=== PATIENT | male | born 1930 | race Caucasian/White ===

== ENCOUNTER 2017-04-20 15:03 | Inpatient (IN) | payer OTHER, BC ==
--- NOTE | 2017-04-20 15:12 | PDOC ---
Rapid Medical Evaluation Time Seen by Provider: 04/20/17 15:12 Medical Evaluation: Allergies Allergy/AdvReac Type Severity Reaction Status Date / Time No Known Drug Allergies Allergy Verified 12/23/15 07:56 04/20/17 15:12 I have performed a brief in-person evaluation of this patient. The patient presents with a chief complaint of: Labile BP and possible orthostatis. States he was sent in by Dr Fay's office. H/o HTN, CAD w/ stents , arthritis. Pt c/o not feeling well, but no WHYTE, dizziness, CP or SOB. Pertinent physical exam findings:Vss w/ unremarkable exam I have ordered the following:ekg/cxr/labs The patient will proceed to the ED for further evaluation. 04/20/17 15:17
[2017-04-20 15:53] LABS: BASO % 0.5 % (0-2.0); EOS % 0.6 % (0-4.5); HEMATOCRIT 42.1 % (35.4-49); LYMPH % 10.1 % (8-40); MCH 30.9 pg (25.7-33.7); MCHC 33.2 g/dl (32.0-35.9); MEAN CELL VOLUME 93.1 fl (80-96); MEAN PLT VOLUME 8.9 fl (7.5-11.1); MONO % 10.9 % (3.8-10.2); NEUT % 77.9 % (42.8-82.8); PLATELET COUNT 148 K/MM3 (134-434); RBC 4.52 M/mm3 (4.00-5.60); RDW 14.5 % (11.9-15.9); WHITE BLOOD COUNT 7.5 K/mm3 (4.0-10.0)
[2017-04-20 16:18] LABS: ALBUMIN 3.4 g/dl (3.4-5.0); ANION GAP 6 (8-16); BILIRUBIN,TOTAL 0.7 mg/dL (0.2-1.0); BLOOD UREA NITROGEN 32 mg/dL (7-18); CALCIUM 8.5 mg/dL (8.5-10.1); CHLORIDE 102 mmol/L (98-107); CO2 30 mmol/L (21-32); CREATININE 1.5 mg/dL (0.7-1.3); GLUCOSE,RANDOM 102 mg/dL (74-106); SGPT/ALT 26 U/L (12-78); SODIUM 138 mmol/L (136-145); TOT PROT 7.1 g/dl (6.4-8.2)
--- NOTE | 2017-04-20 16:18 | PDOC ---
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 Patient reports being called by PCP to come to the ED to get an Echo as well as further evaluation, due to a Dig level of 3.4. Patient reports experiencing decrease in balance when standing and walking. He reports experiencing runny nose as well as lightheadedness when standing and lying down. Patient currently has not complaints of pain in the ED. Denies chest pain, SOB. Denies nausea, vomiting. Denies fevers, chills. Denies contact with sick individual, out of state travel. Denies any other symptoms. Allergies: None Social history: No smoking. No alcohol. No illicit drugs. Surgical history: Appendectomy, Ileal Conduit (Urostomy), Stent PMD: Dr. Fay <Jeffry Dugan - Last Filed: 04/20/17 19:02> <Milly Mahoney - Last Filed: 04/20/17 19:40> <Mayra Yu - Last Filed: 04/27/17 20:18> - General Chief Complaint: Blood Pressure Problem Stated Complaint: ELEVATED BP Time Seen by Provider: 04/20/17 15:12 Past History - Past Medical History Anemia: No Asthma: No Cancer: Yes (Prostate) Cardiac Disorders: Yes (S/P PA (1999)/ A-Fib) CVA: No COPD: No CHF: No DVT: No Dementia: No Diabetes: No GI Disorders: No Disorders: No HTN: No Hypercholesterolemia: Yes Liver Disease: No Seizures: No Thyroid Disease: No - Surgical History Abdominal Surgery: No Appendectomy: Yes Cardiac Surgery: Yes (3x s/p stent placement) Cholecystectomy: No Lung Surgery: No Neurologic Surgery: No Orthopedic Surgery: Yes (S/P Laminectomy 2002) - Immunization History Immunization Up to Date: Yes - Suicide/Smoking/Psychosocial Hx Smoking Status: No Smoking History: Never smoked Have you smoked in the past 12 months: No Number of Cigarettes Smoked Daily: 0 Information on smoking cessation initiated: No Hx Alcohol Use: No Drug/Substance Use Hx: No Substance Use Type: None Hx Substance Use Treatment: No <Cinthya Ocampo - Last Filed: 04/20/17 16:18> <Jeffry Dugan - Last Filed: 04/20/17 19:02> <Milly Mahoney - Last Filed: 04/20/17 19:40> <Mayra Yu - Last Filed: 04/27/17 20:18> - Past Medical History Allergies/Adverse Reactions: Allergies Allergy/AdvReac Type Severity Reaction Status Date / Time No Known Drug Allergies Allergy Verified 12/23/15 07:56 Home Medications: Ambulatory Orders Pitavastatin Calcium [Livalo] 1 mg PO DAILY 11/02/15 Apixaban [Eliquis -] 5 mg PO BID #60 tablet 04/24/17 Metoprolol Tartrate [Lopressor -] 25 mg PO TID #90 tablet 04/24/17 Review of Systems - Review of Systems Able to Perform ROS?: Yes Comments:: 04/20/17 19:02 GENERAL/CONSTITUTIONAL: No fever or chills. No weakness. HEAD, EYES, EARS, NOSE AND THROAT: No change in vision. No ear pain or discharge. No sore throat. CARDIOVASCULAR: No chest pain or shortness of breath. RESPIRATORY: No cough, wheezing, or hemoptysis. GASTROINTESTINAL: No nausea, vomiting, diarrhea or constipation. GENITOURINARY: No dysuria, frequency, or change in urination. MUSCULOSKELETAL: No joint or muscle swelling or pain. No neck or back pain. SKIN: No rash NEUROLOGIC: +Lightheadedness. +Loss of balance. No headache, vertigo, loss of consciousness, or change in strength/sensation. ENDOCRINE: No increased thirst. No abnormal weight change. HEMATOLOGIC/LYMPHATIC: No anemia, easy bleeding, or history of blood clots. ALLERGIC/IMMUNOLOGIC: No hives or skin allergy. All Other Systems: Reviewed and Negative <Jeffry Dugan - Last Filed: 04/20/17 19:02> *Physical Exam - Vital Signs Last Vital Signs Temp Pulse Resp BP Pulse Ox 97.0 F L 59 L 18 148/62 98 04/20/17 15:15 04/20/17 15:15 04/20/17 15:15 04/20/17 15:15 04/20/17 15:15 <Cinthya Ocampo - Last Filed: 04/20/17 16:18> - Vital Signs Last Vital Signs Temp Pulse Resp BP Pulse Ox 97.0 F L 59 L 18 148/62 98 04/20/17 15:15 04/20/17 15:15 04/20/17 15:15 04/20/17 15:15 04/20/17 15:15 - Physical Exam Comments: 04/20/17 19:02 GENERAL: Awake, alert, and fully oriented, in no acute distress HEAD: No signs of trauma EYES: PERRLA, EOMI, sclera anicteric, conjunctiva clear ENT: Auricles normal inspection, hearing grossly normal, nares patent, oropharynx clear without exudates. Moist mucosa NECK: Normal ROM, supple, no lymphadenopathy, JVD, or masses LUNGS: Breath sounds equal, clear to auscultation bilaterally. No wheezes, and no crackles HEART: Regular rate and rhythm, normal S1 and S2, no murmurs, rubs or gallops ABDOMEN: Soft, nontender, normoactive bowel sounds. No guarding, no rebound. No masses EXTREMITIES: Normal range of motion, no edema. No clubbing or cyanosis. No cords, erythema, or tenderness NEUROLOGICAL: Cranial nerves II through XII grossly intact. Normal speech, normal gait SKIN: Warm, Dry, normal turgor, no rashes or lesions noted. <Jeffry Dugan - Last Filed: 04/20/17 19:02> - Vital Signs Last Vital Signs Temp Pulse Resp BP Pulse Ox 97.0 F L 59 L 18 148/62 98 04/20/17 15:15 04/20/17 15:15 04/20/17 15:15 04/20/17 15:15 04/20/17 15:15 <Milly Mahoney - Last Filed: 04/20/17 19:40> - Vital Signs Last Vital Signs Temp Pulse Resp BP Pulse Ox 97.0 F L 65 18 151/87 98 04/20/17 15:15 04/20/17 20:07 04/20/17 20:13 04/20/17 20:07 04/20/17 20:13 <Mayra Yu - Last Filed: 04/27/17 20:18> ED Treatment Course - LABORATORY CBC & Chemistry Diagram: 04/20/17 15:40 04/20/17 15:40 - ADDITIONAL ORDERS Additional order review: 04/20/17 15:40 RBC 4.52 D MCV 93.1 MCHC 33.2 RDW 14.5 MPV 8.9 Neutrophils % 77.9 Lymphocytes % 10.1 Monocytes % 10.9 H Eosinophils % 0.6 Basophils % 0.5 <Cinthya Ocampo - Last Filed: 04/20/17 16:18> - LABORATORY CBC & Chemistry Diagram: 04/20/17 15:40 04/20/17 15:40 - ADDITIONAL ORDERS Additional order review: Laboratory Results 04/20/17 04/20/17 16:12 15:40 Sodium 138 Potassium 4.9 Chloride 102 Carbon Dioxide 30 Anion Gap 6 L BUN 32 H Creatinine 1.5 H Creat Clearance w eGFR 44.17 Random Glucose 102 Calcium 8.5 Total Bilirubin 0.7 AST 9 L D ALT 26 D Alkaline Phosphatase 118 H D Creatine Kinase 91 Troponin I 0.03 D Total Protein 7.1 Albumin 3.4 Digoxin 2.8139 H* 04/20/17 15:40 RBC 4.52 D MCV 93.1 MCHC 33.2 RDW 14.5 MPV 8.9 Neutrophils % 77.9 Lymphocytes % 10.1 Monocytes % 10.9 H Eosinophils % 0.6 Basophils % 0.5 <Jeffry Dugan - Last Filed: 04/20/17 19:02> - LABORATORY CBC & Chemistry Diagram: 04/20/17 15:40 04/20/17 15:40 - ADDITIONAL ORDERS Additional order review: Laboratory Results 04/20/17 04/20/17 16:12 15:40 Sodium 138 Potassium 4.9 Chloride 102 Carbon Dioxide 30 Anion Gap 6 L BUN 32 H Creatinine 1.5 H Creat Clearance w eGFR 44.17 Random Glucose 102 Calcium 8.5 Total Bilirubin 0.7 AST 9 L D ALT 26 D Alkaline Phosphatase 118 H D Creatine Kinase 91 Troponin I 0.03 D Total Protein 7.1 Albumin 3.4 Digoxin 2.8139 H* 04/20/17 15:40 RBC 4.52 D MCV 93.1 MCHC 33.2 RDW 14.5 MPV 8.9 Neutrophils % 77.9 Lymphocytes % 10.1 Monocytes % 10.9 H Eosinophils % 0.6 Basophils % 0.5 - Additional Consults Time Called: 19:35 Consult/PCP: Awaiting call back from Dr. Colby <Milly Mahoney - Last Filed: 04/20/17 19:40> - LABORATORY CBC & Chemistry Diagram: 04/24/17 06:30 04/24/17 06:30 - ADDITIONAL ORDERS Additional order review: Laboratory Results 04/20/17 04/20/17 16:12 15:40 Sodium 138 Potassium 4.9 Chloride 102 Carbon Dioxide 30 Anion Gap 6 L BUN 32 H Creatinine 1.5 H Creat Clearance w eGFR 44.17 Random Glucose 102 Calcium 8.5 Total Bilirubin 0.7 AST 9 L D ALT 26 D Alkaline Phosphatase 118 H D Creatine Kinase 91 Troponin I 0.03 D Total Protein 7.1 Albumin 3.4 Digoxin 2.8139 H* 04/20/17 15:40 RBC 4.52 D MCV 93.1 MCHC 33.2 RDW 14.5 MPV 8.9 Neutrophils % 77.9 Lymphocytes % 10.1 Monocytes % 10.9 H Eosinophils % 0.6 Basophils % 0.5 <Mayra Yu - Last Filed: 04/27/17 20:18> Medical Decision Making - Medical Decision Making 04/27/17 20:16 Pt comes with dizziness aned near syncope. He has never had the sensation of passing out in the past. His dig level is elevated. He has a + hx of AFIB. I will admit him for evaluation of his afib and control of his dig level. All other labs are normal. <Mayra Yu - Last Filed: 04/27/17 20:18> *DC/Admit/Observation/Transfer <Cinthya Ocampo - Last Filed: 04/20/17 16:18> - Attestations Scribe Attestion: 04/20/17 19:03 Documentation prepared by Jeffry Dugan, acting as medical services manager for Cinthya Ocampo MD, MD/DO. <Jeffry Dugan - Last Filed: 04/20/17 19:02> <Milly Mahoney - Last Filed: 04/20/17 19:40> - Discharge Dispostion Admit: Yes <Mayra Yu - Last Filed: 04/27/17 20:18> Diagnosis at time of Disposition: Dizziness, Elevated digoxin level Atrial fibrillation Qualifiers: Atrial fibrillation type: chronic - Discharge Dispostion Disposition: HOME Condition at time of disposition: Good
[2017-04-20 16:21] LABS: ALK PHOS 118 U/L (45-117)
[2017-04-20 17:34] LABS: POTASSIUM 4.9 mmol/L (3.5-5.1); SGOT/AST 9 U/L (15-37)
--- NOTE | 2017-04-20 20:08 | CON.CARD ---
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 Discussed with his outpatient florist helper Dr. Fay. Recently Afib with poorly controlled rates. March echo with mildly reduced systolic function -- > attempt made to improve rate control. --> 1/3 digoxin increased from 0.125 to 0.250 mg/day, lopressor was increased from 25 bid to tid and midodrine increased to 7.5 mg tid to avoid worsening orthostatic hypotension. Patient felt well on new regimen. He mistakenly did not got to get his digoxin level drawn one week after changing the dose and instead waited until this week. Per report, results today were notable for elevated digoxin level of 3.4. Was evalauted by Dr. Fay in office and noted to have SVR, (see ekg findings below). Last dose of digoxin, lopressor and midodrine --> this morning. Patient remains asx. HR in ER averaging low 50's. chronic unstable gait. He denies chest pain, sob, worsening dyspnea on exertion, palpitations, near or true syncope, dizziness, weakness, orthopnea, PND or LE edema. He denies f/c/s, n/v/d, h/a, new rash, visual abnormalities, cough, congestion. pmhx/pshx: per hpi, additionally, Dementia (Possible mild early), Hemorrhoids, Cholelithiasis, Squamous Cell (Right pinna scalp), Appendectomy, Ileal Conduit (Urostomy), Stent (See above) fam hx: Sister (diverticulitis), Son (osteoarthritis) social hx: Never smoked ros: per [facility] Ambulatory Orders Pitavastatin Calcium [Livalo] 1 mg PO DAILY 11/02/15 --> per office notes, 2 mg Apixaban [Eliquis -] 2.5 mg PO BID #30 tablet 11/06/15 --> per office notes on 5 mg bid Metoprolol Tartrate [Lopressor -] 25 mg PO BID #60 tablet 11/06/15 --> per office notes on TID Cephalexin 250 mg PO TID 12/21/15 Per office notes also on midodrine 7.5 mg tid, florinef 0.1 mg/day, digoxin Vital Signs - 24 hr 04/20/17 15:15 Temperature 97.0 F L Pulse Rate 59 L Respiratory 18 Rate Blood Pressure 148/62 O2 Sat by Pulse 98 Oximetry (%) Intake & Output 04/18/17 04/19/17 04/20/17 04/21/17 07:59 07:59 07:59 07:59 Weight 150 lb nad, calm jvd flat, neck supple ctab, nl effort irregularly irregular, nl s1, s2 2/6 sys murmur at apex + bs soft nt nd, no hsm ext without e/c/c chronic venous stasis discoloration + dp/pt, no carotid bruits aaox3 no jaundice, diaphoresis. CBC, BMP 04/20/17 15:40 04/20/17 15:40 Laboratory Tests 04/20/17 15:40 Total Bilirubin 0.7 AST 9 L D ALT 26 D Alkaline Phosphatase 118 H D Creatine Kinase 91 Troponin I 0.03 D Albumin 3.4 04/20/17 16:12 Digoxin 2.8139 H* EKG pending Per report office ekg --> afib with SVR, 33 bpm --> HR augmented to 40's on physical exam. tele: afib with SVR, 50's. no significant pauses. Echo 03/18: 1. Atrial fibrillation, with HRs ranging from 83-123 bpm (mostly in 90s-110s). 2. The left ventricular size is normal. 3. LA pressure is elevated. 4. Assessment of LVEF is confounded by atrial fibrillation rhythm with very variable R-R intervals. When analyzing beats occurring during average R-R intervals, EF appears to be [id number] reduced, in the range of 45%. Global hypokinesis present. 5. The right ventricle is normal in size and function. 6. Left atrium is severely dilated by volume. 7. The right atrium is mildly enlarged. 8. Trace amount of aortic regurgitation. 9. Moderate mitral regurgitation is present (central jet). Estimated regurgitant volume = 22 cc, ERO 0.15 cm2. 10. Moderate tricuspid regurgitation present. (No systolic flow reversal present in hepatic vein.) 11. Unable to estimate RVSP due to inadequate TR jet spectral doppler profile ( it is at least 35 mmHg). 12. Normal inferior vena cava with normal inspiratory collapse consistent with estimated right atrial pressure of 3 mmHg. 13. There is a trivial pericardial effusion present, consistent with physiologic fluid level. Holter 02/16: Afib, not controlled: average 107, max 145, 12 hours with mean > 100 bpm. 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 afib/bradycardia/dig toxicity - recently with uncontrolled rates (see results above) and concern for developing tachymyopathy. Rate control c/b low sbp's (sbp's typically 100's) and symptomatic orthostatic hypotension. - Elevated digoxin level now s/p increasing home regimen from digoxin 0.125 to 0.250 mg/day and increasing lopressor from 25 bid to tid. - Currently, HR's improving, patient is hemodynamically stable and asx. Hold digoxin, lopressor and midodrine until digoxin level normalizes. con't tele monitoring, daily digoxin and potassium level. - If HR's increase before digoxin level normalizes, can consider resuming low dose lopressor alone. If bp support needed at that time, would avoid midodrine while digoxin level elevated (may potentiate bradycardic effects). Can consider adding back florinef 0.1 mg daily with close monitoring of potassium. - con't eliquis 5 mg bid. (risk benefit of AC/Watchman device discussions have already taken place between patient and florist helper) cardiomyopathy (mild-mod depressed LV fn, global) with mod mr - Recently with newly depressed LVEF, presumed tachymyopathy. - rate control as mentioned above. holding bb as mentioned above. low sbp's will likely limit ability to add additional HF meds - currently euvolemic off diuretics. daily weights, i/o's. CAD s/p HI and prior PCI/HL - prior patent mlad and Lcx stent with ?residual rca disease (but no ischemia on subsequent stress testing). last stent 2005. - no need for additional ASA on AC given age, bleeding risk, per recent expert consensus. con't statin (on livalo 2 mg qhs as outpatient) - no anginal sx's. CE's neg x 1. EKG pending. positional light-headedness/orthostatic hypotension/chronic dysequilibrium - on midodrine and florinef. mgm't as mentioned above. - currently bp wnl and patient without complaints of dizziness. CKD - unknown baseline ? 1.2-1.5? based on prior [facility] labs. - Cr 1.3 on office labs 03/2017 --> no sig change here. Plan discussed with outpatient florist helper, ER MD and outpatient pmd. > 35 min spent caring for patient.
[2017-04-20 20:40] LABS: URINE APPEARANCE CLOUDY; URINE BILIRUBIN NEGATIVE (NEGATIVE); URINE BLOOD 1+ (NEGATIVE); URINE COLOR YELLOW; URINE GLUCOSE (UA) NEGATIVE (NEGATIVE); URINE KETONE NEGATIVE (NEGATIVE); URINE NITRITE NEGATIVE (NEGATIVE); URINE PROTEIN NEGATIVE (NEGATIVE); URINE UROBILINOGEN NEGATIVE mg/dL (0.2-1.0)
[2017-04-20 20:42] LABS: URINE LEUK ESTERASE 2+ (NEGATIVE)
[2017-04-20 20:51] LABS: EPI CELLS RARE /HPF (FEW); URINE BACTERIA RARE /hpf (NONE SEEN); URINE MUCUS RARE
[2017-04-20] MEDS ORDERED: CEPHALEXIN MONOHYDRATE 250 MG CAPSULE (FP) ONE (22:42)
[2017-04-20] MEDS ORDERED: ATORVASTATIN CA 40 MG TABLET (FP) ONE (22:43)
[2017-04-20] MEDS: CEPHALEXIN MONOHYDRATE 250 MG CAPSULE (FP) PO SCH (22:47)
[2017-04-20] MEDS: ATORVASTATIN CA 20 MG TABLET (FP) PO SCH (22:47)
[2017-04-20] MEDS: APIXABAN 5 MG TABLET PO SCH (22:47)
[2017-04-21] MEDS ORDERED: LORazepam 2 MG/ML SDV VIAL ONE (05:33)
[2017-04-21] MEDS ORDERED: LORazepam 2 MG/ML SDV VIAL IM ONE (05:45)
[2017-04-21] MEDS: CEPHALEXIN MONOHYDRATE 250 MG CAPSULE (FP) PO SCH ×3 (05:47→22:24)
[2017-04-21 07:53] VITALS: BMI 20.8
[2017-04-21 08:29] LABS: CHLORIDE 104 mmol/L (98-107); POTASSIUM 4.3 mmol/L (3.5-5.1); SODIUM 142 mmol/L (136-145)
[2017-04-21 09:11] LABS: ANION GAP 8 (8-16); BLOOD UREA NITROGEN 29 mg/dL (7-18); CO2 30 mmol/L (21-32); CREATININE 1.5 mg/dL (0.7-1.3); GLUCOSE,RANDOM 95 mg/dL (74-106); MAGNESIUM 2.1 mg/dL (1.8-2.4)
[2017-04-21] MEDS: APIXABAN 5 MG TABLET PO SCH ×3 (09:15→22:24)
[2017-04-21] MEDS ORDERED: PITAVASTATIN CALCIUM 1 MG PO SCH (10:00)
--- NOTE | 2017-04-21 11:45 | PN ---
Progress Note, Physician History of Present Illness: Combative overnight Required Ativan for sedation This AM remains heavily sedated. - Current Medication List Current Medications: Active Medications Apixaban (Eliquis -) 5 mg PO BID [facility] Last Admin: 04/21/17 11:29 Dose: 5 mg Atorvastatin Calcium (Lipitor -) 20 mg PO HS [facility] Last Admin: 04/20/17 22:47 Dose: 20 mg Cephalexin HCl (Keflex -) 250 mg PO TID [facility] Last Admin: 04/21/17 05:47 Dose: 250 mg - Objective Vital Signs: Vital Signs Temperature 98.8 F 04/21/17 04:00 Pulse Rate 80 04/21/17 04:00 Respiratory Rate 19 04/21/17 08:40 Blood Pressure 145/89 04/21/17 04:00 O2 Sat by Pulse Oximetry (%) 98 04/21/17 08:40 Constitutional: Yes: No Distress, Other (Sedated) Eyes: Yes: WNL HENT: Yes: WNL Neck: Yes: WNL Cardiovascular: Yes: Pulse Irregular Respiratory: Yes: CTA Bilaterally Gastrointestinal: Yes: Normal Bowel Sounds Extremities: Yes: WNL Edema: No Labs: CBC, BMP 04/20/17 15:40 04/21/17 07:20 Assessment/Plan 86 yo with h/o AF on eliquis, CAD s/p SC and multivessel PCI (last 2005) with neg MPI 2014, new cardiomyopathy, positional light-headedness /orthostatic hypotension (on midodrine and florinef)/chronic dysequilibrium, hyperlipidemia, CKD, Prostate CA s/p post XRT 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 afib/bradycardia/dig toxicity - recently with uncontrolled rates (see results above) and concern for developing tachymyopathy. Rate control c/b low sbp's (sbp's typically 100's) and symptomatic orthostatic hypotension. - Elevated digoxin level now s/p increasing home regimen. from digoxin 0.125 to 0.250 mg/day and increasing lopressor from 25 bid to tid. - Currently, HR's improving, patient is hemodynamically stable and asx. -Dig level remains elevated, continue to Hold digoxin, lopressor and midodrine until digoxin level normalizes. con't tele monitoring, daily digoxin and potassium level. -Last evening complicated by combative state, but unclear if this is baseline for him?? cardiomyopathy (mild-mod depressed LV fn, global) with mod mr - Recently with newly depressed LVEF, presumed tachymyopathy. - rate control as mentioned above. holding bb as mentioned above. low sbp's will likely limit ability to add additional HF meds - currently euvolemic off diuretics. daily weights, i/o's. CAD s/p SC and prior PCI/HL - prior patent mlad and Lcx stent with ?residual rca disease (but no ischemia on subsequent stress testing). last stent 2005. - no need for additional ASA on AC given age, bleeding risk, per recent expert consensus. con't statin (on livalo 2 mg qhs as outpatient) - no anginal sx's. CE's neg x 1. EKG pending. positional light-headedness/orthostatic hypotension/chronic dysequilibrium - on midodrine and florinef as outpatient on hold for now. - currently bp wnl CKD - unknown baseline ? 1.2-1.5? based on prior [facility] labs. - Cr 1.3 on office labs 03/2017 --> no sig change here.
--- NOTE | 2017-04-21 13:28 | HP ---
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: Dementia (Possible mild early) Cardiovascular: Yes: AFIB (Resolved), CAD (LAD stent Cath 11/05 L Cx and distal RCA not amenable to stent), HTN, Hyperlipdemia, [place] (1999) Gastrointestinal: Yes: Hemorrhoids Hepatobiliary: Yes: Cholelithiasis Renal/: Yes: 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) Heme/Onc: Yes: B12 Deficiency, 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) Infectious Disease: Yes: Other (Chronic bacteruria/pyuria with urostomy) Musculoskeletal: Yes: Osteoarthritis (DISH syndrome) Dermatology: Yes: Squamous Cell (Right pinna scalp) - Past Surgical History Past Surgical History: Yes: Appendectomy, Ileal Conduit (Urostomy), Stent (See above) - Smoking History Smoking history: Never smoked Have you smoked in the past 12 months: No Aproximately how many cigarettes per day: 0 - Alcohol/Substance Use Hx Alcohol Use: Yes (socially) History of Substance Use: reports: None - Social History ADL: Independent History of Recent Travel: No Home Medications - Allergies Allergies/Adverse Reactions: Allergies Allergy/AdvReac Type Severity Reaction Status Date / Time No Known Drug Allergies Allergy Verified 12/23/15 07:56 - Home Medications Home Medications: Ambulatory Orders RX: Pitavastatin Calcium [Livalo] 1 mg PO DAILY 11/02/15 RX: Apixaban [Eliquis -] 2.5 mg PO BID #30 tablet 11/06/15 RX: Metoprolol Tartrate [Lopressor -] 25 mg PO BID #60 tablet 11/06/15 RX: Cephalexin 250 mg PO TID 12/21/15 Family Disease History - Family Disease History Family Disease History: Other: Sister (diverticulitis), Son (osteoarthritis) Review of Systems Unable to obtain ROS, reason: Limited due to confusion - Review of Systems Constitutional: reports: Lethargy Respiratory: reports: No Symptoms Gastrointestinal: reports: No Symptoms Genitourinary: reports: Incontinence Musculoskeletal: reports: No Symptoms Neurological: reports: Confusion, Dizziness Endocrine: reports: No Symptoms Hematology/Lymphatic: reports: No Symptoms Physical Examination Vital Signs: Vital Signs Temperature 98.8 F 04/21/17 04:00 Pulse Rate 80 04/21/17 04:00 Respiratory Rate 19 04/21/17 08:40 Blood Pressure 145/89 04/21/17 04:00 O2 Sat by Pulse Oximetry (%) 98 04/21/17 08:40 Elderly man not in acute distress looks confused HEENT: Mm moist, no anemia NECK: No JVd no Bruit CHEST: CTA B/L CVS; S1S2 Irregular ABD: No distention, non tender BS + EXT: No edema feet, no calf tenderness, Pulsess [employer] 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 Code(s): I48.91 - UNSPECIFIED ATRIAL FIBRILLATION Qualifiers: (2) Elevated digoxin level Assessment/Plan: admitted with dig level 2.89Recently dose was increased now of Dig F/U cardiology recommendations and Dig level. Code(s): R78.89 - FINDING OF OTH SUBSTANCES, NOT NORMALLY FOUND IN BLOOD (3) Anemia Assessment/Plan: chronic stable Code(s): D64.9 - ANEMIA, UNSPECIFIED Qualifiers: Anemia type: unspecified type Qualified Code(s): D64.9 - Anemia, unspecified (4) Dizziness Assessment/Plan: Due to elevated dig level f/u clinically. Code(s): R42 - DIZZINESS AND GIDDINESS (5) ASHD (arteriosclerotic heart disease) Assessment/Plan: Stable last NST -ve Code(s): I25.10 - ATHSCL HEART DISEASE OF [place] CORONARY ARTERY W/O ANG PCTRS (6) Altered mental status Assessment/Plan: Most likely toxic metabolic encephalopathy, lorazepalm PRN, Quinn consult. Code(s): R41.82 - ALTERED MENTAL STATUS, UNSPECIFIED (7) Orthostatic dizziness Assessment/Plan: Hold Mododrine fall precautions Code(s): R42 - DIZZINESS AND GIDDINESS
[2017-04-21] MEDS: SODIUM CHLORIDE 1,000 ML IV SCH (13:41)
--- NOTE | 2017-04-21 15:15 | EKG ---
Test Reason : Blood Pressure : / mmHG Vent. Rate : 085 BPM Atrial Rate : 227 BPM P-R Int : 000 ms QRS Dur : 086 ms QT Int : 342 ms P-R-T Axes : 000 063 263 degrees QTc Int : 406 ms ATRIAL FIBRILLATION ABNORMAL ECG WHEN COMPARED WITH ECG OF 20-APR-2017 17:30, VENT. RATE HAS INCREASED BY 29 BPM T WAVE INVERSION NOW EVIDENT IN INFERIOR LEADS NONSPECIFIC T WAVE ABNORMALITY NOW EVIDENT IN LATERAL LEADS Confirmed by Indio Villarreal ([id number]) on 04/21/2017 3:14:25 PM Referred By: Eleni NICHOLE Confirmed By:Indio Villarreal
[2017-04-21] MEDS: ATORVASTATIN CA 20 MG TABLET (FP) PO SCH (22:25)
[2017-04-22] MEDS: ATORVASTATIN CA 20 MG TABLET (FP) PO SCH ×2 (02:26→21:46)
[2017-04-22] MEDS: APIXABAN 5 MG TABLET PO SCH ×3 (02:26→21:46)
[2017-04-22] MEDS: CEPHALEXIN MONOHYDRATE 250 MG CAPSULE (FP) PO SCH ×4 (02:26→21:48)
[2017-04-22] MEDS ORDERED: LORazepam 2 MG/ML SDV VIAL ONE (02:56)
[2017-04-22] MEDS ORDERED: LORazepam 2 MG/ML SDV VIAL IM PRN (02:59)
[2017-04-22 07:16] LABS: BASO % 0.3 % (0-2.0); EOS % 0.5 % (0-4.5); HEMATOCRIT 46.8 % (35.4-49); MCH 30.2 pg (25.7-33.7); MEAN CELL VOLUME 94.5 fl (80-96); MONO % 10.2 % (3.8-10.2); PLATELET COUNT 169 K/MM3 (134-434); RBC 4.95 M/mm3 (4.00-5.60); RDW 14.7 % (11.9-15.9); WHITE BLOOD COUNT 8.7 K/mm3 (4.0-10.0)
[2017-04-22 07:31] LABS: ANION GAP 8 (8-16); BLOOD UREA NITROGEN 29 mg/dL (7-18); CALCIUM 9.1 mg/dL (8.5-10.1); CHLORIDE 106 mmol/L (98-107); CO2 30 mmol/L (21-32); GLUCOSE,RANDOM 82 mg/dL (74-106); POTASSIUM 4.7 mmol/L (3.5-5.1); SODIUM 144 mmol/L (136-145)
[2017-04-22 07:46] LABS: CREATININE 1.4 mg/dL (0.7-1.3)
--- NOTE | 2017-04-22 11:16 | PN ---
Progress Note, Physician History of Present Illness: Fall risk overnight, moved to front office assistant area NO other events Discussed with overnight his combativeness Tele shows Afib in the 70s. - Current Medication List Current Medications: Active Medications Apixaban (Eliquis -) 5 mg PO BID [facility] Last Admin: 04/22/17 09:11 Dose: 5 mg Atorvastatin Calcium (Lipitor -) 20 mg PO HS [facility] Last Admin: 04/22/17 02:26 Dose: 20 mg Cephalexin HCl (Keflex -) 250 mg PO TID [facility] Last Admin: 04/22/17 05:36 Dose: 250 mg Sodium Chloride (Normal Saline -) 1,000 mls @ 50 mls/hr IV ASDIR [facility] Last Admin: 04/21/17 13:41 Dose: 50 mls/hr Lorazepam (Ativan Injection -) 1 mg IM Q6H PRN PRN Reason: AGITATION - Objective Vital Signs: Vital Signs Temperature 97.6 F 04/22/17 10:00 Pulse Rate 115 H 04/22/17 10:00 Respiratory Rate 22 04/22/17 10:00 Blood Pressure 102/66 04/22/17 10:00 O2 Sat by Pulse Oximetry (%) 97 04/21/17 21:00 Constitutional: Yes: No Distress, Calm Eyes: Yes: WNL HENT: Yes: WNL Neck: Yes: WNL Cardiovascular: Yes: Pulse Irregular Respiratory: Yes: CTA Bilaterally Gastrointestinal: Yes: Normal Bowel Sounds Extremities: Yes: WNL Edema: No Neurological: Yes: Other (Orieneted to "at home", 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 afib/bradycardia/dig toxicity - recently with uncontrolled rates (see results above) and concern for developing tachymyopathy. Rate control c/b low sbp's (sbp's typically 100's) and symptomatic orthostatic hypotension. - Elevated digoxin level now s/p increasing home regimen. from digoxin 0.125 to 0.250 mg/day and increasing lopressor from 25 bid to tid. - Currently, HR's improving, patient is hemodynamically stable and asx. -Dig level remains elevated but now trending down (2.09 today) and HR afib in the 70s -Will Hold on adding back BB today as Dig level remains elevated, likely add back tomorrow (sunday). -Unclear baseline mental status baseline. May consider neurological evalaution. -On eliquis cardiomyopathy (mild-mod depressed LV fn, global) with mod mr - Recently with newly depressed LVEF, presumed tachymyopathy. - rate control as mentioned above. holding bb as mentioned above. low sbp's will likely limit ability to add additional HF meds - currently euvolemic off diuretics. daily weights, i/o's. CAD s/p [place] and prior PCI/HL - prior patent mlad and Lcx stent with ?residual rca disease (but no ischemia on subsequent stress testing). last stent 2005. - no need for additional ASA on AC given age, bleeding risk, per recent expert consensus. con't statin (on livalo 2 mg qhs as outpatient) - no anginal sx's. CE's neg x 1. EKG pending. positional light-headedness/orthostatic hypotension/chronic dysequilibrium - on midodrine and florinef as outpatient on hold for now. - currently bp wnl without orthostasis or symptoms
--- NOTE | 2017-04-22 12:15 | PN ---
Progress Note, Physician Chief Complaint: Siting on chair no complaint more alert and calm - Current Medication List Current Medications: Active Medications Apixaban (Eliquis -) 5 mg PO BID [facility] Last Admin: 04/22/17 09:11 Dose: 5 mg Atorvastatin Calcium (Lipitor -) 20 mg PO HS [facility] Last Admin: 04/22/17 02:26 Dose: 20 mg Cephalexin HCl (Keflex -) 250 mg PO TID [facility] Last Admin: 04/22/17 05:36 Dose: 250 mg Sodium Chloride (Normal Saline -) 1,000 mls @ 50 mls/hr IV ASDIR [facility] Last Admin: 04/21/17 13:41 Dose: 50 mls/hr Lorazepam (Ativan Injection -) 1 mg IM Q6H PRN PRN Reason: AGITATION - Objective Vital Signs: Vital Signs Temperature 97.6 F 04/22/17 10:00 Pulse Rate 115 H 04/22/17 10:00 Respiratory Rate 22 04/22/17 10:00 Blood Pressure 102/66 04/22/17 10:00 O2 Sat by Pulse Oximetry (%) 97 04/21/17 21:00 Elderly man not in acute distress looks confused HEENT: Mm moist, no anemia NECK: No JVd no Bruit CHEST: CTA B/L CVS; S1S2 Irregular ABD: No distention, non tender BS + EXT: No daryl a feet. 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 Labs: CBC, BMP 04/22/17 06:15 04/22/17 06:15 Laboratory Results - last 24 hr 04/22/17 04/22/17 06:15 06:15 WBC 8.7 RBC 4.95 Hgb 15.0 Hct 46.8 MCV 94.5 MCH 30.2 MCHC 32.0 RDW 14.7 Plt Count 169 MPV 9.0 Neutrophils % 80.0 Lymphocytes % 9.0 Monocytes % 10.2 Eosinophils % 0.5 Basophils % 0.3 Sodium 144 Potassium 4.7 Chloride 106 Carbon Dioxide 30 Anion Gap 8 BUN 29 H Creatinine 1.4 H Random Glucose 82 Calcium 9.1 Digoxin 2.0958 H Problem List - Problems (1) Atrial fibrillation Assessment/Plan: Chronic rate controlled on AC Of B Blockers and Digoxine Code(s): I48.91 - UNSPECIFIED ATRIAL FIBRILLATION Qualifiers: (2) Elevated digoxin level Assessment/Plan: today Dig 2.09, Recently dose was increased now of Dig F/U cardiology recommendations and Dig level. Code(s): R78.89 - FINDING OF OTH SUBSTANCES, NOT NORMALLY FOUND IN BLOOD (3) Anemia Assessment/Plan: chronic stable Code(s): D64.9 - ANEMIA, UNSPECIFIED Qualifiers: Anemia type: unspecified type Qualified Code(s): D64.9 - Anemia, unspecified (4) Dizziness Assessment/Plan: Due to Symptomatic bradycardia now of B Blockers and Dig Code(s): R42 - DIZZINESS AND GIDDINESS (5) ASHD (arteriosclerotic heart disease) Assessment/Plan: Stable last NST -ve Code(s): I25.10 - ATHSCL HEART DISEASE OF [place] CORONARY ARTERY W/O ANG PCTRS (6) Altered mental status Assessment/Plan: Most likely toxic metabolic encephalopathy, lorazepalm PRN, Quinn consult. Code(s): R41.82 - ALTERED MENTAL STATUS, UNSPECIFIED (7) Orthostatic dizziness Assessment/Plan: Hold Mododrine fall precautions Code(s): R42 - DIZZINESS AND GIDDINESS
[2017-04-22] MEDS ORDERED: PT OWN MED DRAWER 7, Y5N ONE (12:52)
[2017-04-23] MEDS: CEPHALEXIN MONOHYDRATE 250 MG CAPSULE (FP) PO SCH ×3 (05:35→21:17)
--- NOTE | 2017-04-23 08:47 | PN ---
Progress Note, Physician Chief Complaint: afib, mila History of Present Illness: wandering halls, moderately confused, not combative. balance poor, sways to side at times but self-corrects. denies cp, sob, palpitations, or presyncope. post nasal drip with phlegm in throat no cigs - Current Medication List Current Medications: Active Medications Apixaban (Eliquis -) 5 mg PO BID [facility] Last Admin: 04/22/17 21:46 Dose: 5 mg Atorvastatin Calcium (Lipitor -) 20 mg PO HS [facility] Last Admin: 04/22/17 21:46 Dose: 20 mg Cephalexin HCl (Keflex -) 250 mg PO TID [facility] Last Admin: 04/23/17 05:35 Dose: 250 mg Sodium Chloride (Normal Saline -) 1,000 mls @ 50 mls/hr IV ASDIR [facility] Last Admin: 04/21/17 13:41 Dose: 50 mls/hr Lorazepam (Ativan Injection -) 1 mg IM Q6H PRN PRN Reason: AGITATION - Objective Vital Signs: Vital Signs Temperature 97.5 F L 04/23/17 05:39 Pulse Rate 93 H 04/23/17 05:39 Respiratory Rate 18 04/23/17 05:39 Blood Pressure 132/86 04/23/17 05:39 O2 Sat by Pulse Oximetry (%) 96 04/22/17 20:14 Constitutional: Yes: No Distress, Calm Eyes: No: Sclera Icterus HENT: No: Nasal Congestion Cardiovascular: Yes: Pulse Irregular, S1, S2, Other (PMI non diplaced). No: Gallop, Murmur Respiratory: Yes: CTA Bilaterally. No: Accessory Muscle Use, Rales, Wheezes Gastrointestinal: Yes: Normal Bowel Sounds, Soft. No: Tenderness Musculoskeletal: Yes: Other (No kyphosis) Extremities: No: Cold Edema: No Integumentary: No: Jaundice Neurological: Yes: Alert. No: Seizure Psychiatric: No: Agitated Labs: CBC, BMP 04/22/17 06:15 04/22/17 06:15 - ....Imaging EKG: Other (tele: afib HRs 100s-120s) Assessment/Plan Echo 03/18: 1. Atrial fibrillation, with HRs ranging from 83-123 bpm (mostly in 90s-110s). 2. The left ventricular size is normal. 3. LA pressure is elevated. 4. Assessment of LVEF is confounded by atrial fibrillation rhythm with very variable R-R intervals. When analyzing beats occurring during average R-R intervals, EF appears to be [id number] reduced, in the range of 45%. Global hypokinesis present. 5. The right ventricle is normal in size and function. 6. Left atrium is severely dilated by volume. 7. The right atrium is mildly enlarged. 8. Trace amount of aortic regurgitation. 9. Moderate mitral regurgitation is present (central jet). Estimated regurgitant volume = 22 cc, ERO 0.15 cm2. 10. Moderate tricuspid regurgitation present. (No systolic flow reversal present in hepatic vein.) 11. Unable to estimate RVSP due to inadequate TR jet spectral doppler profile ( it is at least 35 mmHg). 12. Normal inferior vena cava with normal inspiratory collapse consistent with estimated right atrial pressure of 3 mmHg. 13. There is a trivial pericardial effusion present, consistent with physiologic fluid level. Holter 02/16: Afib, not controlled: average 107, max 145, 12 hours with mean > 100 bpm. 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 afib/bradycardia/dig toxicity - chronic uncontrolled rates with new-onset tachymyopathy. Rate control c/b low sbp's (sbp's typically 100's) and symptomatic orthostatic hypotension. - dig incr'd 0.125 to 0.25 two weeks ago, level toxic as outpt with slow AF in office (HR 33), ? if any sx's from this - lopressor recently incr'd 25 bid to tid, with midodrine added to fludrocortisone 0.1mg qd to augment bp, with persistent SBP 90s-100 in office on DOA - above meds all held here, dig trended down, HRs well controlled (pt agitation/ combative sec to here, may be driving up HR and BP as well) - dig level down to 1.3, HRs now tachy. pt c/o'd frequent sleepiness/fatigue for ? amt of time, ? has been taking dig > 1 yr since prior to switching to me as cardio. on lopressor as well during that time. ? if fatigue is s.e. to one of these meds. - for now will try lopressor 25 bid, hold digoxin--may need to resume 0.125 mg qd later. - if fails this regimen, will need trial of amio vs AVN ablation/PPM - balance is very poor, and appears to be the major source of falls risk at this time. pt repeatedly declined vestibular therapy eval as outpt. - rec P.T. eval re: falls risk. if risk high, or if pt refuses to use walker, will have to d/w whether they want to prioritize risk of fall with ICH, vs risk of embolic CVA. (impossible to predict which risk is higher, however with CHADS VASC = 3, hence approx 3%/yr risk of stroke, after observing his gait/ balance today, it seems at present his risk of falls is much higher than 3%/ year.) - con't eliquis 5 mg bid for now. (pt has previously deferred Watchman consultation. would not pursue until cognitive status improves significantly-- suspect this will happen when back in home environment)) cardiomyopathy (mild-mod depressed LV fn, global) with mod mr - Recently with newly depressed LVEF, presumed tachymyopathy. - rate control as doing. - low dose BB as tolerates. low bp will not tolerate MAJOR/ARB - euvolemic, no diuretics. CAD s/p [place] and prior PCI/HL - prior patent mlad and Lcx stent with ?residual rca disease (but no ischemia on subsequent stress testing). last stent 2005. - no need for additional ASA on AC given age, bleeding risk, per recent expert consensus. con't statin (on livalo 2 mg qhs as outpatient) - no anginal sx's. CE's neg. positional light-headedness/orthostatic hypotension/chronic dysequilibrium/ repeated falls: - no recent falls - on midodrine (7.5 tid) and florinef (0.1 qd) at home, both started in past 1- 2 months. both held here. - check orthostatics CKD: - h/o cystectomy with ileal conduit, mild bilat hydro on recent sonogram - baseline creat around 1.3 - renal fxn stable here confusion: - suspect sundowning in pt with decreased memory evident on routine office visits with me - neuro input appreciated, ? dig effect--though note pt mentation seemed at his baseline when saw me in office 04/20 with peak dig toxic level at that time - f/u CT head
[2017-04-23] MEDS: APIXABAN 5 MG TABLET PO SCH ×2 (09:59→21:17)
--- NOTE | 2017-04-23 10:05 | CONSULT ---
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 During my evaluation, no compliants but being consulted for confusion. Did not have imaging of head and will order CT head to evaluate. OF note, elevated Dig level on admission which can precipitate confusion. Patient also elderly and given h/o dementia confusion may be 2/2 unfamiliar hospital setting. Otherwise, pleasant during encounter. Past History - Past Medical History Anemia: No Asthma: No Cancer: Yes (Prostate) Cardiac Disorders: Yes (S/P [place] (1999)/ A-Fib) CVA: No COPD: No CHF: No DVT: No Dementia: No Diabetes: No GI Disorders: No Disorders: No HTN: No Hypercholesterolemia: Yes Liver Disease: No Seizures: No Thyroid Disease: No - Surgical History Abdominal Surgery: No Appendectomy: Yes Cardiac Surgery: Yes (3x s/p stent placement) Cholecystectomy: No Lung Surgery: No Neurologic Surgery: No Orthopedic Surgery: Yes (S/P Laminectomy 2002) - Immunization History Immunization Up to Date: Yes - Suicide/Smoking/Psychosocial Hx Smoking Status: No Smoking History: Never smoked Have you smoked in the past 12 months: No Number of Cigarettes Smoked Daily: 0 Information on smoking cessation initiated: No Hx Alcohol Use: No Drug/Substance Use Hx: No Substance Use Type: None Hx Substance Use Treatment: No - Past Medical History Allergies/Adverse Reactions: Allergies Allergy/AdvReac Type Severity Reaction Status Date / Time No Known Drug Allergies Allergy Verified 12/23/15 07:56 Home Medications: Ambulatory Orders Pitavastatin Calcium [Livalo] 1 mg PO DAILY 11/02/15 Apixaban [Eliquis -] 2.5 mg PO BID #30 tablet 11/06/15 Metoprolol Tartrate [Lopressor -] 25 mg PO BID #60 tablet 11/06/15 Cephalexin 250 mg PO TID 12/21/15 Review of Systems GENERAL/CONSTITUTIONAL: No fever or chills. No weakness. HEAD, EYES, EARS, NOSE AND THROAT: No change in vision. No ear pain or discharge. No sore throat. CARDIOVASCULAR: No chest pain or shortness of breath. RESPIRATORY: No cough, wheezing, or hemoptysis. GASTROINTESTINAL: No nausea, vomiting, diarrhea or constipation. GENITOURINARY: No dysuria, frequency, or change in urination. MUSCULOSKELETAL: No joint or muscle swelling or pain. No neck or back pain. SKIN: No rash NEUROLOGIC: +Lightheadedness. +Loss of balance. No headache, vertigo, loss of consciousness, or change in strength/sensation. ENDOCRINE: No increased thirst. No abnormal weight change. HEMATOLOGIC/LYMPHATIC: No anemia, easy bleeding, or history of blood clots. ALLERGIC/IMMUNOLOGIC: No hives or skin allergy. *Physical Exam Vital Signs Period Temp Pulse Resp BP Sys/Melchor Pulse Ox Last 24 Hr 97.3 F-98.2 F 85-100 18-20 106-136/56-94 96 04/20/17 19:02 GENERAL: Awake, alert, and fully oriented, in no acute distress HEAD: No signs of trauma EYES: PERRLA, EOMI, sclera anicteric, conjunctiva clear ENT: Auricles normal inspection, hearing grossly normal, nares patent, oropharynx clear without exudates. Moist mucosa NECK: Normal ROM, supple, no lymphadenopathy, JVD, or masses LUNGS: Breath sounds equal, clear to auscultation bilaterally. No wheezes, and no crackles HEART: Regular rate and rhythm, normal S1 and S2, no murmurs, rubs or gallops ABDOMEN: Soft, nontender, normoactive bowel sounds. No guarding, no rebound. No masses EXTREMITIES: Normal range of motion, no edema. No clubbing or cyanosis. No cords, erythema, or tenderness NEUROLOGICAL: Cranial nerves II through XII grossly intact. Normal speech, normal gait SKIN: Warm, Dry, normal turgor, no rashes or lesions noted. Laboratory Results 04/20/17 04/20/17 16:12 15:40 Sodium 138 Potassium 4.9 Chloride 102 Carbon Dioxide 30 Anion Gap 6 L BUN 32 H Creatinine 1.5 H Creat Clearance w eGFR 44.17 Random Glucose 102 Calcium 8.5 Total Bilirubin 0.7 AST 9 L D ALT 26 D Alkaline Phosphatase 118 H D Creatine Kinase 91 Troponin I 0.03 D Total Protein 7.1 Albumin 3.4 Digoxin 2.8139 H* 04/20/17 15:40 RBC 4.52 D MCV 93.1 MCHC 33.2 RDW 14.5 MPV 8.9 Neutrophils % 77.9 Lymphocytes % 10.1 Monocytes % 10.9 H Eosinophils % 0.6 Basophils % 0.5 CT head ordered Plan: 86 year old male with a significant past medical history of Dementia, AFIB, CAD (LAD stent Cath 11/05 L Cx and distal RCA not amenable to stent), HTN, Hyperlipidemia, [place] (1999), Hemorrhoids, Cholelithiasis, 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 Order CT head Monitor Dig level, mental status should improve as this normalizes Confusion may be 2/2 unfamiliar hospital setting. Monitor BP, maintain normotensive range Monitor Atrial fib Fall preacautions Monitor lytes, infectious etiologies Maintain hydration
[2017-04-23] MEDS: METOPROLOL TARTRATE 25 MG TABLET (FP) PO SCH ×3 (12:20→21:18)
[2017-04-23] MEDS ORDERED: PT OWN MED DRAWER 7, Y5N ONE ×2 (12:20→20:55)
[2017-04-23] MEDS: SODIUM CHLORIDE 1,000 ML IV SCH (13:42)
--- NOTE | 2017-04-23 15:02 | PN ---
Progress Note, Physician Chief Complaint: Unable to obtain. Patient walking in [place] and quite confused today. Tells me that he is in a cage [place] the firehouse. - Current Medication List Current Medications: Active Medications Apixaban (Eliquis -) 5 mg PO BID [facility] Last Admin: 04/23/17 09:59 Dose: 5 mg Atorvastatin Calcium (Lipitor -) 20 mg PO HS [facility] Last Admin: 04/22/17 21:46 Dose: 20 mg Cephalexin HCl (Keflex -) 250 mg PO TID [facility] Last Admin: 04/23/17 13:41 Dose: 250 mg Sodium Chloride (Normal Saline -) 1,000 mls @ 50 mls/hr IV ASDIR [facility] Last Admin: 04/23/17 13:42 Dose: Not Given Lorazepam (Ativan Injection -) 1 mg IM Q6H PRN PRN Reason: AGITATION Metoprolol Tartrate (Lopressor -) 25 mg PO TID [facility] Last Admin: 04/23/17 13:41 Dose: Not Given - Objective Vital Signs: Vital Signs Temperature 36.4 C L 04/23/17 05:39 Pulse Rate 93 H 04/23/17 05:39 Respiratory Rate 18 04/23/17 05:39 Blood Pressure 132/86 04/23/17 05:39 O2 Sat by Pulse Oximetry (%) 96 04/22/17 20:14 Constitutional: Yes: Well Nourished, No Distress, Calm Cardiovascular: Yes: Pulse Irregular. No: Tachycardia, Gallop, Murmur, Rub Respiratory: Yes: Regular, CTA Bilaterally. No: Rales, Rhonchi, Wheezes Gastrointestinal: Yes: Normal Bowel Sounds, Soft. No: Distention, Tenderness Extremities: Yes: WNL Edema: No Labs: CBC, BMP 04/22/17 06:15 04/22/17 06:15 Problem List - Problems (1) Elevated digoxin level Assessment/Plan: -admitted -digoxin held -level now normal -defer restarting digoxin to cardiology Code(s): R78.89 - FINDING OF OTH SUBSTANCES, NOT NORMALLY FOUND IN BLOOD (2) Dementia Assessment/Plan: -with metabolic encephalopathy -neurology following and note reviewed -will d/w Dr Lopes baseline mental status Code(s): F03.90 - UNSPECIFIED DEMENTIA WITHOUT BEHAVIORAL DISTURBANCE Qualifiers: Dementia type: unspecified type Dementia behavioral disturbance: without behavioral disturbance Qualified Code(s): F03.90 - Unspecified dementia without behavioral disturbance (3) Atrial fibrillation Assessment/Plan: -on lopressor -rate controlled -eliquis restarted Code(s): I48.91 - UNSPECIFIED ATRIAL FIBRILLATION Qualifiers: Atrial fibrillation type: chronic (4) Orthostatic dizziness Assessment/Plan: -resolved with IVF Code(s): R42 - DIZZINESS AND GIDDINESS (5) CKD (chronic kidney disease) stage 3, GFR 30-59 ml/min Assessment/Plan: -baseline per labs in hospital -d/w PCP if consistent with outpatient labs Code(s): N18.3 - CHRONIC KIDNEY DISEASE, STAGE 3 (MODERATE) (6) HLD (hyperlipidemia) Assessment/Plan: -continue statin Code(s): E78.5 - HYPERLIPIDEMIA, UNSPECIFIED
[2017-04-23] MEDS: ATORVASTATIN CA 20 MG TABLET (FP) PO SCH (21:17)
--- NOTE | 2017-04-23 21:52 | EKG ---
Test Reason : Blood Pressure : / mmHG Vent. Rate : 056 BPM Atrial Rate : 300 BPM P-R Int : 000 ms QRS Dur : 094 ms QT Int : 398 ms P-R-T Axes : 000 060 042 degrees QTc Int : 384 ms ATRIAL FIBRILLATION WITH SLOW VENTRICULAR RESPONSE NONSPECIFIC ST AND T WAVE ABNORMALITY ABNORMAL ECG WHEN COMPARED WITH ECG OF 20-APR-2017 16:56, NO SIGNIFICANT CHANGE WAS FOUND Confirmed by SAM SANCHES MD ([id number]) on 04/23/2017 9:51:53 PM Referred By: Confirmed By:SAM SANCHES MD
[2017-04-24] MEDS: METOPROLOL TARTRATE 25 MG TABLET (FP) PO SCH ×2 (06:44→15:28)
[2017-04-24] MEDS: CEPHALEXIN MONOHYDRATE 250 MG CAPSULE (FP) PO SCH ×2 (06:44→15:52)
[2017-04-24 07:34] LABS: BASO % 0.7 % (0-2.0); EOS % 3.1 % (0-4.5); HEMATOCRIT 44.3 % (35.4-49); HEMOGLOBIN 14.3 GM/dL (11.7-16.9); LYMPH % 19.3 % (8-40); MCH 30.3 pg (25.7-33.7); MCHC 32.3 g/dl (32.0-35.9); MEAN CELL VOLUME 93.6 fl (80-96); MEAN PLT VOLUME 8.9 fl (7.5-11.1); MONO % 11.2 % (3.8-10.2); NEUT % 65.7 % (42.8-82.8); PLATELET COUNT 161 K/MM3 (134-434); RBC 4.73 M/mm3 (4.00-5.60); RDW 14.5 % (11.9-15.9)
[2017-04-24 08:00] LABS: ANION GAP 8 (8-16); BLOOD UREA NITROGEN 27 mg/dL (7-18); CHLORIDE 104 mmol/L (98-107); CO2 31 mmol/L (21-32); GLUCOSE,RANDOM 77 mg/dL (74-106); MAGNESIUM 2.1 mg/dL (1.8-2.4); POTASSIUM 4.2 mmol/L (3.5-5.1); SODIUM 143 mmol/L (136-145)
[2017-04-24 08:06] LABS: CREATININE 1.3 mg/dL (0.7-1.3); PHOSPHOROUS 2.6 mg/dL (2.5-4.9)
[2017-04-24] MEDS: APIXABAN 5 MG TABLET PO SCH (09:31)
--- NOTE | 2017-04-24 10:13 | PN ---
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 During my evaluation, no compliants but was being consulted for confusion but much improved this morning. More awake, alert, communicative. Nurse also noticed significant improvement. CT head reviewed and without acute changes. Elevated Dig level on admission which can precipitate confusion. Patient also elderly and given h/o dementia confusion may be 2/2 unfamiliar hospital setting. Otherwise, improving. Active Medications Apixaban (Eliquis -) 5 mg PO BID [facility] Last Admin: 04/24/17 09:31 Dose: 5 mg Atorvastatin Calcium (Lipitor -) 20 mg PO HS [facility] Last Admin: 04/23/17 21:17 Dose: 20 mg Cephalexin HCl (Keflex -) 250 mg PO TID [facility] Last Admin: 04/24/17 06:44 Dose: 250 mg Sodium Chloride (Normal Saline -) 1,000 mls @ 50 mls/hr IV ASDIR [facility] Last Admin: 04/23/17 13:42 Dose: Not Given Lorazepam (Ativan Injection -) 1 mg IM Q6H PRN PRN Reason: AGITATION Metoprolol Tartrate (Lopressor -) 25 mg PO TID [facility] Last Admin: 04/24/17 06:44 Dose: 25 mg Vital Signs Temperature 98.2 F 04/24/17 05:20 Pulse Rate 82 04/24/17 05:20 Respiratory Rate 20 04/24/17 05:20 Blood Pressure 119/64 04/24/17 05:20 O2 Sat by Pulse Oximetry (%) 99 04/23/17 21:00 04/20/17 19:02 GENERAL: Awake, alert, no distress, interactive HEAD: No signs of trauma EYES: PERRLA, EOMI, sclera anicteric, conjunctiva clear ENT: Auricles normal inspection, hearing grossly normal, nares patent, oropharynx clear without exudates. Moist mucosa NECK: Normal ROM, supple, no lymphadenopathy, JVD, or masses LUNGS: Breath sounds equal, clear to auscultation bilaterally. No wheezes, and no crackles HEART: Regular rate and rhythm, normal S1 and S2, no murmurs, rubs or gallops ABDOMEN: Soft, nontender, normoactive bowel sounds. No guarding, no rebound. No masses EXTREMITIES: Normal range of motion, no edema. No clubbing or cyanosis. No cords, erythema, or tenderness NEUROLOGICAL: Cranial nerves II through XII grossly intact. Strength intact, sensory normal, gait deffered SKIN: Warm, Dry, normal turgor, no rashes or lesions noted. CBCD WBC 6.0 K/mm3 (4.0-10.0) D 04/24/17 06:30 RBC 4.73 M/mm3 (4.00-5.60) 04/24/17 06:30 Hgb 14.3 GM/dL (11.7-16.9) 04/24/17 06:30 Hct 44.3 % (35.4-49) 04/24/17 06:30 MCV 93.6 fl (80-96) 04/24/17 06:30 MCHC 32.3 g/dl (32.0-35.9) 04/24/17 06:30 RDW 14.5 % (11.9-15.9) 04/24/17 06:30 Plt Count 161 K/MM3 (134-434) 04/24/17 06:30 MPV 8.9 fl (7.5-11.1) 04/24/17 06:30 CMP Sodium 143 mmol/L (136-145) 04/24/17 06:30 Potassium 4.2 mmol/L (3.5-5.1) 04/24/17 06:30 Chloride 104 mmol/L (98-107) 04/24/17 06:30 Carbon Dioxide 31 mmol/L (21-32) 04/24/17 06:30 Anion Gap 8 (8-16) 04/24/17 06:30 BUN 27 mg/dL (7-18) H 04/24/17 06:30 Creatinine 1.3 mg/dL (0.7-1.3) 04/24/17 06:30 Creat Clearance w eGFR 44.17 (>60) 04/20/17 15:40 Calcium 9.0 mg/dL (8.5-10.1) 04/24/17 06:30 Total Bilirubin 0.7 mg/dL (0.2-1.0) 04/20/17 15:40 AST 9 U/L (15-37) L D 04/20/17 15:40 ALT 26 U/L (12-78) D 04/20/17 15:40 Alkaline Phosphatase 118 U/L (45-117) H D 04/20/17 15:40 Total Protein 7.1 g/dl (6.4-8.2) 04/20/17 15:40 Albumin 3.4 g/dl (3.4-5.0) 04/20/17 15:40 CT head reviewed Plan: 86 year old male with a significant past medical history of Dementia, AFIB, CAD (LAD stent Cath 11/05 L Cx and distal RCA not amenable to stent), HTN, Hyperlipidemia, [place] (1999), Hemorrhoids, Cholelithiasis, 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 CT head reviewed and not acute changes Possibly 2/2 Dig toxicity and/or unfamiliar hospital setting. Monitor BP, maintain normotensive range Monitor Atrial fib Fall preacautions Monitor lytes, infectious etiologies Maintain hydration Improved mental status
--- NOTE | 2017-04-24 12:03 | PN ---
Progress Note, Physician - Current Medication List Current Medications: Active Medications Apixaban (Eliquis -) 5 mg PO BID [facility] Last Admin: 04/24/17 09:31 Dose: 5 mg Atorvastatin Calcium (Lipitor -) 20 mg PO HS [facility] Last Admin: 04/23/17 21:17 Dose: 20 mg Cephalexin HCl (Keflex -) 250 mg PO TID [facility] Last Admin: 04/24/17 06:44 Dose: 250 mg Sodium Chloride (Normal Saline -) 1,000 mls @ 50 mls/hr IV ASDIR [facility] Last Admin: 04/23/17 13:42 Dose: Not Given Lorazepam (Ativan Injection -) 1 mg IM Q6H PRN PRN Reason: AGITATION Metoprolol Tartrate (Lopressor -) 25 mg PO TID [facility] Last Admin: 04/24/17 06:44 Dose: 25 mg - Objective Vital Signs: Vital Signs Temperature 36.6 C 04/24/17 10:00 Pulse Rate 75 04/24/17 10:39 Respiratory Rate 18 04/24/17 10:00 Blood Pressure 133/56 04/24/17 10:39 O2 Sat by Pulse Oximetry (%) 99 04/23/17 21:00 Labs: CBC, BMP 04/24/17 06:30 04/24/17 06:30 Problem List - Problems (1) Elevated digoxin level Code(s): R78.89 - FINDING OF OTH SUBSTANCES, NOT NORMALLY FOUND IN BLOOD (2) Dementia Code(s): F03.90 - UNSPECIFIED DEMENTIA WITHOUT BEHAVIORAL DISTURBANCE Qualifiers: Dementia type: unspecified type Dementia behavioral disturbance: without behavioral disturbance Qualified Code(s): F03.90 - Unspecified dementia without behavioral disturbance (3) Atrial fibrillation Code(s): I48.91 - UNSPECIFIED ATRIAL FIBRILLATION Qualifiers: Atrial fibrillation type: chronic (4) Orthostatic dizziness Code(s): R42 - DIZZINESS AND GIDDINESS (5) CKD (chronic kidney disease) stage 3, GFR 30-59 ml/min Code(s): N18.3 - CHRONIC KIDNEY DISEASE, STAGE 3 (MODERATE) (6) HLD (hyperlipidemia) Code(s): E78.5 - HYPERLIPIDEMIA, UNSPECIFIED
--- NOTE | 2017-04-24 13:01 | PN ---
Progress Note (short form) - Note Progress Note: Chief Complaint: afib, mila History of Present Illness: denies cp, sob, palpitations, or presyncope. ambulating in hallways. no cigs Current Medications Apixaban (Eliquis -) 5 mg PO BID [facility] Last Admin: 04/24/17 09:31 Dose: 5 mg Atorvastatin Calcium (Lipitor -) 20 mg PO HS [facility] Last Admin: 04/23/17 21:17 Dose: 20 mg Cephalexin HCl (Keflex -) 250 mg PO TID [facility] Last Admin: 04/24/17 06:44 Dose: 250 mg Sodium Chloride (Normal Saline -) 1,000 mls @ 50 mls/hr IV ASDIR [facility] Last Admin: 04/23/17 13:42 Dose: Not Given Lorazepam (Ativan Injection -) 1 mg IM Q6H PRN PRN Reason: AGITATION Metoprolol Tartrate (Lopressor -) 25 mg PO TID [facility] Last Admin: 04/24/17 06:44 Dose: 25 mg - Objective Vital Signs: Vital Signs - 24 hr 04/23/17 04/23/17 04/24/17 18:00 21:00 05:20 Temperature 98.0 F 98.2 F 98.2 F Pulse Rate 85 85 82 Pulse Rate [ Left side Sitting] Pulse Rate [ Left side Standing] Pulse Rate [ Left side Supine] Respiratory 19 20 20 Rate Blood Pressure 120/55 102/60 119/64 Blood Pressure [Left side Sitting] Blood Pressure [Left side Standing] Blood Pressure [Left side Supine] O2 Sat by Pulse 99 Oximetry (%) 04/24/17 04/24/17 04/24/17 09:00 10:00 10:39 Temperature 98 F Pulse Rate 60 Pulse Rate [ 74 Left side Sitting] Pulse Rate [ 84 Left side Standing] Pulse Rate [ 75 Left side Supine] Respiratory 18 Rate Blood Pressure 108/58 Blood Pressure 129/83 [Left side Sitting] Blood Pressure 135/68 [Left side Standing] Blood Pressure 133/56 [Left side Supine] O2 Sat by Pulse 99 Oximetry (%) Intake & Output 04/22/17 04/23/17 04/24/17 04/25/17 07:59 07:59 07:59 07:59 Intake Total 120 350 600 Output Total 750 450 Balance -630 -100 600 Weight 145 lb 146 lb 9.6 oz 148 lb 9.6 oz Constitutional: Yes: No Distress, Calm Eyes: No: Sclera Icterus HENT: No: Nasal Congestion Cardiovascular: Yes: Pulse Irregular, S1, S2, Other (PMI non diplaced). No: Gallop, Murmur Respiratory: Yes: CTA Bilaterally. No: Accessory Muscle Use, Rales, Wheezes Gastrointestinal: Yes: Normal Bowel Sounds, Soft. No: Tenderness Musculoskeletal: Yes: Other (No kyphosis) Extremities: No: Cold Edema: No Integumentary: No: Jaundice Neurological: Yes: Alert. No: Seizure Psychiatric: No: Agitated Labs: CBC, BMP 04/24/17 06:30 04/24/17 06:30 Laboratory Tests 04/22/17 04/23/17 06:15 09:35 Creatinine 1.4 H Digoxin 1.3306 - ....Imaging EKG: Other (tele: afib HRs 60's-70's. No significant pauses.) Assessment/Plan Echo 03/18: 1. Atrial fibrillation, with HRs ranging from 83-123 bpm (mostly in 90s-110s). 2. The left ventricular size is normal. 3. LA pressure is elevated. 4. Assessment of LVEF is confounded by atrial fibrillation rhythm with very variable R-R intervals. When analyzing beats occurring during average R-R intervals, EF appears to be [id number] reduced, in the range of 45%. Global hypokinesis present. 5. The right ventricle is normal in size and function. 6. Left atrium is severely dilated by volume. 7. The right atrium is mildly enlarged. 8. Trace amount of aortic regurgitation. 9. Moderate mitral regurgitation is present (central jet). Estimated regurgitant volume = 22 cc, ERO 0.15 cm2. 10. Moderate tricuspid regurgitation present. (No systolic flow reversal present in hepatic vein.) 11. Unable to estimate RVSP due to inadequate TR jet spectral doppler profile ( it is at least 35 mmHg). 12. Normal inferior vena cava with normal inspiratory collapse consistent with estimated right atrial pressure of 3 mmHg. 13. There is a trivial pericardial effusion present, consistent with physiologic fluid level. Holter 02/16: Afib, not controlled: average 107, max 145, 12 hours with mean > 100 bpm. 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 afib/bradycardia/dig toxicity - chronic uncontrolled rates with new-onset tachymyopathy. Rate control c/b low sbp's (sbp's typically 100's) and symptomatic orthostatic hypotension. - dig incr'd 0.125 to 0.25 two weeks ago, level toxic as outpt with slow AF in office (HR 33), ? if any sx's from this - lopressor recently incr'd 25 bid to tid, with midodrine added to fludrocortisone 0.1mg qd to augment bp, with persistent SBP 90s-100 in office on DOA - above meds all held here, dig trended down, HRs well controlled (pt agitation/ combative sec to here, may be driving up HR and BP as well) - dig level down to 1.3, HRs now tachy. pt c/o'd frequent sleepiness/fatigue for ? amt of time, ? has been taking dig > 1 yr since prior to switching to ri as cardio. on lopressor as well during that time. ? if fatigue is s.e. to one of these meds. - for now will try lopressor 25 bid, hold digoxin--may need to resume 0.125 mg qd later. - if fails this regimen, will need trial of amio vs AVN ablation/PPM - balance is very poor, and appears to be the major source of falls risk at this time. pt repeatedly declined vestibular therapy eval as outpt. - rec P.T. eval re: falls risk. if risk high, or if pt refuses to use walker, will have to d/w whether they want to prioritize risk of fall with ICH, vs risk of embolic CVA. (impossible to predict which risk is higher, however with CHADS VASC = 3, hence approx 3%/yr risk of stroke, after observing his gait/ balance today, it seems at present his risk of falls is much higher than 3%/ year.) - con't eliquis 5 mg bid for now. (pt has previously deferred Watchman consultation. would not pursue until cognitive status improves significantly-- suspect this will happen when back in home environment)) - 04/24: hr well controlled on lopressor tid (without digoxin), con't current regimen. Can f/u with outpatient cards regarding whether to resume digoxin downt he road. monitor for dizziness, hypotension. cardiomyopathy (mild-mod depressed LV fn, global) with mod mr - Recently with newly depressed LVEF, presumed tachymyopathy. - rate control as doing. - low dose BB as tolerates. low bp will not tolerate MAJOR/ARB - euvolemic, off diuretics. CAD s/p [place] and prior PCI/HL - prior patent mlad and Lcx stent with ?residual rca disease (but no ischemia on subsequent stress testing). last stent 2005. - no need for additional ASA on AC given age, bleeding risk, per recent expert consensus. con't statin (on livalo 2 mg qhs as outpatient) - no anginal sx's. CE's neg. positional light-headedness/orthostatic hypotension/chronic dysequilibrium/ repeated falls: - no recent falls - on midodrine (7.5 tid) and florinef (0.1 qd) at home, both started in past 1- 2 months. both held here. - repeat orthostatics 04/24 negative --> will continue to hold for now. Can f/u with outpatient cards regarding whether to resume as outpatient. CKD: - h/o cystectomy with ileal conduit, mild bilat hydro on recent sonogram - baseline creat around 1.3 - renal fxn stable here confusion: - suspect sundowning in pt with decreased memory evident on routine office visits with me - neuro input appreciated, ? dig effect--though note pt mentation seemed at his baseline when saw me in office 04/20 with peak dig toxic level at that time - CT head reviewed --> no acute pathology
[2017-04-24] MEDS: SODIUM CHLORIDE 1,000 ML IV SCH (14:40)
[2017-04-24] MEDS ORDERED: PT OWN MED DRAWER 7, Y5N ONE (14:41)
--- NOTE | 2017-04-24 16:00 | DS ---
Physical Examination Vital Signs: Vital Signs Temperature 36.6 C 04/24/17 10:00 Pulse Rate 75 04/24/17 10:39 Respiratory Rate 18 04/24/17 10:00 Blood Pressure 133/56 04/24/17 10:39 O2 Sat by Pulse Oximetry (%) 99 04/24/17 09:00 Constitutional: Yes: Well Nourished, No Distress, Calm Cardiovascular: Yes: Pulse Irregular. No: Tachycardia, Gallop, Murmur, Rub Respiratory: Yes: Regular, CTA Bilaterally. No: Rales, Rhonchi, Wheezes Gastrointestinal: Yes: Normal Bowel Sounds, Soft. No: Distention, Tenderness Extremities: Yes: WNL Edema: No Labs: CBC, BMP 04/24/17 06:30 04/24/17 06:30 Discharge Summary Reason For Visit: ELEVATED DIGOXIN LV,DIZZINESS,AFIB,AB LAB TEST Current Active Problems Altered mental status (Acute) Atrial fibrillation (Acute) CKD (chronic kidney disease) stage 3, GFR 30-59 ml/min (Acute) Dementia (Acute) Dizziness (Acute) Elevated digoxin level (Acute) HLD (hyperlipidemia) (Acute) Orthostatic dizziness (Acute) Hospital Course: (1) Elevated digoxin level Code(s): R78.89 - FINDING OF OTH SUBSTANCES, NOT NORMALLY FOUND IN BLOOD (2) Dementia Code(s): F03.90 - UNSPECIFIED DEMENTIA WITHOUT BEHAVIORAL DISTURBANCE Qualifiers: Dementia type: unspecified type Dementia behavioral disturbance: without behavioral disturbance Qualified Code(s): F03.90 - Unspecified dementia without behavioral disturbance (3) Atrial fibrillation Code(s): I48.91 - UNSPECIFIED ATRIAL FIBRILLATION Qualifiers: Atrial fibrillation type: chronic (4) Orthostatic dizziness Code(s): R42 - DIZZINESS AND GIDDINESS (5) CKD (chronic kidney disease) stage 3, GFR 30-59 ml/min Code(s): N18.3 - CHRONIC KIDNEY DISEASE, STAGE 3 (MODERATE) (6) HLD (hyperlipidemia) Code(s): E78.5 - HYPERLIPIDEMIA, UNSPECIFIED Mr Garibay is a pleasant 86 year old male with mild dementia who comes in with orthostatic hypotension and digoxin toxicity. He was admitted to the hospital on telemetry. He was seen by cardiology. His digoxin was discontinued and his metoprolol was increased to tid. His florinef and midodrine was also held. He had an episode of sundowning while here, but this has resolved. He is now stable for discharge home with home PT. 31 minutes spent in preparation of this discharge Condition: Good - Instructions Diet, Activity, Other Instructions: resume previous diet and activity Referrals: Stanford Fay MD [Staff Physician] - Nba Lopes MD [Primary Care Provider] - Disposition: [facility]/HOME HEALTH CARE - Home Medications Comprehensive Discharge Medication List: Ambulatory Orders Pitavastatin Calcium [Livalo] 1 mg PO DAILY 11/02/15 Apixaban [Eliquis -] 5 mg PO BID #60 tablet 04/24/17 Metoprolol Tartrate [Lopressor -] 25 mg PO TID #90 tablet 04/24/17
[2017-04-24 16:22] VITALS: BP 114/60; PULSE 74; TEMP 98.2
--- NOTE | 2017-04-25 11:21 | EKG ---
Test Reason : Blood Pressure : / mmHG Vent. Rate : 049 BPM Atrial Rate : 043 BPM P-R Int : 000 ms QRS Dur : 080 ms QT Int : 394 ms P-R-T Axes : 000 048 053 degrees QTc Int : 355 ms POOR DATA QUALITY, INTERPRETATION MAY BE ADVERSELY AFFECTED ATRIAL FIBRILLATION WITH SLOW VENTRICULAR RESPONSE NONSPECIFIC ST ABNORMALITY ABNORMAL ECG WHEN COMPARED WITH ECG OF 02-NOV-2015 12:46, VENT. RATE HAS DECREASED BY 62 BPM NON-SPECIFIC CHANGE IN ST SEGMENT IN LATERAL LEADS NONSPECIFIC T WAVE ABNORMALITY NOW EVIDENT IN LATERAL LEADS Confirmed by TARYN CAMILO MD ([id number]) on 04/25/2017 11:20:33 AM Referred By: Confirmed By:TARYN CAMILO MD
== END 2017-04-24 18:17 | disposition home health service (06) | DRG 92 ==
LOC: JER 15:03 → JERBED 20:27 → J4W 04-21 03:54 → J8W 04-24 12:31
PROVIDERS: ADMIT Internal Medicine; ATTEND Internal Medicine
DX: G92 Toxic encephalopathy (principal); I42.9 Cardiomyopathy, unspecified; I31.3 Pericardial effusion (noninflammatory); F05 Delirium due to known physiological condition; F03.90 Unspecified dementia, unspecified severity, without behavioral disturbance, psychotic disturbance, mood disturbance, and anxiety; I25.10 Atherosclerotic heart disease of native coronary artery without angina pectoris; E78.5 Hyperlipidemia, unspecified; I25.2 Old myocardial infarction; E53.8 Deficiency of other specified B group vitamins; R42 Dizziness and giddiness; Z79.01 Long term (current) use of anticoagulants; I12.9 Hypertensive chronic kidney disease with stage 1 through stage 4 chronic kidney disease, or unspecified chronic kidney disease; Z85.46 Personal history of malignant neoplasm of prostate; R26.81 Unsteadiness on feet; I35.1 Nonrheumatic aortic (valve) insufficiency; I36.1 Nonrheumatic tricuspid (valve) insufficiency; I48.2 Chronic atrial fibrillation; N18.3 Chronic kidney disease, stage 3 (moderate); I95.1 Orthostatic hypotension; Z98.61 Coronary angioplasty status; T46.0X5A Adverse effect of cardiac-stimulant glycosides and drugs of similar action, initial encounter
CPT/HCPCS: 36415; 70450-TC; 80048; 80053; 80162; 81003; 81015; 82550; 83735; 84100; 84443; 84484; 85025; 93005; 93010; 99284-25

== ENCOUNTER 2018-01-27 18:48 | Inpatient (IN) | payer OTHER, BC ==
[2018-01-27 19:10] VITALS: BMI 20.7
--- NOTE | 2018-01-27 19:13 | PDOC ---
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 When asked as to why patient was brought to the ED. He replied that he does not know why. told EMS he was dehydrated and had a blood glucose of 148. 01/27/18 20:01 contacted, reports that patient had altered mental status since this AM. and that she believes these episodes to be due to dehydration. She notes that he has been weak for the past 1 week, has had brown urine and blood in the stool. She reports that the patient had a fall 4-6 weeks ago and had stitches on the back of the head. She states the patient is DNR but is unsure about DNI. Past History - Past Medical History Allergies/Adverse Reactions: Allergies Allergy/AdvReac Type Severity Reaction Status Date / Time No Known Drug Allergies Allergy Verified 01/27/18 19:08 Home Medications: Ambulatory Orders Apixaban [Eliquis] 5 mg PO BID 01/28/18 Pitavastatin Calcium [Livalo] 2 mg PO HS 01/28/18 Amiodarone HCl [Cordarone -] 200 mg PO DAILY tablet 02/09/18 Metoprolol Tartrate [Lopressor -] 50 mg PO TID tablet 02/09/18 Pantoprazole Sodium [Protonix -] 40 mg PO DAILY #30 tablet.ec 02/09/18 Anemia: No Asthma: No Cancer: Yes (Prostate) Cardiac Disorders: Yes (S/P PA (2000)/ A-Fib) CVA: No COPD: No CHF: No DVT: No Dementia: No Diabetes: No GI Disorders: No Disorders: Yes HTN: No Hypercholesterolemia: Yes Liver Disease: No Seizures: No Thyroid Disease: No - Surgical History Abdominal Surgery: No Appendectomy: Yes Cardiac Surgery: Yes (3x s/p stent placement) Cholecystectomy: No Lung Surgery: No Neurologic Surgery: No Orthopedic Surgery: Yes (S/P Laminectomy 2002) - Immunization History Immunization Up to Date: Yes - Suicide/Smoking/Psychosocial Hx Smoking Status: No Smoking History: Never smoked Have you smoked in the past 12 months: No Number of Cigarettes Smoked Daily: 0 Information on smoking cessation initiated: No Hx Alcohol Use: No Drug/Substance Use Hx: No Substance Use Type: None Hx Substance Use Treatment: No Review of Systems - Review of Systems Able to Perform ROS?: No (AMS) *Physical Exam - Vital Signs Last Vital Signs Temp Pulse Resp BP Pulse Ox 58 L 18 114/74 95 01/27/18 19:08 01/27/18 19:08 01/27/18 19:08 01/27/18 19:08 - Physical Exam Comments: 01/27/18 20:35 GENERAL: Awake, alert, and fully oriented, in no acute distress HEAD: No signs of trauma, normocephalic, atraumatic EYES: EOMI, sclera anicteric, conjunctiva clear ENT: oropharynx clear without exudates. Moist mucosa NECK: Normal ROM, supple LUNGS: No distress, speaks full sentences, decreased breath sounds at the bases HEART: Regular rate and rhythm, normal S1 and S2, no murmurs, rubs or gallops, peripheral pulses normal and equal bilaterally. ABDOMEN: Soft, nontender, normoactive bowel sounds. No guarding, no rebound. No masses, + suprapubic catheter - dark brown urine EXTREMITIES : Normal inspection, Normal range of motion, no edema. No clubbing or cyanosis. NEUROLOGICAL: Cranial nerves II through XII grossly intact. Normal speech, no focal sensorimotor deficits SKIN: Warm, Dry, normal turgor, no rashes or lesions noted Procedures - Chest Tube Right Mid Axillary Line 5th ICS Indication: Hemothorax Anesthesia: 1% Lidocaine Volume(ml): 10 Sterile Draping: Yes Sterile Technique: Yes Tube Drainage(ml): 700 Suction: Yes Curved Clamp: No Tube Sutured to Skin: Yes Complications: No Post Procedure CXR: Yes (Pigtail placed in 7th intercostal ) ED Treatment Course - LABORATORY CBC & Chemistry Diagram: 02/09/18 06:15 02/09/18 06:15 Medical Decision Making - Medical Decision Making PMHX: dementia, prostate cancer s/p surgery and XRT, HTN, HLD, CAD, PA, afib on eliquis, p/w head injury s/p fall. When asked as to why patient was brought to the ED. He replied that he does not know why. told EMS he was dehydrated and had a blood glucose of 148. 01/27/18 20:01 contacted, reports that patient had altered mental status since this AM. and that she believes these episodes to be due to dehydration. She notes that he has been weak for the past 1 week, has had brown urine and blood in the stool. She reports that the patient had a fall 4-6 weeks ago and had stitches on the back of the head. She states the patient is DNR but is unsure about DNI. DDX including but not limited to: PNA vs intracranial bleed vs UTI vs electrolyte abnormality vs ACS W/U: - cbc, cmp, trop, PT/INR, PTT - ua, ucx - EKG - CXR TX: - 2L NS ED Course: 01/27/18 20:35 Patient with A fib with RVR on EKG Given Diltiazem 5 HR at 90s. Patient getting 2L NS 01/27/18 21:10 Daughter requests that digoxin not be given to the patient and that cardiac medications that are to be given, that Dr. Ackerman be contacted in advance. CBC, CMP: unremarkable. Trop: .14 Patient still in A. Fib with RVR Diltiazem [address] Chest: bilateral pleural effusion. 01/27/18 23:39 R sided pigtail catheter placed by this principal technical writer and attending without complications. U: + UTI Levaquin 500mg IV given 01/27/18 23:41 Medicine and ICU contacted ICU: came to see patient, feels Telemetry is appropriate. 01/27/18 23:56 Dr. Colby contacted: will accept patient to Telemetry 01/28/18 02:12 Patient awake attempting stand up. Confused. Haldol 5, Ativan 2 ordered. *DC/Admit/Observation/Transfer Diagnosis at time of Disposition: UTI (urinary tract infection), Sepsis, Altered mental status - Discharge Dispostion [facility]position: [facility] Condition at time of disposition: Stable Decision to Admit order: Yes - Prescriptions - Referrals - Patient Instructions - Post Discharge Activity
[2018-01-27] MEDS ORDERED: SODIUM CHLORIDE 2,000 ML IV SCH (19:15)
[2018-01-27] MEDS ORDERED: dilTIAZem HCL 50 MG/10 ML - 10 ML VIAL IVPUSH ONE ×3 (20:12→21:59)
[2018-01-27] MEDS ORDERED: dilTIAZem HCL 125 MG/25 ML - 25 ML VIAL ONE (20:17)
[2018-01-27 20:22] LABS: BASO % 0.4 % (0-2.0); EOS % 0.2 % (0-4.5); HEMOGLOBIN 14.2 GM/dL (11.7-16.9); LYMPH % 11.5 % (8-40); MCH 30.5 pg (25.7-33.7); MCHC 32.4 g/dl (32.0-35.9); MEAN CELL VOLUME 94.4 fl (80-96); MEAN PLT VOLUME 9.8 fl (7.5-11.1); MONO % 14.7 % (3.8-10.2); NEUT % 73.2 % (42.8-82.8); PLATELET COUNT 150 K/MM3 (134-434); RBC 4.66 M/mm3 (4.00-5.60); RDW 15.8 % (11.9-15.9); WHITE BLOOD COUNT 6.2 K/mm3 (4.0-10.0)
[2018-01-27 20:23] LABS: VENOUS PH 7.32 (7.32-7.42)
[2018-01-27 20:24] LABS: VENOUS PC02 47.9 mmHg (38-52); VENOUS PO2 22.1 mmHg (28-48)
--- NOTE | 2018-01-27 20:25 | PDOC ---
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 Patients states the patient was confused this morning and that this usually happens when he is dehydrated. Patient is DNR but unknown if DNI. Patients blood glucose was reported to be 148. Patient was here in October for a head injury and laceration repair. As per , patient had blood in the stool and brown urine. The patient denies chest pain, shortness of breath, headache and dizziness. Denies fever, chills, nausea, vomit, diarrhea and constipation. Denies dysuria, frequency, urgency and hematuria. Allergies: NKA Past surgical history: None reported. Social history: None reported. - Physicial Exam PE: 01/27/18 21:09 ADULT EXAM GENERAL: Awake, alert, in no acute distress. (+) Hypothermic upon arrival. (+) Confused, but knows his name and that he is at the hospital. EYES: PERRLA, EOMI, sclera anicteric, conjunctiva clear ENT: (+) Bilateral hearing aids in place. nares patent, oropharynx clear without exudates. Moist mucosa NECK: Normal ROM, supple, no lymphadenopathy, JVD, or masses LUNGS: Breath sounds equal, clear to auscultation bilaterally. No wheezes, and no crackles HEART: Regular rate and rhythm, normal S1 and S2, no murmurs, rubs or gallops ABDOMEN: (+) Diffuse abdominal tenderness. (+) Ostomy bag in place in the right lower quadrant. Soft, normoactive bowel sounds. No guarding, no rebound. No masses EXTREMITIES: (+) Pitting edema up to the right thigh. Normal range of motion. No clubbing or cyanosis. No cords, erythema, or tenderness NEUROLOGICAL: Cranial nerves II through XII grossly intact. SKIN: Warm, Dry, normal turgor, no rashes or lesions noted. <Pamela Haider - Last Filed: 01/27/18 21:09> - Resident Resident Name: Hortencia Britt - ED Attending Attestation I have performed the following: I have examined & evaluated the patient, The case was reviewed & discussed with the resident, I agree w/resident's findings & plan - Medical Decision Making 01/27/18 21:05 WBC normal 01/28/18 01:38 Patient Name: GUNNAR KEENE THIS IS A PRELIMINARY REPORT FROM [facility] DATE OF SERVICE: 2018-01-27 21:42:57 IMAGES: [id number] EXAM: CT thorax without IV contrast. Clinical indication: Right lower lobe consolidation. There are no prior studies available for comparison. Technique: Axial unenhanced CT images of the thorax were obtained followed by coronal and sagittal reformats. Finding: There is a moderate to large right pleural effusion and a moderate left pleural effusion. There are bilateral lower lobe dependent areas of atelectasis. In addition, there is an area of consolidation within the anterior right middle lobe which has some crowding of bronchovascular bundles and likely represents some atelectatic changes, but pneumonia cannot be entirely excluded. There is vascular redistribution so she with bilateral symmetric areas of interlobular septal thickening and bilateral symmetric areas of groundglass opacity most consistent with pulmonary edema. The remainder of the pulmonary parenchyma is grossly unremarkable. There is cardiomegaly with coronary artery calcifications. There are no enlarged axillary, hilar, or mediastinal lymph nodes, by size criteria. There is a mildly prominent AP window lymph node/prevascular lymph node measuring 0.8 cm in short axis dimension. There is slight portions of the upper abdomen are within normal limits. There are fairly extensive syndesmophytes fusing most of the thoracic spine through to the L3 level and some ankylosis of the interspinous ligaments suggesting possible ankylosing spondylitis. The remainder the visualized bony structures are unremarkable. Impression: 1. Moderate to large right and moderate left pleural effusions causing compressive atelectatic changes. 2. Underlying pulmonary edema. 3. Area of consolidation within the anterior aspect of the right lower lobe which appears to have some crowding of the bronchovascular bundle suggesting volume loss and likely represents atelectatic changes, but pneumonia cannot be entirely excluded from the images. 4. Cardiomegaly. 5. 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 Clinical indication:Rule out intracranial bleed. No further information is provided. Comparison:None available. Technique: Axial unenhanced CT images from the skull base through the brain were obtained followed by coronal and sagital reformats. Findings: The visualized bony structures are unremarkable. The visualized paranasal sinuses and mastoid air cells are clear. There is no evidence of intra-or extra-axial hemorrhage. The ventricles and basilar cisterns are unremarkable. There is no evidence of intracranial mass, acute infarct, or midline shift. Impression: Negative unenhanced CT of the brain. <Mayra Yu - Last Filed: 01/28/18 01:40>
[2018-01-27 20:34] LABS: INR 2.53 (0.83-1.09); PROTHROMBIN TIME (PATIENT) 30.1 SEC (9.7-13.0)
[2018-01-27 20:36] LABS: ACTIVATED PTT 34.4 SECONDS (25.2-36.5)
[2018-01-27 20:43] LABS: ALBUMIN 3.7 g/dl (3.4-5.0); ALK PHOS 122 U/L (45-117); ANION GAP 11 MMOL/L (8-16); BILIRUBIN,TOTAL 0.9 mg/dL (0.2-1); BLOOD UREA NITROGEN 47 mg/dL (7-18); CALCIUM 8.9 mg/dL (8.5-10.1); CHLORIDE 101 mmol/L (98-107); CO2 24 mmol/L (21-32); GLUCOSE,RANDOM 113 mg/dL (74-106); POTASSIUM 5.2 mmol/L (3.5-5.1); SGOT/AST 14 U/L (15-37); SGPT/ALT 30 U/L (13-61); SODIUM 136 mmol/L (136-145); TOT PROT 7.1 g/dl (6.4-8.2)
[2018-01-27 22:09] LABS: URINE APPEARANCE CLOUDY; URINE BILIRUBIN NEGATIVE (<2.0 mg/dL); URINE COLOR RED; URINE GLUCOSE (UA) NEGATIVE (NEGATIVE); URINE KETONE NEGATIVE (NEGATIVE); URINE LEUK ESTERASE 1+ (NEGATIVE); URINE NITRITE NEGATIVE (NEGATIVE); URINE PROTEIN 3+ (NEGATIVE); URINE UROBILINOGEN NEGATIVE mg/dL (0.2-1.0)
[2018-01-27 22:14] LABS: TRIPLE PHOSPHATE CRYSTAL RARE /hpf (NONE SEEN); URINE BACTERIA RARE /hpf (NONE SEEN); URINE HYALINE CAST 8 /lpf; URINE MUCUS FEW
[2018-01-27] MEDS ORDERED: METOPROLOL TARTRATE 25 MG TABLET (FP) PO ONE (23:59)
[2018-01-28] MEDS ORDERED: METOPROLOL TARTRATE 5 MG/5 ML VIAL IVPUSH ONE (00:15)
--- NOTE | 2018-01-28 00:25 | PN ---
Progress Note (short form) - Note Progress Note: Called by EM physician for ICU admission. Briefly, patient is an 86 year old male with a PMHx of Dementia, Atrial Fibrillation on Eliquis, CAD s/p stent, HTN, HLD, ME, Prostate cancer, OA, squamous cell who was BIBEMS for altered mental status and lethargy since this morning (01/27/18) associated with weakness and confusion. According to patients daughter at bedside, he usually has these episodes when he has a UTI or "dehydrated." When patient presented to the ED, he was found to have A.fib w/ RVR in the 120's -130's and bilateral pleural effusions on CXR and Chest CT, as well as a UTI. A total of 15mg Diltiazem IVP given with successful rate control. A right sided pigtail catheter was placed by ED attending and resident with a total of 700cc of sanguinous drainage. Levaquin 500mg IV was started for UTI. On my evaluation, Patient's BP was 110's/70's, 02 saturation 99% on 2L, temperature 96.7, HR 90s. He is Awake, confused, not oriented to person, place , or time. Heart rate tachycardic w/ irregularly irregular rhythm. 4/6 Holosystolic murmur radiating to the axilla. Decreased breath sounds throughout lung bases bilaterally with Pig tail in place draining sanguinous fluids. Hanson in place. No peripheral edema. Unable to assess neuro examination. Recommended patient be admitted to telemetry for further monitoring as patient does not currently need ICU monitoring. Patient has maintained a saturation of 99% on 2L NC with a stable BP and MAP >65. Patient does not require any pressors or intubation. PCP and raymond mill operator contacted by EM Physician and agree with telemetry monitoring Sandi Burton [id number]
[2018-01-28] MEDS ORDERED: METOPROLOL TARTRATE 5 MG/5 ML VIAL ONE (00:28)
[2018-01-28] MEDS ORDERED: ACETAMINOPHEN 1000 MG/100 ML VIAL (NON FORMULARY) IVPB ONE (00:32)
[2018-01-28] MEDS ORDERED: ACETAMINOPHEN INJECTION 100 ML IVPB ONE (01:15)
[2018-01-28] MEDS ORDERED: HALOPERIDOL LACTATE 5 MG/ML IM ONE (02:11)
[2018-01-28] MEDS ORDERED: HALOPERIDOL LACTATE 5 MG/ML ONE (02:15)
[2018-01-28] MEDS ORDERED: LORazepam 2 MG/ML SDV VIAL ONE (02:16)
[2018-01-28] MEDS ORDERED: SODIUM CHLORIDE 1,000 ML IV SCH ×2 (04:00→08:30)
[2018-01-28] MEDS ORDERED: METOPROLOL TARTRATE 25 MG TABLET (FP) ONE ×2 (06:17→15:19)
[2018-01-28] MEDS: METOPROLOL TARTRATE 25 MG TABLET (FP) PO SCH ×3 (06:50→21:24)
[2018-01-28 07:22] LABS: BASO % 0.6 % (0-2.0); EOS % 0.4 % (0-4.5); HEMOGLOBIN 12.2 GM/dL (11.7-16.9); LYMPH % 9.9 % (8-40); MCH 30.2 pg (25.7-33.7); MCHC 32.2 g/dl (32.0-35.9); MEAN CELL VOLUME 93.7 fl (80-96); MEAN PLT VOLUME 9.5 fl (7.5-11.1); MONO % 13.2 % (3.8-10.2); NEUT % 75.9 % (42.8-82.8); PLATELET COUNT 116 K/MM3 (134-434); RBC 4.06 M/mm3 (4.00-5.60); WHITE BLOOD COUNT 5.5 K/mm3 (4.0-10.0)
--- NOTE | 2018-01-28 07:49 | HP ---
Admitting History and Physical - Primary Care Physician PCP: Nba Lopes - Admission Chief Complaint: Altered Mental Status History of Present Illness: 86 yrs old man poor historian BIB family for altered mental status patient has multiple co morbidities H/O Dementia, Chronic Atrial Fibrillation rate controlled on Eliquis, CAD s/p stent, HTN, HLD, Prostate cancer s/p RT and Ileal Conduit yeras ago on suprapubic nephrostomy recurrent UTI,, as per family patient was [facility] yesterday this morning developed lethargy confusion and disorientation so 911 eas called brought him for evaluation in the ED w/u shows A.fib w/ RVR in the 120's-130's and bilateral pleural effusions on CXR and Chest CT, as well as a UTI, recived total of 15mg Diltiazem IVP given with successful rate control. A right sided pigtail catheter was placed by ED attending and resident with a total of 700cc of sanguinous drainage. Levaquin 500mg IV was started for UTI. presented to ICU for hospitalization but ICU team decided to manage on telemonitor. Over night remained rate controlled developed Hypothermia at the time of examination. 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) Infectious Disease: Yes: Other (Chronic bacteruria/pyuria with urostomy) Musculoskeletal: Yes: Osteoarthritis (DISH syndrome) Dermatology: Yes: Squamous Cell (Right pinna scalp) - Past Surgical History Past Surgical History: Yes: Appendectomy, Ileal Conduit (Urostomy), Stent (See above) - Smoking History Smoking history: Never smoked Have you smoked in the past 12 months: No Aproximately how many cigarettes per day: 0 - Alcohol/Substance Use Hx Alcohol Use: No History of Substance Use: reports: None - Social History ADL: Independent History of Recent Travel: No Home Medications - Allergies Allergies/Adverse Reactions: Allergies Allergy/AdvReac Type Severity Reaction Status Date / Time No Known Drug Allergies Allergy Verified 01/27/18 19:08 - Home Medications Home Medications: Ambulatory Orders Apixaban [Eliquis] 5 mg PO BID 01/28/18 Metoprolol Tartrate 25 mg PO BID 01/28/18 Pitavastatin Calcium [Livalo] 2 mg PO HS 01/28/18 Family Disease History - Family Disease History Family Disease History: Other: Sister (diverticulitis), Son (osteoarthritis) Review of Systems Unable to obtain ROS, reason: Due to agittaion Physical Examination Vital Signs: Vital Signs Temperature 96.0 F L 01/28/18 06:52 Pulse Rate 110 H 01/28/18 06:52 Respiratory Rate 18 01/28/18 06:52 Blood Pressure 88/62 L 01/28/18 06:52 O2 Sat by Pulse Oximetry (%) 100 01/28/18 06:52 Elderly man confused and sleepy on warming blanket HEENT: Mm moist anemia NECK: No JVd No Bruit CHEST: Decrese AE at bases Rt Chest tube CVS: S1S2 Irr ABD; No dstention non tender EXT: Trace edemma feet, Pulses + GROUNDS AND NURSERY SPECIALIST: Drowsy sleepy , will re evaluate once more alert Imaging - Results X-ray: Report Reviewed (Pleural effusion) Cat Scan: Report Reviewed (B/L Effusion RT > Left Rt ML infiltrates) EKG: Report Reviewed (Afib with RVR [address] T chnages QTC 489) Problem List - Problems (1) Altered mental status Assessment/Plan: Due to Metabolic encephalopathy secondary too hypoxia, uremia and sepsis CT haed no acute chnages Code(s): R41.82 - ALTERED MENTAL STATUS, UNSPECIFIED (2) Acute respiratory failure with hypoxia Assessment/Plan: Due to B/L Pleural effusion s/p chest tube R/O Pneumonia/ CHF will cont O2 inhalation, add IV Vancomycine, Pulmonary, ID and Cardiology consult Code(s): J96.01 - ACUTE RESPIRATORY FAILURE WITH HYPOXIA (3) Sepsis Code(s): A41.9 - SEPSIS, UNSPECIFIED ORGANISM (4) UTI (urinary tract infection) Code(s): N39.0 - URINARY TRACT INFECTION, SITE NOT SPECIFIED Qualifiers: (5) Acute renal failure Code(s): N17.9 - ACUTE KIDNEY FAILURE, UNSPECIFIED Qualifiers: Acute renal failure type: unspecified Qualified Code(s): N17.9 - Acute kidney failure, unspecified (6) Atrial fibrillation Assessment/Plan: On AC present with RVR will cont Metoprolol ECHO serial CE, Cardiology consult Code(s): I48.91 - UNSPECIFIED ATRIAL FIBRILLATION Qualifiers: Atrial fibrillation type: chronic Qualified Code(s): I48.2 - Chronic atrial fibrillation (7) Elevated troponin I level Assessment/Plan: H/O CAD s/p PCI elevated trop probaly Demand Ischemia cont B Blockers statin and serial CE Code(s): R74.8 - ABNORMAL LEVELS OF OTHER SERUM ENZYMES (8) CHF exacerbation Assessment/Plan: Due to afib with RVR F/U ECHO consider Lasix once BP is stable Code(s): I50.9 - HEART FAILURE, UNSPECIFIED (9) CKD (chronic kidney disease) stage 3, GFR 30-59 ml/min Assessment/Plan: Base line CKD stage 3 present with worsening functions Creat 2.0 Code(s): N18.3 - CHRONIC KIDNEY DISEASE, STAGE 3 (MODERATE) (10) Pleural effusion Assessment/Plan: B/L S/p Rt chest tube hemmorhagic will f/u cytology culture and cell count. Code(s): J90 - PLEURAL EFFUSION, NOT ELSEWHERE CLASSIFIED (11) Pneumonia Assessment/Plan: Ct chest shows Rt ML Pneumonia will cont Current abx ID consult F/U Cultures Code(s): J18.9 - PNEUMONIA, UNSPECIFIED ORGANISM
[2018-01-28 07:58] LABS: ALBUMIN 2.9 g/dl (3.4-5.0); ALK PHOS 94 U/L (45-117); ANION GAP 9 MMOL/L (8-16); BILIRUBIN,TOTAL 0.7 mg/dL (0.2-1); BLOOD UREA NITROGEN 45 mg/dL (7-18); CHLORIDE 108 mmol/L (98-107); CO2 21 mmol/L (21-32); CREATININE 1.7 mg/dL (0.55-1.3); GLUCOSE,RANDOM 74 mg/dL (74-106); POTASSIUM 4.8 mmol/L (3.5-5.1); SGOT/AST 12 U/L (15-37); SGPT/ALT 23 U/L (13-61); SODIUM 138 mmol/L (136-145); TOT PROT 5.4 g/dl (6.4-8.2)
[2018-01-28] MEDS ORDERED: SODIUM CHLORIDE 1,000 ML IV STA (08:21)
[2018-01-28] MEDS ORDERED: VANCOMYCIN 1 GRAM (PRE-DOCKED) 1,000 MG/250 ML BAG IVPB ONE ×2 (09:00→09:41)
--- NOTE | 2018-01-28 09:45 | EKG ---
Test Reason : Blood Pressure : / mmHG Vent. Rate : 135 BPM Atrial Rate : 170 BPM P-R Int : 000 ms QRS Dur : 084 ms QT Int : 326 ms P-R-T Axes : 000 028 063 degrees QTc Int : 489 ms ATRIAL FIBRILLATION WITH RAPID VENTRICULAR RESPONSE NONSPECIFIC T WAVE ABNORMALITY ABNORMAL ECG WHEN COMPARED WITH ECG OF 21-APR-2017 13:14, VENT. RATE HAS INCREASED Confirmed by SAM SANCHES MD [id number]) on 01/28/2018 9:44:35 AM Referred By: Confirmed By:SAM SANCHES MD
--- NOTE | 2018-01-28 09:57 | CONSULT ---
Consultation: REQUESTING PROVIDER: Dr. Judge CONSULT REQUEST: We have been asked to medically evaluate this patient for Pulmonology Evaluation. HISTORY OF PRESENT ILLNESS: 87 yo Male with PMH Dimentia, A-fib on Eliquis, CAD s/p stent, HTN, HLD, Prostate CA admitted for altered mental status for one day. Pt not responsive to questioning so history taken from chart. As per the family, he was at baseline until yesterday morning, but became altered. has also noticed dark urine and blood in his stool. Pt also had a fall 4-6 weeks ago. REVIEW OF SYSTEMS: Unable to Obtain PHYSICAL EXAMINATION Vital Signs - 24 hr 01/27/18 01/27/18 01/27/18 19:08 19:27 19:29 Temperature 95.8 F L 95.8 F L Pulse Rate 58 L Pulse Rate [ 124 H Left Apical] Pulse Rate [ Right Brachial] Respiratory 18 16 Rate Blood Pressure 114/74 Blood Pressure 114/72 [Right Arm] O2 Sat by Pulse 95 98 Oximetry (%) 01/27/18 01/28/18 01/28/18 22:24 00:41 06:52 Temperature 96.0 F L Pulse Rate Pulse Rate [ Left Apical] Pulse Rate [ 110 H Right Brachial] Respiratory 18 Rate Blood Pressure 107/85 Blood Pressure 88/62 L [Right Arm] O2 Sat by Pulse 99 100 Oximetry (%) 01/28/18 09:20 Temperature 96.7 F L Pulse Rate Pulse Rate [ Left Apical] Pulse Rate [ Right Brachial] Respiratory Rate Blood Pressure Blood Pressure [Right Arm] O2 Sat by Pulse Oximetry (%) GENERAL: Responsive to sternal rub but not to questioning HEAD: Normocephalic, atraumatic. EYES: PERRL, no scleral icterus EARS, NOSE, THROAT: oropharynx clear without exudates. Dry mucus membranes NECK: supple without lymphadenopathy LUNGS: Diffuse bibasilar crackles HEART: Irregularly irregular, tachycardic ABDOMEN: Soft, nontender to palpation, normoactive bowel sounds EXTREMITIES: 2+ pulses, warm, well-perfused. No peripheral edema. SKIN: Warm, dry, no rashes or lesions noted Laboratory Results - last 24 hr 01/27/18 01/27/18 01/27/18 19:07 20:10 20:10 WBC 6.2 RBC 4.66 Hgb 14.2 Hct 44.0 MCV 94.4 MCH 30.5 MCHC 32.4 RDW 15.8 Plt Count 150 MPV 9.8 D Absolute Neuts (auto) 4.5 Neutrophils % 73.2 Lymphocytes % 11.5 D Monocytes % 14.7 H Eosinophils % 0.2 D Basophils % 0.4 Nucleated RBC % 0 PT with INR 30.10 H INR 2.53 H PTT (Actin FS) 34.4 VBG pH POC VBG pCO2 POC VBG pO2 Mixed VBG HCO3 Sodium Potassium Chloride Carbon Dioxide Anion Gap BUN Creatinine Creat Clearance w eGFR POC Glucometer [phone] Random Glucose Lactic Acid Calcium Total Bilirubin AST ALT Alkaline Phosphatase Creatine Kinase Creatine Kinase Index CK-MB (CK-2) Troponin I B-Natriuretic Peptide Total Protein Albumin Urine Color Urine Appearance Urine pH Ur Specific [place] Urine Protein Urine Glucose (UA) Urine Ketones Urine Blood Urine Nitrite Urine Bilirubin Urine Urobilinogen Ur Leukocyte Esterase Urine WBC (Auto) Urine RBC (Auto) Triple Phos Crystals Urine Bacteria Hyaline Casts Urine Mucus 01/27/18 01/27/18 01/27/18 20:10 20:10 20:10 WBC RBC Hgb Hct MCV MCH MCHC RDW Plt Count MPV Absolute Neuts (auto) Neutrophils % Lymphocytes % Monocytes % Eosinophils % Basophils % Nucleated RBC % PT with INR INR PTT (Actin FS) VBG pH 7.32 POC VBG pCO2 47.9 POC VBG pO2 22.1 L D Mixed VBG HCO3 24.4 Sodium 136 Potassium 5.2 H Chloride 101 Carbon Dioxide 24 Anion Gap 11 BUN 47 H Creatinine 2.0 H Creat Clearance w eGFR 31.62 POC Glucometer Random Glucose 113 H Lactic Acid Calcium 8.9 Total Bilirubin 0.9 AST 14 L ALT 30 Alkaline Phosphatase 122 H Creatine Kinase Creatine Kinase Index CK-MB (CK-2) Troponin I 0.16 H B-Natriuretic Peptide Total Protein 7.1 Albumin 3.7 Urine Color Urine Appearance Urine pH Ur Specific [place] Urine Protein Urine Glucose (UA) Urine Ketones Urine Blood Urine Nitrite Urine Bilirubin Urine Urobilinogen Ur Leukocyte Esterase Urine WBC (Auto) Urine RBC (Auto) Triple Phos Crystals Urine Bacteria Hyaline Casts Urine Mucus 01/27/18 01/27/18 01/27/18 21:00 21:10 21:58 WBC RBC Hgb Hct MCV MCH MCHC RDW Plt Count MPV Absolute Neuts (auto) Neutrophils % Lymphocytes % Monocytes % Eosinophils % Basophils % Nucleated RBC % PT with INR INR PTT (Actin FS) VBG pH POC VBG pCO2 POC VBG pO2 Mixed VBG HCO3 Sodium Potassium Chloride Carbon Dioxide Anion Gap BUN Creatinine Creat Clearance w eGFR POC Glucometer Random Glucose Lactic Acid 2.8 H* Calcium Total Bilirubin AST ALT Alkaline Phosphatase Creatine Kinase Creatine Kinase Index CK-MB (CK-2) Troponin I B-Natriuretic Peptide 40047.8 H Total Protein Albumin Urine Color Red Urine Appearance Cloudy Urine pH 8.0 Ur Specific [place] 1.017 Urine Protein 3+ H Urine Glucose (UA) Negative Urine Ketones Negative Urine Blood 2+ H Urine Nitrite Negative Urine Bilirubin Negative Urine Urobilinogen Negative Ur Leukocyte Esterase 1+ H Urine WBC (Auto) 122 Urine RBC (Auto) 429 Triple Phos Crystals Rare Urine Bacteria Rare Hyaline Casts 8 Urine Mucus Few 01/28/18 01/28/18 01/28/18 01:09 03:31 03:40 WBC RBC Hgb Hct MCV MCH MCHC RDW Plt Count MPV Absolute Neuts (auto) Neutrophils % Lymphocytes % Monocytes % Eosinophils % Basophils % Nucleated RBC % PT with INR INR PTT (Actin FS) VBG pH POC VBG pCO2 POC VBG pO2 Mixed VBG HCO3 Sodium Potassium Chloride Carbon Dioxide Anion Gap BUN Creatinine Creat Clearance w eGFR POC Glucometer [phone] Random Glucose Lactic Acid 1.5 Calcium Total Bilirubin AST ALT Alkaline Phosphatase Creatine Kinase 216 Creatine Kinase Index 7.5 H* CK-MB (CK-2) 16.4 H Troponin I 0.17 H B-Natriuretic Peptide Total Protein Albumin Urine Color Urine Appearance Urine pH Ur Specific [place] Urine Protein Urine Glucose (UA) Urine Ketones Urine Blood Urine Nitrite Urine Bilirubin Urine Urobilinogen Ur Leukocyte Esterase Urine WBC (Auto) Urine RBC (Auto) Triple Phos Crystals Urine Bacteria Hyaline Casts Urine Mucus 01/28/18 01/28/18 06:55 06:55 WBC 5.5 RBC 4.06 Hgb 12.2 Hct 38.0 MCV 93.7 MCH 30.2 MCHC 32.2 RDW 15.0 Plt Count 116 L D MPV 9.5 Absolute Neuts (auto) 4.2 Neutrophils % 75.9 Lymphocytes % 9.9 Monocytes % 13.2 H Eosinophils % 0.4 D Basophils % 0.6 Nucleated RBC % 0 PT with INR INR PTT (Actin FS) VBG pH POC VBG pCO2 POC VBG pO2 Mixed VBG HCO3 Sodium 138 Potassium 4.8 Chloride 108 H Carbon Dioxide 21 Anion Gap 9 BUN 45 H Creatinine 1.7 H Creat Clearance w eGFR 38.14 POC Glucometer Random Glucose 74 Lactic Acid Calcium 8.0 L Total Bilirubin 0.7 AST 12 L ALT 23 Alkaline Phosphatase 94 Creatine Kinase Creatine Kinase Index CK-MB (CK-2) Troponin I B-Natriuretic Peptide Total Protein 5.4 L Albumin 2.9 L Urine Color Urine Appearance Urine pH Ur Specific [place] Urine Protein Urine Glucose (UA) Urine Ketones Urine Blood Urine Nitrite Urine Bilirubin Urine Urobilinogen Ur Leukocyte Esterase Urine WBC (Auto) Urine RBC (Auto) Triple Phos Crystals Urine Bacteria Hyaline Casts Urine Mucus Active Medications Generic Name Dose Route Start Last Admin Trade Name Freq PRN Reason Stop Dose Admin Apixaban 5 mg 01/28/18 10:00 Eliquis - PO BID ROSALIND Atorvastatin Calcium 10 mg 01/28/18 22:00 Lipitor - PO HS ROSALIND Vancomycin HCl 1,000 mg in 250 mls @ 166.667 mls/hr 01/28/18 09:00 Vancomycin (Pre-Docked) IVPB 01/28/18 10:29 ONCE ONE Protocol Sodium Chloride 1,000 mls @ 100 mls/hr 01/28/18 08:30 Normal Saline - IV ASDIR ROSALIND Sodium Chloride 1,000 mls @ 500 mls/hr 01/28/18 08:21 01/28/18 09:34 Normal Saline - IV 01/28/18 10:20 500 mls/hr ASDIR STA Administration Ceftriaxone Sodium 2 gm in 50 mls @ 100 mls/hr 01/28/18 10:00 Ceftriaxone 2 Gm-D5w Bag IVPB DAILY [facility] Protocol Metoprolol Tartrate 25 mg 01/28/18 06:00 01/28/18 06:50 Lopressor - PO Not Given TID ROSALIND Pantoprazole Sodium 40 mg 01/28/18 10:00 Protonix Iv IVPUSH DAILY [facility] ASSESSMENT/PLAN: 87 yo Male with PMH Dimentia, A-fib on Eliquis, CAD s/p stent, HTN, HLD, Mild systolic CHF, Prostate CA admitted for Altered mental status and agitation Altered Mental Status -Possibly secondary to dehydration vs RML Community Acquired Pneumonia vs UTI ( less likely) -possible RML infiltrate noted on Chest CT -ID Consult appreciated -Rocephin 2 gm IV Daily -Blood/Urine C/s B/l Effusions -CXR and CT chest noted -right pigtail placed in ED -send fluid for analysis, cultures, gram stain, cell count -BNP noted [id number] -Repeat CXR in AM A-fib RVR -Given total 15 mg Diltiazem in ED -rate currently controlled in low 100s -Troponemia, likely demand due to Tachycardia -Trend troponins -Cardiology consult noted HTN -Hold Metoprolol for now with low b.p, resume as tolerated HLD -Pitavastatin 2 mg PO HS DVT Prophylaxis -On Eliquis as above FEN -Fluids: NS @ 100 cc/hr -Electrolytes: Monitor and replete as needed -Nutrition: Cholesterol controlled diet Dispo: We will continue to follow the patient. Thank you for this consultative opportunity. <Hardik Guzman - Last Filed: 01/28/18 14:34> Consultation: REQUESTING PROVIDER: CONSULT REQUEST: We have been asked to medically evaluate this patient for ( specify). HISTORY OF PRESENT ILLNESS: REVIEW OF SYSTEMS: CONSTITUTIONAL: Absent: fever, chills, diaphoresis, generalized weakness, malaise, loss of appetite, weight change HEENT: Absent: rhinorrhea, nasal congestion, throat pain, throat swelling, difficulty swallowing, mouth swelling, ear pain, eye pain, visual changes CARDIOVASCULAR: Absent: chest pain, syncope, palpitations, irregular heart rate, lightheadedness , peripheral edema RESPIRATORY: Absent: cough, shortness of breath, dyspnea with exertion, orthopnea, wheezing, stridor, hemoptysis GASTROINTESTINAL: Absent: abdominal pain, abdominal distension, nausea, vomiting, diarrhea, constipation, melena, hematochezia GENITOURINARY: Absent: dysuria, frequency, urgency, hesitancy, hematuria, flank pain, genital pain MUSCULOSKELETAL: Absent: myalgia, arthralgia, joint swelling, back pain, neck pain SKIN: Absent: rash, itching, pallor HEMATOLOGIC/IMMUNOLOGIC: Absent: easy bleeding, easy bruising, lymphadenopathy, frequent infections ENDOCRINE: Absent: unexplained weight gain, unexplained weight loss, heat intolerance, cold intolerance NEUROLOGIC: Absent: headache, focal weakness or paresthesias, dizziness, unsteady gait, seizure, mental status changes, bladder or bowel incontinence PSYCHIATRIC: Absent: anxiety, depression, suicidal or homicidal ideation, hallucinations. PHYSICAL EXAMINATION Vital Signs - 24 hr 01/27/18 01/27/18 01/27/18 19:08 19:27 19:29 Temperature 95.8 F L 95.8 F L Pulse Rate 58 L Pulse Rate [ 124 H Left Apical] Pulse Rate [ Right Brachial] Respiratory 18 16 Rate Blood Pressure 114/74 Blood Pressure 114/72 [Right Arm] O2 Sat by Pulse 95 98 Oximetry (%) 01/27/18 01/28/18 01/28/18 22:24 00:41 06:52 Temperature 96.0 F L Pulse Rate Pulse Rate [ Left Apical] Pulse Rate [ 110 H Right Brachial] Respiratory 18 Rate Blood Pressure 107/85 Blood Pressure 88/62 L [Right Arm] O2 Sat by Pulse 99 100 Oximetry (%) 01/28/18 01/28/18 09:20 11:41 Temperature 96.7 F L 96.5 F L Pulse Rate Pulse Rate [ Left Apical] Pulse Rate [ Right Brachial] Respiratory Rate Blood Pressure Blood Pressure [Right Arm] O2 Sat by Pulse Oximetry (%) GENERAL: Awake, alert, and fully oriented, in no acute distress. HEAD: Normal with no signs of trauma. EYES: Pupils equal, round and reactive to light, extraocular movements intact, sclera anicteric, conjunctiva clear. No lid lag. EARS, NOSE, THROAT: Ears normal, nares patent, oropharynx clear without exudates. Moist mucous membranes. NECK: Normal range of motion, supple without lymphadenopathy, JVD, or masses. LUNGS: Breath sounds equal, clear to auscultation bilaterally. No wheezes, and no crackles. No accessory muscle use. HEART: Regular rate and rhythm, normal S1 and S2 without murmur, rub or gallop. ABDOMEN: Soft, nontender, not distended, normoactive bowel sounds, no guarding, no rebound, no masses. No hepatomegaly or splenomegaly. MUSCULOSKELETAL: Normal range of motion at all joints. No bony deformities or tenderness. No CVA tenderness. UPPER EXTREMITIES: 2+ pulses, warm, well-perfused. No cyanosis. No clubbing. Cap refill <2 seconds. No peripheral edema. LOWER EXTREMITIES: 2+ pulses, warm, well-perfused. No calf tenderness. No peripheral edema. NEUROLOGICAL: Cranial nerves II-XII intact. Normal speech. Normal gait. PSYCHIATRIC: Cooperative. Good eye contact. Appropriate mood and affect. SKIN: Warm, dry, normal turgor, no rashes or lesions noted. Laboratory Results - last 24 hr 01/27/18 01/27/18 01/27/18 19:07 20:10 20:10 WBC 6.2 RBC 4.66 Hgb 14.2 Hct 44.0 MCV 94.4 MCH 30.5 MCHC 32.4 RDW 15.8 Plt Count 150 MPV 9.8 D Absolute Neuts (auto) 4.5 Neutrophils % 73.2 Lymphocytes % 11.5 D Monocytes % 14.7 H Eosinophils % 0.2 D Basophils % 0.4 Nucleated RBC % 0 PT with INR 30.10 H INR 2.53 H PTT (Actin FS) 34.4 VBG pH POC VBG pCO2 POC VBG pO2 Mixed VBG HCO3 Sodium Potassium Chloride Carbon Dioxide Anion Gap BUN Creatinine Creat Clearance w eGFR POC Glucometer 148.11036 Random Glucose Lactic Acid Calcium Total Bilirubin AST ALT Alkaline Phosphatase Creatine Kinase Creatine Kinase Index CK-MB (CK-2) Troponin I B-Natriuretic Peptide Total Protein Albumin Urine Color Urine Appearance Urine pH Ur Specific [place] Urine Protein Urine Glucose (UA) Urine Ketones Urine Blood Urine Nitrite Urine Bilirubin Urine Urobilinogen Ur Leukocyte Esterase Urine WBC (Auto) Urine RBC (Auto) Triple Phos Crystals Urine Bacteria Hyaline Casts Urine Mucus Fluid Other Cells Pleural Fluid Source Pleural Color Pleural Appearance Pleural WBC Pleural RBC Pleural Neutrophils Pleural Lymphocytes Pleural Macrophages 01/27/18 01/27/18 01/27/18 20:10 20:10 20:10 WBC RBC Hgb Hct MCV MCH MCHC RDW Plt Count MPV Absolute Neuts (auto) Neutrophils % Lymphocytes % Monocytes % Eosinophils % Basophils % Nucleated RBC % PT with INR INR PTT (Actin FS) VBG pH 7.32 POC VBG pCO2 47.9 POC VBG pO2 22.1 L D Mixed VBG HCO3 24.4 Sodium 136 Potassium 5.2 H Chloride 101 Carbon Dioxide 24 Anion Gap 11 BUN 47 H Creatinine 2.0 H Creat Clearance w eGFR 31.62 POC Glucometer Random Glucose 113 H Lactic Acid Calcium 8.9 Total Bilirubin 0.9 AST 14 L ALT 30 Alkaline Phosphatase 122 H Creatine Kinase Creatine Kinase Index CK-MB (CK-2) Troponin I 0.16 H B-Natriuretic Peptide Total Protein 7.1 Albumin 3.7 Urine Color Urine Appearance Urine pH Ur Specific [place] Urine Protein Urine Glucose (UA) Urine Ketones Urine Blood Urine Nitrite Urine Bilirubin Urine Urobilinogen Ur Leukocyte Esterase Urine WBC (Auto) Urine RBC (Auto) Triple Phos Crystals Urine Bacteria Hyaline Casts Urine Mucus Fluid Other Cells Pleural Fluid Source Pleural Color Pleural Appearance Pleural WBC Pleural RBC Pleural Neutrophils Pleural Lymphocytes Pleural Macrophages 01/27/18 01/27/18 01/27/18 21:00 21:10 21:58 WBC RBC Hgb Hct MCV MCH MCHC RDW Plt Count MPV Absolute Neuts (auto) Neutrophils % Lymphocytes % Monocytes % Eosinophils % Basophils % Nucleated RBC % PT with INR INR PTT (Actin FS) VBG pH POC VBG pCO2 POC VBG pO2 Mixed VBG HCO3 Sodium Potassium Chloride Carbon Dioxide Anion Gap BUN Creatinine Creat Clearance w eGFR POC Glucometer Random Glucose Lactic Acid 2.8 H* Calcium Total Bilirubin AST ALT Alkaline Phosphatase Creatine Kinase Creatine Kinase Index CK-MB (CK-2) Troponin I B-Natriuretic Peptide 76844.8 H Total Protein Albumin Urine Color Red Urine Appearance Cloudy Urine pH 8.0 Ur Specific [place] 1.017 Urine Protein 3+ H Urine Glucose (UA) Negative Urine Ketones Negative Urine Blood 2+ H Urine Nitrite Negative Urine Bilirubin Negative Urine Urobilinogen Negative Ur Leukocyte Esterase 1+ H Urine WBC (Auto) 122 Urine RBC (Auto) 429 Triple Phos Crystals Rare Urine Bacteria Rare Hyaline Casts 8 Urine Mucus Few Fluid Other Cells Pleural Fluid Source Pleural Color Pleural Appearance Pleural WBC Pleural RBC Pleural Neutrophils Pleural Lymphocytes Pleural Macrophages 01/28/18 01/28/18 01/28/18 01:09 03:31 03:40 WBC RBC Hgb Hct MCV MCH MCHC RDW Plt Count MPV Absolute Neuts (auto) Neutrophils % Lymphocytes % Monocytes % Eosinophils % Basophils % Nucleated RBC % PT with INR INR PTT (Actin FS) VBG pH POC VBG pCO2 POC VBG pO2 Mixed VBG HCO3 Sodium Potassium Chloride Carbon Dioxide Anion Gap BUN Creatinine Creat Clearance w eGFR POC Glucometer [phone] Random Glucose Lactic Acid 1.5 Calcium Total Bilirubin AST ALT Alkaline Phosphatase Creatine Kinase 216 Creatine Kinase Index 7.5 H* CK-MB (CK-2) 16.4 H Troponin I 0.17 H B-Natriuretic Peptide Total Protein Albumin Urine Color Urine Appearance Urine pH Ur Specific [place] Urine Protein Urine Glucose (UA) Urine Ketones Urine Blood Urine Nitrite Urine Bilirubin Urine Urobilinogen Ur Leukocyte Esterase Urine WBC (Auto) Urine RBC (Auto) Triple Phos Crystals Urine Bacteria Hyaline Casts Urine Mucus Fluid Other Cells Pleural Fluid Source Pleural Color Pleural Appearance Pleural WBC Pleural RBC Pleural Neutrophils Pleural Lymphocytes Pleural Macrophages 01/28/18 01/28/18 01/28/18 06:55 06:55 09:15 WBC 5.5 RBC 4.06 Hgb 12.2 Hct 38.0 MCV 93.7 MCH 30.2 MCHC 32.2 RDW 15.0 Plt Count 116 L D MPV 9.5 Absolute Neuts (auto) 4.2 Neutrophils % 75.9 Lymphocytes % 9.9 Monocytes % 13.2 H Eosinophils % 0.4 D Basophils % 0.6 Nucleated RBC % 0 PT with INR INR PTT (Actin FS) VBG pH POC VBG pCO2 POC VBG pO2 Mixed VBG HCO3 Sodium 138 Potassium 4.8 Chloride 108 H Carbon Dioxide 21 Anion Gap 9 BUN 45 H Creatinine 1.7 H Creat Clearance w eGFR 38.14 POC Glucometer Random Glucose 74 Lactic Acid Calcium 8.0 L Total Bilirubin 0.7 AST 12 L ALT 23 Alkaline Phosphatase 94 Creatine Kinase Creatine Kinase Index CK-MB (CK-2) Troponin I 0.21 H B-Natriuretic Peptide Total Protein 5.4 L Albumin 2.9 L Urine Color Urine Appearance Urine pH Ur Specific [place] Urine Protein Urine Glucose (UA) Urine Ketones Urine Blood Urine Nitrite Urine Bilirubin Urine Urobilinogen Ur Leukocyte Esterase Urine WBC (Auto) Urine RBC (Auto) Triple Phos Crystals Urine Bacteria Hyaline Casts Urine Mucus Fluid Other Cells Pleural Fluid Source Pleural Color Pleural Appearance Pleural WBC Pleural RBC Pleural Neutrophils Pleural Lymphocytes Pleural Macrophages 01/28/18 11:00 WBC RBC Hgb Hct MCV MCH MCHC RDW Plt Count MPV Absolute Neuts (auto) Neutrophils % Lymphocytes % Monocytes % Eosinophils % Basophils % Nucleated RBC % PT with INR INR PTT (Actin FS) VBG pH POC VBG pCO2 POC VBG pO2 Mixed VBG HCO3 Sodium Potassium Chloride Carbon Dioxide Anion Gap BUN Creatinine Creat Clearance w eGFR POC Glucometer Random Glucose Lactic Acid Calcium Total Bilirubin AST ALT Alkaline Phosphatase Creatine Kinase Creatine Kinase Index CK-MB (CK-2) Troponin I B-Natriuretic Peptide Total Protein Albumin Urine Color Urine Appearance Urine pH Ur Specific [place] Urine Protein Urine Glucose (UA) Urine Ketones Urine Blood Urine Nitrite Urine Bilirubin Urine Urobilinogen Ur Leukocyte Esterase Urine WBC (Auto) Urine RBC (Auto) Triple Phos Crystals Urine Bacteria Hyaline Casts Urine Mucus Fluid Other Cells Pleural Fluid Source Pleural Pleural Color Yellow Pleural Appearance Bloody Pleural WBC 16 Pleural RBC 2936 Pleural Neutrophils 40 Pleural Lymphocytes 25 Pleural Macrophages 20 Active Medications Generic Name Dose Route Start Last Admin Trade Name Margarette PRN Reason Stop Dose Admin Apixaban 5 mg 01/28/18 10:00 01/28/18 14:08 Eliquis - PO 5 mg BID ROSALIND Administration Atorvastatin Calcium 10 mg 01/28/18 22:00 Lipitor - PO HS ROSALIND Ceftriaxone Sodium 2 gm/ 100 mls @ 200 mls/hr 01/28/18 10:00 01/28/18 13:29 Dextrose IVPB 200 mls/hr DAILY ROSALIND Administration Protocol Sodium Chloride 1,000 mls @ 70 mls/hr 01/28/18 11:56 01/28/18 14:09 Normal Saline - IV 70 mls/hr ASDIR ROSALIND Administration Metoprolol Tartrate 25 mg 01/28/18 06:00 01/28/18 14:08 Lopressor - PO 25 mg TID ROSALIND Administration Pantoprazole Sodium 40 mg 01/28/18 10:00 01/28/18 11:00 Protonix Iv IVPUSH 40 mg DAILY ROSALIND Administration ASSESSMENT/PLAN: Dispo: We will continue to follow the patient. Thank you for this consultative opportunity. Patient seen and examined with the resident. Agree with findings in the [facility] & P. IMP: R/O PNA Bilateral Pleural effusion: S/P placement of a right sided pleural decompression catheter. Pleural studies pending AMS Elevated troponin likely due to demand ischemia Dementia AFib with RVR HTN PLAN: ABX per ID O2 as needed Aspiration precautions Follow pleural analysis and cultures Would send pleural fluid for cytology as well Follow daily CXR while pleural catheter is in place Cardiac Telemetry monitoring Will follow Thank you. Dr Pardo <Shant Pardo - Last Filed: 01/28/18 15:14> Visit type - Emergency Visit Emergency Visit: Yes ED Registration Date: 01/27/18 Care time: The patient presented to the Emergency Department on the above date and was hospitalized for further evaluation of their emergent condition. - New Patient This patient is new to me today: Yes Date on this admission: 01/28/18 - Critical Care Critical Care patient: No <Hardik Guzman - Last Filed: 01/28/18 14:34>
--- NOTE | 2018-01-28 10:26 | CON.CARD ---
Consult Consult Specialty:: cardio - History of Present Illness Chief Complaint: altered MS History of Present Illness: 87 M sent by family for altered MS. pt unaware of reasons for coming to hospital, per ER notes--they contacted who stated 1 day of altered MS and dark urine/blood in stool/presumed dehydration x 1 week. hypothermic in ER. initial SBP 110s, then 80s (pt's baseline in office for past 2-3 mo is 80s-90s) pt currently very lethargic/obtunded, not opening eyes or providing history. has warming blanket on in ER. 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) Infectious Disease: Yes: Other (Chronic bacteruria/pyuria with urostomy) Musculoskeletal: Yes: Osteoarthritis (DISH syndrome) Dermatology: Yes: Squamous Cell (Right pinna scalp) - Past Surgical History Past Surgical History: Yes: Appendectomy, Ileal Conduit (Urostomy), Stent (See above) - Alcohol/Substance Use Hx Alcohol Use: No History of Substance Use: reports: None - Smoking History Smoking history: Never smoked Have you smoked in the past 12 months: No Aproximately how many cigarettes per day: 0 - Social History ADL: Independent History of Recent Travel: No Home Medications - Allergies Allergies/Adverse Reactions: Allergies Allergy/AdvReac Type Severity Reaction Status Date / Time No Known Drug Allergies Allergy Verified 01/27/18 19:08 - Home Medications Home Medications: Ambulatory Orders Apixaban [Eliquis] 5 mg PO BID 01/28/18 Metoprolol Tartrate 25 mg PO BID 01/28/18 Pitavastatin Calcium [Livalo] 2 mg PO HS 01/28/18 Family Disease History - Family Disease History Family Disease History: Other: Sister (diverticulitis), Son (osteoarthritis) Review of Systems Unable to obtain ROS, reason: obtunded - Review of Systems Constitutional: denies: Chills, Fever Eyes: denies: Eye Pain HENT: denies: Nasal Congestion Neck: denies: Stiffness Cardiovascular: denies: Palpitations Respiratory: denies: Orthopnea, PND Gastrointestinal: denies: Diarrhea, Rectal Bleeding Genitourinary: denies: Burning, Hematuria Musculoskeletal: denies: Muscle Pain Integumentary: denies: Rash Neurological: denies: Numbness, Seizure, Syncope Endocrine: denies: Excessive Sweating Hematology/Lymphatic: denies: Excessive Bleeding Vital Signs: Vital Signs Temperature 96.7 F L 01/28/18 09:20 Pulse Rate 110 H 01/28/18 06:52 Respiratory Rate 18 01/28/18 06:52 Blood Pressure 88/62 L 01/28/18 06:52 O2 Sat by Pulse Oximetry (%) 100 01/28/18 06:52 Constitutional: Yes: Well Nourished, No Distress Eyes: No: Sclera Icterus HENT: No: Nasal Congestion Neck: No: Decreased ROM Respiratory: Yes: CTA Bilaterally (anteriorly (not deep breaths)). No: Accessory Muscle Use, Rales, Wheezes Gastrointestinal: Yes: Normal Bowel Sounds. No: Distention, Hepatomegaly, Palpable Mass, Tenderness Cardiovascular: Yes: Pulse Irregular JVD: No Carotid Bruit: No PMI: Non-Displaced Heart Sounds: Yes: S1, S2. No: Gallop Murmur: No: Systolic Murmur, Diastolic Murmur Musculoskeletal: Yes: Other (No kyphosis) Extremities: No: Cool, Cyanosis Edema: No Peripheral Pulses: 2+ Left Carotid, 2+ Right Carotid, 2+ Left Doralis Pedis, 2+ Right Dorsalis Pedis Integumentary: No: Jaundice Neurological: No: Alert, Oriented (x3), Seizure Psychiatric: No: Agitated - Other Data Labs, Other Data: CBC, BMP 01/28/18 06:55 01/28/18 06:55 INR, PTT INR 2.53 (0.83-1.09) H 01/27/18 20:10 Troponin, BNP 01/27/18 01/27/18 01/28/18 20:10 21:10 01:09 Troponin I 0.16 H 0.17 H B-Natriuretic Peptide 04351.8 H Troponin, BNP 01/27/18 01/27/18 01/28/18 20:10 21:10 01:09 Troponin I 0.16 H 0.17 H B-Natriuretic Peptide 82025.8 H Laboratory Tests 01/27/18 01/27/18 01/28/18 20:10 20:10 01:09 WBC Hgb Plt Count Sodium Potassium Carbon Dioxide BUN 47 H Creatinine 2.0 H AST ALT Troponin I 0.16 H 0.17 H Albumin 01/28/18 01/28/18 06:55 06:55 WBC 5.5 Hgb 12.2 Plt Count 116 L D Sodium 138 Potassium 4.8 Carbon Dioxide 21 BUN 45 H Creatinine 1.7 H AST 12 L ALT 23 Troponin I Albumin 2.9 L Assessment/Plan ECG 01/27 (ER): rapid afib (135 bpm); nl axis. no path q's. nonsp TWAs (much improved ST-Ts vs prior 04/2017) CT chest: moderate to large bilat effusion with adjacent consolidation/atx. thickened interstitial septa c/w venous congestion. atx and infiltrates RML. ascending aorta 4.[address] head: no acute pathology or blood Echo 03/18: 1. Atrial fibrillation, with HRs ranging from 83-123 bpm (mostly in 90s-110s). 2. The left ventricular size is normal. 3. LA pressure is elevated. 4. Assessment of LVEF is confounded by atrial fibrillation rhythm with very variable R-R intervals. When analyzing beats occurring during average R-R intervals, EF appears to be jbgiin-[id number] reduced, in the range of 45%. Global hypokinesis present. 5. The right ventricle is normal in size and function. 6. Left atrium is severely dilated by volume. 7. The right atrium is mildly enlarged. 8. Trace amount of aortic regurgitation. 9. Moderate mitral regurgitation is present (central jet). Estimated regurgitant volume = 22 cc, ERO 0.15 cm2. 10. Moderate tricuspid regurgitation present. (No systolic flow reversal present in hepatic vein.) 11. Unable to estimate RVSP due to inadequate TR jet spectral doppler profile ( it is at least 35 mmHg). 12. Normal inferior vena cava with normal inspiratory collapse consistent with estimated right atrial pressure of 3 mmHg. 13. There is a trivial pericardial effusion present, consistent with physiologic fluid level. Holter 02/16: Afib, not controlled: average 107, max 145, 12 hours with mean > 100 bpm. no mila's MPI 2015 (persantine): no ischemia; (diaphragmatic attenuation artifact); nl EF , no RWMA altered MS, lactic acidosis: -hypothermic, lactic acid elevated...? infection. RML infiltrate on CT chest--r/ o PNA. 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 B and U cx's pending -per hospitalist, consider ID consult if indicated -no acute bleed or stroke or other pathology on CT head YOGI: -baseline creat 1.3-1.4 -YOGI here ? vol depletion based on family's provided hx -creat 2.0-->trending down -IVF - reports "blood in stool" at home, ? details. not anemic here. check stool occult blood persistent afib: - chronic uncontrolled rates with new-onset mild tachymyopathy on echo 03/18. - rate control c/b low sbp's (sbp's typically 80s-90s) and symptomatic orthostatic hypotension. - tolerated dig 0.125 for unknown amt of time with prior treating cell installer, then toxicicity on 0.25 mg dose--has remained off due to pt unreliable for compliance with regular bloodwork f/u. - lopressor incr'd to tid as outpt early 2017 with better HR control, but had to cut back dose recently due to BPs in 80s-90 with slight orthostatic drop in office. - HRs have remained reasonable in office, may increase here as pt has h/o agitated sundowning in hospital - initially rapid on presentation to ER, now reasonably (<110) at present. - cont home regimen, observe HR's here--if frequently > 120, resume low dose dig (0.125). - will continue regular outpt f/u of rate control as doing, and if further LVEF decline despite max tolerated AVN gale regimen, will add amio and then consider AVN ablation/PM - fludrocortisone for BP support - balance is poor, and appears to be the major source of prior h/o multiple falls. however he has been very cautious and had avoided falls for many months now, until recent episode at home several weeks ago. - CHADS VASC 3. previous outpt discussions with pt//dtr in past regarding risks/benefits of AC (with falls/ICH risk), aspirin alone (with incr'd embolic CVA risk) and Watchman device: they have declined Watchman and opted for continued AC with falls precautions for now. - not anemic here, no signs bleeding. - con't eliquis (5 bid if creatinine comes back to <1.5...will consider 2.5 bid if creat remains 1.3-1.5 range and remains hi falls risk as outpt) cardiomyopathy, ? acute mixed syst/diast CHF: - 03/2017 with newly depressed LVEF on echo, moderate MR--presumed related tachymyopathy. - no prior clinical chf. - currently with nonspecific sx's (alt MS), but CT chest showing signif bilat effusions and suggestion of interstitial edema suspected - no peripheral volume on exam. - BNP 14K, difficult to interpret in setting of signif reduced GFR (no priors available) - check repeat echo for EF - currently receiving IVF for YOGI with suspected prerenal/dehydration picture-- continue gentle hydration, with plan to stop fluids once creatinine back to near baseline (e.g. 1.5 range), ? tomorrow. - watch closely for signs of resp compromise (none thus far) - rate control as doing. - low dose BB as tolerates. low bp will not tolerate MAJOR/ARB - euvolemic, off diuretics (baseline renal insufficiency, orthostatic hypotension) CAD s/p MS and prior PCI's, elev troponin: - trop indeterminate range with flat trend x 3, now c/w ACS. ECG no isch changes - prior patent mlad and Lcx stent with ? residual rca disease (but no ischemia on subsequent stress testing). last stent 2005. - no need for additional ASA on top of AC given stable CAD history, pt's advacned age, bleeding risk/falls risk, per recent expert consensus statements. - con't statin (on livalo at home, prior statin intolerances) positional light-headedness/orthostatic hypotension/chronic dysequilibrium/ repeated falls: - no recent falls - midodrine and fludrocortisone previously tried, then held due to pt/ preferences (concerned about s.e. potential of all new meds) and lack of clear efficacy - fludrocort resumed recently for bp's in 80s persistently est time in pt exam, data review, and formulating mgmt plan of potentially life threatening problems = 37 min
--- NOTE | 2018-01-28 10:40 | CON.ID ---
Consult Consult Specialty:: infectious disease Referred by:: hospitalist - History of Present Illness Chief Complaint: weakness times one week. 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: Dementia (Possible mild early) Cardio/Vascular: Yes: AFIB (Resolved), CAD (LAD stent Cath 11/05 L Cx and distal RCA not amenable to stent), HTN, Hyperlipdemia, [place] (1999) Gastrointestinal: Yes: Hemorrhoids Hepatobiliary: Yes: Cholelithiasis Renal/: Yes: 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) Infectious Disease: Yes: Other (Chronic bacteruria/pyuria with urostomy) Musculoskeletal: Yes: Osteoarthritis (DISH syndrome) Dermatology: Yes: Squamous Cell (Right pinna scalp) - Past Surgical History Past Surgical History: Yes: Appendectomy, Ileal Conduit (Urostomy), Stent (See above) - Alcohol/Substance Use Hx Alcohol Use: No History of Substance Use: reports: None - Smoking History Smoking history: Never smoked Have you smoked in the past 12 months: No Aproximately how many cigarettes per day: 0 - Social History Usual Living Arrangement: With Spouse ADL: Family Assistance History of Recent Travel: No Home Medications - Allergies Allergies/Adverse Reactions: Allergies Allergy/AdvReac Type Severity Reaction Status Date / Time No Known Drug Allergies Allergy Verified 01/27/18 19:08 - Home Medications Home Medications: Ambulatory Orders Apixaban [Eliquis] 5 mg PO BID 01/28/18 Metoprolol Tartrate 25 mg PO BID 01/28/18 Pitavastatin Calcium [Livalo] 2 mg PO HS 01/28/18 Family Disease History - Family Disease History Family Disease History: Other: Sister (diverticulitis), Son (osteoarthritis) Review of Systems Unable to obtain ROS, reason: unable to obtain Physical Exam Vital Signs: Vital Signs Temperature 96.7 F L 01/28/18 09:20 Pulse Rate 110 H 01/28/18 06:52 Respiratory Rate 18 01/28/18 06:52 Blood Pressure 88/62 L 01/28/18 06:52 O2 Sat by Pulse Oximetry (%) 100 01/28/18 06:52 Constitutional: Yes: No Distress Eyes: Yes: Conjunctiva Clear HENT: Yes: Atraumatic, Normocephalic Cardiovascular: Yes: Regular Rate and Rhythm, Tachycardia Respiratory: Yes: Diminished (both bases) Gastrointestinal: Yes: Normal Bowel Sounds, Soft, Other (urostomy) ...Rectal Exam: Yes: Deferred Extremities: Yes: WNL Edema: No Labs: CBC, BMP 01/28/18 06:55 01/28/18 06:55 Imaging - Results Chest X-ray: Report Reviewed, Image Reviewed Cat Scan: Report Reviewed, Image Reviewed Assessment/Plan hypothermia, weakness no fevers normal WBC chest ct with bilateral effusions with compressive atelectasis cannot r/o RML infiltrate received levaquin/vancomycin this am switch to rocephin f/u cultures, legionella urinary antigen CHF with bilateral effusions- now with chest tube send fluid for cell count, chemistries, culture and gram stain doubt UTI given ileal conduit- would check renal sonogram with elevated creatinine
[2018-01-28] MEDS: PANTOPRAZOLE SODIUM 40 MG VIAL IVPUSH SCH (11:00)
[2018-01-28 12:19] LABS: PLEURAL FLUID APPEARANCE BLOODY; PLEURAL FLUID COLOR YELLOW; PLEURAL FLUID RBC 2936 /mm3
[2018-01-28] MEDS ORDERED: CEFTRIAXONE 2 GM/100 ML BAG IVPB ONE ×2 (13:19→13:20)
[2018-01-28 13:26] LABS: PLEURAL FLUID LYMPHOCYTES 25 %; PLEURAL FLUID MACROPHAGES 20 %; PLEURAL FLUID NEUTROPHIL 40 %
[2018-01-28] MEDS: CEFTRIAXONE 2 GM in DEXTROSE 5%-WATER 100 ML IVPB SCH (13:29)
[2018-01-28] MEDS: APIXABAN 5 MG TABLET PO SCH ×2 (14:08→21:24)
[2018-01-28] MEDS: SODIUM CHLORIDE 1,000 ML IV SCH (14:09)
[2018-01-28] MEDS ORDERED: PANTOPRAZOLE SODIUM 40 MG/100 ML BAG IVPB ONE (14:13)
[2018-01-28] MEDS ORDERED: METOPROLOL TARTRATE 25 MG TABLET (FP) PO ONE (14:51)
[2018-01-28] MEDS ORDERED: DIGOXIN 0.125 MG TABLET (FP) PO ONE (14:52)
--- NOTE | 2018-01-28 15:06 | EKG ---
Test Reason : Blood Pressure : / mmHG Vent. Rate : 113 BPM Atrial Rate : 110 BPM P-R Int : 000 ms QRS Dur : 078 ms QT Int : 362 ms P-R-T Axes : 000 030 064 degrees QTc Int : 496 ms ATRIAL FIBRILLATION WITH RAPID VENTRICULAR RESPONSE ABNORMAL ECG WHEN COMPARED WITH ECG OF 27-JAN-2018 20:08, NO SIGNIFICANT CHANGE WAS FOUND Confirmed by SAM SANCHES MD ([id number]) on 01/28/2018 3:06:37 PM Referred By: Confirmed By:SAM SANCHES MD
[2018-01-28] MEDS ORDERED: DIGOXIN 0.125 MG TABLET (FP) ONE (15:19)
--- NOTE | 2018-01-28 16:47 | ECHO ---
Name: GUNNAR KEENE Exam:Adult Echocardiogram Study Date: 01/28/2018 02:24 PM Age: 87 yrs Reason For Study: LVF Height: 70 in Weight: 145 lb BSA: 1.8 m2 MMode/2D Measurements & Calculations IVSd: 1.0 cm Ao root diam: 3.1 cm LVIDd: 4.4 cm LA dimension: 4.0 cm LVIDs: 3.8 cm LVPWd: 0.84 cm EDV(Teich): 88.8 ml TAPSE: 2.4 cm ESV(Teich): 60.8 ml RV S Zhao: 10.5 cm/sec Doppler Measurements & Calculations MV E max zhao: 81.4 cm/sec Ao V2 max: 111.6 cm/sec MV A max zhao: 38.0 cm/sec Ao max P.0 mmHg MV E/A: 2.1 AI P1/2t: 320.5 msec MV dec time: 0.19 sec AI max zhao: 266.8 cm/sec LV V1 max P.0 mmHg AI max P.5 mmHg LV V1 max: 70.0 cm/sec AI dec slope: 243.8 cm/sec2 MR max zhao: 328.2 cm/sec TR max zhao: 290.9 cm/sec MR max P.2 mmHg TR max P.0 mmHg Med Peak E' Zhao: 7.7 cm/sec Med E/e': 10.6 Lat Peak E' Zhao: 5.1 cm/sec Lat E/e': 16.1 Procedure A complete two-dimensional transthoracic echocardiogram was performed (2D, M-mode, Doppler and color flow Doppler). Left Ventricle The left ventricle is normal in size. Left ventricular systolic function is severely reduced. Ejectio n Fraction = 30-35%. There is severe global hypokinesis of the left ventricle. Right Ventricle The right ventricle is normal size. The right ventricular systolic function is normal. RV systolic TD I is 10 cm/s. Atria The left atrium is mildly dilated. The right atrium is mildly dilated. Mitral Valve There is mild mitral annular calcification. There is mild to moderate mitral regurgitation. Tricuspid Valve The tricuspid valve is normal in structure and function. There is moderate tricuspid regurgitation. P ulmonary artery systolic pressure is at least 43 mmHg assuming RA pressure of 3 mmHg. Aortic Valve There is mild aortic sclerosis.;. Mild aortic regurgitation. Pulmonic Valve The pulmonic valve is not well visualized. Great Vessels The aortic root is normal size. Pericardium/Pleura Small pericardial effusion (<1cm). Interpretation Summary The left ventricle is normal in size. Left ventricular systolic function is severely reduced. There is severe global hypokinesis of the left ventricle. Ejection Fraction = 30-35%. The right ventricular systolic function is normal. The left atrium is mildly dilated. The right atrium is mildly dilated. There is mild mitral annular calcification. There is mild to moderate mitral regurgitation. There is moderate tricuspid regurgitation. Pulmonary artery systolic pressure is at least 43 mmHg assuming RA pressure of 3 mmHg There is mild aortic sclerosis. Mild aortic regurgitation. Small pericardial effusion (<1cm) Previous study is not available for comparison Wilmer Alvarenga MD 01/28/2018 04:47 PM
[2018-01-28] MEDS: METOPROLOL TARTRATE 5 MG/5 ML VIAL IVPUSH PRN (17:34)
[2018-01-28] MEDS: ATORVASTATIN CA 10 MG TABLET (FP) PO SCH (21:24)
[2018-01-29] MEDS: METOPROLOL TARTRATE 5 MG/5 ML VIAL IVPUSH PRN (01:57)
[2018-01-29] MEDS: METOPROLOL TARTRATE 25 MG TABLET (FP) PO SCH ×3 (05:48→21:20)
[2018-01-29] MEDS ORDERED: METOPROLOL TARTRATE 5 MG/5 ML VIAL ONE (07:16)
[2018-01-29] MEDS ORDERED: METOPROLOL TARTRATE 5 MG/5 ML VIAL IVPB ONE (07:45)
--- NOTE | 2018-01-29 07:55 | PN ---
Progress Note, Physician Chief Complaint: more alert no agitation, still confused - Current Medication List Current Medications: Active Medications Apixaban (Eliquis -) 5 mg PO BID [facility] Last Admin: 01/28/18 21:24 Dose: 5 mg Atorvastatin Calcium (Lipitor -) 10 mg PO HS [facility] Last Admin: 01/28/18 21:24 Dose: 10 mg Ceftriaxone Sodium 2 gm/ (Dextrose) 100 mls @ 200 mls/hr IVPB DAILY [facility]; Protocol Last Admin: 01/28/18 13:29 Dose: 200 mls/hr Sodium Chloride (Normal Saline -) 1,000 mls @ 70 mls/hr IV ASDIR [facility] Last Admin: 01/28/18 14:09 Dose: 70 mls/hr Metoprolol Tartrate (Lopressor -) 25 mg PO TID [facility] Last Admin: 01/29/18 05:48 Dose: Not Given Metoprolol Tartrate (Lopressor Injection -) 5 mg IVPUSH Q8H PRN PRN Reason: TACHYCARDIA Last Admin: 01/29/18 01:57 Dose: 5 mg Pantoprazole Sodium (Protonix Iv) 40 mg IVPUSH DAILY [facility] Last Admin: 01/28/18 11:00 Dose: 40 mg - Objective Vital Signs: Vital Signs Temperature 98.1 F 01/29/18 06:10 Pulse Rate 96 H 01/29/18 06:10 Respiratory Rate 18 01/29/18 06:10 Blood Pressure 111/62 01/29/18 06:10 O2 Sat by Pulse Oximetry (%) 97 01/28/18 21:00 Elderly man not in distress still disoriented HEENT: Mm moist anemia NECK: No JVd No Bruit CHEST: Decrease AE at bases Rt Chest tube CVS: S1S2 Irr ABD; No distention non tender, suprapubic cathter at place. EXT: Trace edema feet, Pulses + COMMUNITY LEADER: Drowsy sleepy , will re evaluate once more alert Labs: CBC, BMP 01/28/18 06:55 01/28/18 06:55 INR, PTT INR 2.53 (0.83-1.09) H 01/27/18 20:10 - ....Imaging X-ray: Report Reviewed (01/29; Rt Chest tube still pleural effusion present b/l) Problem List - Problems (1) Altered mental status Assessment/Plan: Mild improvement, most likely Metabolic encephalopathy secondary too hypoxia, uremia and sepsis CT haed no acute changes Code(s): R41.82 - ALTERED MENTAL STATUS, UNSPECIFIED (2) Acute respiratory failure with hypoxia Assessment/Plan: Due to B/L Pleural effusion s/p chest tube Rt ML Pneumonia/ CHF will cont O2 inhalation, U Pneumpcoccal Ag + on Ceftriaxone, ID on the case Code(s): J96.01 - ACUTE RESPIRATORY FAILURE WITH HYPOXIA (3) Sepsis Assessment/Plan: Due to Pneumonia on IV abx Code(s): A41.9 - SEPSIS, UNSPECIFIED ORGANISM (4) UTI (urinary tract infection) Assessment/Plan: On Iv Ceftriaxone f/u cultures Code(s): N39.0 - URINARY TRACT INFECTION, SITE NOT SPECIFIED Qualifiers: (5) Acute renal failure Assessment/Plan: Improving on IV Hydration Code(s): N17.9 - ACUTE KIDNEY FAILURE, UNSPECIFIED Qualifiers: Acute renal failure type: unspecified Qualified Code(s): N17.9 - Acute kidney failure, unspecified (6) Atrial fibrillation Assessment/Plan: Rate poorly controlled recived digoxine on control on AC Metoprolol 5 mg IVSS q 8hrly PRN and Po metoprololt 25 q12 Code(s): I48.91 - UNSPECIFIED ATRIAL FIBRILLATION Qualifiers: Atrial fibrillation type: chronic Qualified Code(s): I48.2 - Chronic atrial fibrillation (7) Elevated troponin I level Assessment/Plan: H/O CAD s/p PCI elevated trop probably Demand Ischemia cont B Blockers statin Code(s): R74.8 - ABNORMAL LEVELS OF OTHER SERUM ENZYMES (8) CHF exacerbation Assessment/Plan: HfrEF 35-40% Known case of tachycardia induced Cardiomyopathy lCont Current management as per cardiology consult Code(s): I50.9 - HEART FAILURE, UNSPECIFIED (9) CKD (chronic kidney disease) stage 3, GFR 30-59 ml/min Assessment/Plan: Base line CKD stage 3 present with worsening functions Creat 2.0 Code(s): N18.3 - CHRONIC KIDNEY DISEASE, STAGE 3 (MODERATE) (10) Pleural effusion Assessment/Plan: B/L S/p Rt chest tube hemorrhagic will f/u cytology culture and cell count. Code(s): J90 - PLEURAL EFFUSION, NOT ELSEWHERE CLASSIFIED (11) Pneumonia Assessment/Plan: U STreptococcal Ag +, Ct chest shows Rt ML Pneumonia will cont Current abx ID consult F/U Cultures Code(s): J18.9 - PNEUMONIA, UNSPECIFIED ORGANISM (12) Goals of care, counseling/discussion Assessment/Plan: Case discussed with and daughter at bed side in details all question answered patient is DNR/DNI, Code(s): Z71.89 - OTHER SPECIFIED COUNSELING
[2018-01-29] MEDS ORDERED: DEXTROSE 5%-WATER 100 ML IVPB ONE (08:42)
[2018-01-29] MEDS: PANTOPRAZOLE SODIUM 40 MG VIAL IVPUSH SCH (09:03)
[2018-01-29] MEDS: APIXABAN 5 MG TABLET PO SCH ×2 (09:03→21:20)
[2018-01-29] MEDS: CEFTRIAXONE 2 GM in DEXTROSE 5%-WATER 100 ML IVPB SCH (09:03)
[2018-01-29] MEDS: SODIUM CHLORIDE 1,000 ML IV SCH (11:00)
--- NOTE | 2018-01-29 12:18 | PN ---
Progress Note (short form) - Note Progress Note: cc: alt ms s: has been refusing some meds. not answering questions appropriately Current Medications Apixaban (Eliquis -) 5 mg PO BID [facility] Last Admin: 01/29/18 09:03 Dose: 5 mg Atorvastatin Calcium (Lipitor -) 10 mg PO HS [facility] Last Admin: 01/28/18 21:24 Dose: 10 mg Ceftriaxone Sodium 2 gm/ (Dextrose) 100 mls @ 200 mls/hr IVPB DAILY [facility]; Protocol Last Admin: 01/29/18 09:03 Dose: 200 mls/hr Sodium Chloride (Normal Saline -) 1,000 mls @ 70 mls/hr IV ASDIR [facility] Last Admin: 01/28/18 14:09 Dose: 70 mls/hr Metoprolol Tartrate (Lopressor -) 25 mg PO TID [facility] Last Admin: 01/29/18 05:48 Dose: Not Given Metoprolol Tartrate (Lopressor Injection -) 5 mg IVPUSH Q8H PRN PRN Reason: TACHYCARDIA Last Admin: 01/29/18 01:57 Dose: 5 mg Pantoprazole Sodium (Protonix Iv) 40 mg IVPUSH DAILY [facility] Last Admin: 01/29/18 09:03 Dose: 40 mg Vital Signs: Vital Signs Period Temp Pulse Resp BP Sys/Melchor Pulse Ox Last 24 Hr 96.3 F-98.1 F 90-141 16-22 102-138/54-87 97-100 Constitutional: Yes: Well Nourished, No Distress Eyes: No: Sclera Icterus HENT: No: Nasal Congestion Neck: No: Decreased ROM Respiratory: Yes: CTA Bilaterally (anteriorly (not deep breaths)). No: Accessory Muscle Use, Rales, Wheezes Gastrointestinal: Yes: Normal Bowel Sounds. No: Distention, Hepatomegaly, Palpable Mass, Tenderness Cardiovascular: Yes: Pulse Irregular JVD: No Carotid Bruit: No PMI: Non-Displaced Heart Sounds: Yes: S1, S2. No: Gallop Murmur: No: Systolic Murmur, Diastolic Murmur Musculoskeletal: Yes: Other (No kyphosis) Extremities: No: Cool, Cyanosis Edema: casey pedal edema Peripheral Pulses: 2+ Left Carotid, 2+ Right Carotid, 2+ Left Doralis Pedis, 2+ Right Dorsalis Pedis Integumentary: No: Jaundice Neurological: No: Alert, Oriented (x3), Seizure Psychiatric: No: Agitated Assessment/Plan ECG 01/27 (ER): rapid afib (135 bpm); nl axis. no path q's. nonsp TWAs (much improved ST-Ts vs prior 04/2017) CT chest: moderate to large bilat effusion with adjacent consolidation/atx. thickened interstitial septa c/w venous congestion. atx and infiltrates RML. ascending aorta 4.[address] head: no acute pathology or blood Echo 03/18: 1. Atrial fibrillation, with HRs ranging from 83-123 bpm (mostly in 90s-110s). 2. The left ventricular size is normal. 3. LA pressure is elevated. 4. Assessment of LVEF is confounded by atrial fibrillation rhythm with very variable R-R intervals. When analyzing beats occurring during average R-R intervals, EF appears to be [id number] reduced, in the range of 45%. Global hypokinesis present. 5. The right ventricle is normal in size and function. 6. Left atrium is severely dilated by volume. 7. The right atrium is mildly enlarged. 8. Trace amount of aortic regurgitation. 9. Moderate mitral regurgitation is present (central jet). Estimated regurgitant volume = 22 cc, ERO 0.15 cm2. 10. Moderate tricuspid regurgitation present. (No systolic flow reversal present in hepatic vein.) 11. Unable to estimate RVSP due to inadequate TR jet spectral doppler profile ( it is at least 35 mmHg). 12. Normal inferior vena cava with normal inspiratory collapse consistent with estimated right atrial pressure of 3 mmHg. 13. There is a trivial pericardial effusion present, consistent with physiologic fluid level. Holter 02/16: Afib, not controlled: average 107, max 145, 12 hours with mean > 100 bpm. no mila's MPI 2014 (persantine): no ischemia; (diaphragmatic attenuation artifact); nl EF , no RWMA tele: afib rates 120s, frequent episodes 140s-150s echo 12/2017 EF 30-35%, RV nl size and function, LA/RA mildly dilated, mild to mod MR, mild TR, mild AR, small pericardal effusion altered MS, lactic acidosis: -hypothermic, lactic acid elevated...? infection. RML infiltrate on CT chest--r/ o PNA. 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 B and U cx's pending -per hospitalist, consider ID consult if indicated -no acute bleed or stroke or other pathology on CT head YOGI: -baseline creat 1.3-1.4 -YOGI here ? vol depletion based on family's provided hx -creat 2.0-->trending down, no labs today -IVF - reports "blood in stool" at home, ? details. not anemic here. check stool occult blood persistent afib: - chronic uncontrolled rates with new-onset mild tachymyopathy on echo 03/18. - rate control c/b low sbp's (sbp's typically 80s-90s) and symptomatic orthostatic hypotension. 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 - lopressor incr'd to tid as outpt early 2017 with better HR control, but had to cut back dose recently due to BPs in 80s-90 with slight orthostatic drop in office. - HRs have remained reasonable in office, may increase here as pt has h/o agitated sundowning in hospital - will continue regular outpt f/u of rate control as doing, and if further LVEF decline despite max tolerated AVN gale regimen, will add amio and then consider AVN ablation/PM - fludrocortisone for BP support - balance is poor, and appears to be the major source of prior h/o multiple falls. however he has been very cautious and had avoided falls for many months now, until recent episode at home several weeks ago. - CHADS VASC 3. per Dr. Fay: previous outpt discussions with pt//dtr in past regarding risks/benefits of AC (with falls/ICH risk), aspirin alone (with incr'd embolic CVA risk) and Watchman device: they have declined Watchman and opted for continued AC with falls precautions for now. - not anemic here, no signs bleeding. - con't eliquis (5 bid if creatinine comes back to <1.5...will consider 2.5 bid if creat remains 1.3-1.5 range and remains hi falls risk as outpt) - rapid rates noted on tele, 140s-150s this morning. has been refusing some PO meds including metoprolol. digoxin 0.125 mg IV x 1 now cardiomyopathy, ? acute mixed syst/diast CHF: - 03/2017 with newly depressed LVEF on echo, moderate MR--presumed related tachymyopathy. - no prior clinical chf. - currently with nonspecific sx's (alt MS), but CT chest showing signif bilat effusions and suggestion of interstitial edema suspected - BNP 14K, difficult to interpret in setting of signif reduced GFR (no priors available) - EF 30-35% on echo here, lower than prior - had been receiving IVF for YOGI, repeat lytes ordered - stop IVF for now, edema noted on exam - low dose BB as tolerates. low bp will not tolerate MAJOR/ARB - hold diuretics (baseline renal insufficiency, orthostatic hypotension), monitor CAD s/p OK and prior PCI's, elev troponin: - trop indeterminate range with flat trend x 3, now c/w ACS. ECG no isch changes - prior patent mlad and Lcx stent with ? residual rca disease (but no ischemia on subsequent stress testing). last stent 2005. - no need for additional ASA on top of AC given stable CAD history, pt's advacned age, bleeding risk/falls risk, per recent expert consensus statements. - con't statin (on livalo at home, prior statin intolerances) positional light-headedness/orthostatic hypotension/chronic dysequilibrium/ repeated falls: - no recent falls - midodrine and fludrocortisone previously tried, then held due to pt/ preferences (concerned about s.e. potential of all new meds) and lack of clear efficacy - fludrocort resumed recently for bp's in 80s persistently
[2018-01-29] MEDS ORDERED: DIGOXIN 0.5 MG/2 ML AMPUL IVPUSH ONE (12:26)
--- NOTE | 2018-01-29 13:23 | PN ---
Progress Note, Physician History of Present Illness: pulmonary awake,alert,confused,-resp distress.pleural fluid chemistries pending - Current Medication List Current Medications: Active Medications Apixaban (Eliquis -) 5 mg PO BID [facility] Last Admin: 01/29/18 09:03 Dose: 5 mg Atorvastatin Calcium (Lipitor -) 10 mg PO HS [facility] Last Admin: 01/28/18 21:24 Dose: 10 mg Ceftriaxone Sodium 2 gm/ (Dextrose) 100 mls @ 200 mls/hr IVPB DAILY [facility]; Protocol Last Admin: 01/29/18 09:03 Dose: 200 mls/hr Metoprolol Tartrate (Lopressor -) 25 mg PO TID [facility] Last Admin: 01/29/18 05:48 Dose: Not Given Metoprolol Tartrate (Lopressor Injection -) 5 mg IVPUSH Q8H PRN PRN Reason: TACHYCARDIA Last Admin: 01/29/18 01:57 Dose: 5 mg Pantoprazole Sodium (Protonix Iv) 40 mg IVPUSH DAILY [facility] Last Admin: 01/29/18 09:03 Dose: 40 mg - Objective Vital Signs: Vital Signs Temperature 96.3 F L 01/29/18 07:25 Pulse Rate 129 H 01/29/18 12:47 Respiratory Rate 18 01/29/18 07:25 Blood Pressure 116/72 01/29/18 07:25 O2 Sat by Pulse Oximetry (%) 98 01/29/18 09:00 Constitutional: Yes: Calm, Thin Eyes: Yes: WNL HENT: Yes: WNL Neck: Yes: WNL Cardiovascular: Yes: Pulse Irregular, S1, S2 Respiratory: Yes: Diminished Gastrointestinal: Yes: Normal Bowel Sounds, Soft Extremities: Yes: WNL Edema: No Labs: CBC, BMP Problem List - Problems (1) Altered mental status Code(s): R41.82 - ALTERED MENTAL STATUS, UNSPECIFIED (2) Elevated troponin I level Code(s): R74.8 - ABNORMAL LEVELS OF OTHER SERUM ENZYMES (3) Pneumonia Code(s): J18.9 - PNEUMONIA, UNSPECIFIED ORGANISM (4) Atrial fibrillation Code(s): I48.91 - UNSPECIFIED ATRIAL FIBRILLATION Qualifiers: Atrial fibrillation type: chronic Qualified Code(s): I48.2 - Chronic atrial fibrillation (5) Dementia Code(s): F03.90 - UNSPECIFIED DEMENTIA WITHOUT BEHAVIORAL DISTURBANCE Qualifiers: Dementia type: unspecified type Dementia behavioral disturbance: without behavioral disturbance Qualified Code(s): F03.90 - Unspecified dementia without behavioral disturbance (6) ASHD (arteriosclerotic heart disease) Code(s): I25.10 - ATHSCL HEART DISEASE OF [place] CORONARY ARTERY W/O ANG PCTRS (7) Pleural effusion Code(s): J90 - PLEURAL EFFUSION, NOT ELSEWHERE CLASSIFIED Assessment/Plan IMP: R/O PNA Bilateral Pleural effusion: S/P placement of a right sided pleural decompression catheter. Pleural studies pending AMS Elevated troponin likely due to demand ischemia Dementia AFib with RVR HTN PLAN: ABX per ID O2 as needed Aspiration precautions Follow daily CXR while pleural catheter is in place DR SPENCER
[2018-01-29 14:27] LABS: ANION GAP 10 MMOL/L (8-16); BLOOD UREA NITROGEN 36 mg/dL (7-18); CHLORIDE 111 mmol/L (98-107); CO2 22 mmol/L (21-32); CREATININE 1.7 mg/dL (0.55-1.3); GLUCOSE,RANDOM 83 mg/dL (74-106); POTASSIUM 4.7 mmol/L (3.5-5.1); SODIUM 142 mmol/L (136-145)
[2018-01-29] MEDS: ACETAMINOPHEN 325 MG TABLET (FP) PO PRN (15:36)
--- NOTE | 2018-01-29 17:45 | PN ---
Progress Note (short form) - Note Progress Note: much more alert no fevers Vital Signs Period Temp Pulse Resp BP Sys/Melchor Pulse Ox Last 24 Hr 96.3 F-98.1 F 96-141 -18 102-127/54-76 97-98 cor-rrr lungs decreased bs at bases abd soft,nt +ileal loop ext no edema +chest tube on right CBC, BMP 01/28/18 06:55 01/29/18 13:08 Laboratory Tests 01/28/18 11:00 Pleural WBC 16 Pleural RBC 2936 Pleural Neutrophils 40 Pleural Lymphocytes 25 Pleural Macrophages 20 Microbiology 01/28/18 11:00 Pleural Fluid Gram Stain - Final 01/28/18 11:00 Pleural Fluid Body Fluid Culture - Preliminary NO AEROBIC GROWTH, 24 HRS 01/27/18 21:58 Urine - Urine Clean Catch Urine Culture - Final Contaminated: Please Repeat 01/27/18 20:10 Blood - Peripheral Venous Blood Culture - Preliminary NO GROWTH OBTAINED AFTER 24 HOURS, INCUBATION TO CONTINUE FOR 4 DAYS. 01/27/18 20:10 Blood - Peripheral Venous Blood Culture - Preliminary NO GROWTH OBTAINED AFTER 24 HOURS, INCUBATION TO CONTINUE FOR 4 DAYS. 01/28/18 11:00 Urine For Antigen Detection Legionella Antigen - Final 01/28/18 11:00 Urine For Antigen Detection Streptococcus pneumoniae Antigen (M - Final a/p pneumococcal pneumonia fluid not c/w empyema continue rocephin no need to repeat urine culture bilateral pleural effusions- suspect secondary to chf now with chest tube management per pulmonary afib/chf- per cardiology
[2018-01-29] MEDS: ATORVASTATIN CA 10 MG TABLET (FP) PO SCH (21:20)
[2018-01-30] MEDS: METOPROLOL TARTRATE 5 MG/5 ML VIAL IVPUSH PRN ×2 (05:34→23:04)
[2018-01-30] MEDS: METOPROLOL TARTRATE 25 MG TABLET (FP) PO SCH ×3 (05:58→22:34)
[2018-01-30 06:46] LABS: BASO % 0.5 % (0-2.0); HEMATOCRIT 43.2 % (35.4-49); HEMOGLOBIN 13.9 GM/dL (11.7-16.9); LYMPH % 10.2 % (8-40); MCH 30.3 pg (25.7-33.7); MCHC 32.2 g/dl (32.0-35.9); MEAN CELL VOLUME 94.4 fl (80-96); MEAN PLT VOLUME 9.7 fl (7.5-11.1); MONO % 13.7 % (3.8-10.2); NEUT % 74.6 % (42.8-82.8); PLATELET COUNT 121 K/MM3 (134-434); RBC 4.58 M/mm3 (4.00-5.60); RDW 15.7 % (11.9-15.9); WHITE BLOOD COUNT 6.8 K/mm3 (4.0-10.0)
[2018-01-30 07:23] LABS: ALK PHOS 104 U/L (45-117); ANION GAP 9 MMOL/L (8-16); BILIRUBIN,TOTAL 0.6 mg/dL (0.2-1); BLOOD UREA NITROGEN 34 mg/dL (7-18); CALCIUM 8.8 mg/dL (8.5-10.1); CHLORIDE 111 mmol/L (98-107); CO2 21 mmol/L (21-32); CREATININE 1.6 mg/dL (0.55-1.3); GLUCOSE,RANDOM 71 mg/dL (74-106); POTASSIUM 4.4 mmol/L (3.5-5.1); SGOT/AST 11 U/L (15-37); SGPT/ALT 24 U/L (13-61); SODIUM 141 mmol/L (136-145)
--- NOTE | 2018-01-30 10:16 | PN ---
Progress Note, Physician Chief Complaint: Patient opens eyes to voice slightly but otherwise does not respond. - Current Medication List Current Medications: Active Medications Acetaminophen (Tylenol -) 650 mg PO Q6H PRN PRN Reason: FEVER Last Admin: 01/29/18 15:36 Dose: 650 mg Apixaban (Eliquis -) 5 mg PO BID [facility] Last Admin: 01/29/18 21:20 Dose: 5 mg Atorvastatin Calcium (Lipitor -) 10 mg PO HS [facility] Last Admin: 01/29/18 21:20 Dose: 10 mg Ceftriaxone Sodium 2 gm/ (Dextrose) 100 mls @ 200 mls/hr IVPB DAILY [facility]; Protocol Last Admin: 01/29/18 09:03 Dose: 200 mls/hr Metoprolol Tartrate (Lopressor -) 25 mg PO TID [facility] Last Admin: 01/30/18 05:58 Dose: 25 mg Metoprolol Tartrate (Lopressor Injection -) 5 mg IVPUSH Q8H PRN PRN Reason: TACHYCARDIA Last Admin: 01/30/18 05:34 Dose: 5 mg Pantoprazole Sodium (Protonix Iv) 40 mg IVPUSH DAILY [facility] Last Admin: 01/29/18 09:03 Dose: 40 mg - Objective Vital Signs: Vital Signs Temperature 36.6 C 01/30/18 06:00 Pulse Rate 112 H 01/30/18 06:00 Respiratory Rate 20 01/30/18 06:00 Blood Pressure 132/80 01/30/18 06:00 O2 Sat by Pulse Oximetry (%) 99 01/29/18 21:00 Constitutional: Yes: Well Nourished, No Distress, Calm Cardiovascular: Yes: Tachycardia, Pulse Irregular. No: Gallop, Murmur, Rub Respiratory: Yes: Regular, CTA Bilaterally. No: Rales, Rhonchi, Wheezes Gastrointestinal: Yes: Normal Bowel Sounds, Soft. No: Distention, Tenderness Extremities: Yes: WNL Edema: No Labs: CBC, BMP 01/30/18 06:00 01/30/18 06:00 INR, PTT INR 2.53 (0.83-1.09) H 01/27/18 20:10 Problem List - Problems (1) Pneumonia Assessment/Plan: -appreciate ID assistance -continue rocephin 2gm daily -urine presumptive positive for streptococcus Code(s): J18.9 - PNEUMONIA, UNSPECIFIED ORGANISM Qualifiers: Pneumonia type: due to Pneumococcus Laterality: right Lung location: middle lobe of lung Qualified Code(s): J13 - Pneumonia due to Streptococcus pneumoniae (2) Acute metabolic encephalopathy Assessment/Plan: -secondary to pneumonia -continue treatment Code(s): G93.41 - METABOLIC ENCEPHALOPATHY (3) CHF exacerbation Assessment/Plan: -most likely cause of pleural effusions -chest tube in place -holding diuretics -cardiology following Code(s): I50.9 - HEART FAILURE, UNSPECIFIED Qualifiers: Heart failure type: combined systolic and diastolic Qualified Code(s): I50.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 (4) Pleural effusion Assessment/Plan: -s/p chest tube -awaiting full pleural fluid results but does not look infectious -suspect will be transudate secondary to CHF -pulmonary following Code(s): J90 - PLEURAL EFFUSION, NOT ELSEWHERE CLASSIFIED (5) Sepsis Assessment/Plan: -resolved -continue rocephin Code(s): A41.9 - SEPSIS, UNSPECIFIED ORGANISM (6) Acute renal failure Assessment/Plan: -now at baseline -monitor Code(s): N17.9 - ACUTE KIDNEY FAILURE, UNSPECIFIED Qualifiers: Acute renal failure type: unspecified Qualified Code(s): N17.9 - Acute kidney failure, unspecified (7) Atrial fibrillation Assessment/Plan: -with rvr -? if taking meds -cardiology following -received IV digoxin yesterday Code(s): I48.91 - UNSPECIFIED ATRIAL FIBRILLATION Qualifiers: Atrial fibrillation type: chronic Qualified Code(s): I48.2 - Chronic atrial fibrillation (8) CKD (chronic kidney disease) stage 3, GFR 30-59 ml/min Assessment/Plan: -at baseline Code(s): N18.3 - CHRONIC KIDNEY DISEASE, STAGE 3 (MODERATE) (9) Dementia Assessment/Plan: -still with AMS -monitor for improvement Code(s): F03.90 - UNSPECIFIED DEMENTIA WITHOUT BEHAVIORAL DISTURBANCE Qualifiers: Dementia type: unspecified type Dementia behavioral disturbance: without behavioral disturbance Qualified Code(s): F03.90 - Unspecified dementia without behavioral disturbance
[2018-01-30] MEDS ORDERED: PT OWN MED DRAWER 7, Y5N ONE (10:20)
[2018-01-30] MEDS ORDERED: DEXTROSE 5%-WATER 100 ML IVPB ONE (10:20)
[2018-01-30] MEDS: PANTOPRAZOLE SODIUM 40 MG VIAL IVPUSH SCH (10:26)
[2018-01-30] MEDS: APIXABAN 5 MG TABLET PO SCH ×2 (10:26→22:34)
[2018-01-30] MEDS: CEFTRIAXONE 2 GM in DEXTROSE 5%-WATER 100 ML IVPB SCH (10:26)
--- NOTE | 2018-01-30 11:46 | PN ---
Progress Note, Physician History of Present Illness: pulmonary sleeping ,no distress,-congestion - Current Medication List Current Medications: Active Medications Acetaminophen (Tylenol -) 650 mg PO Q6H PRN PRN Reason: FEVER Last Admin: 01/29/18 15:36 Dose: 650 mg Apixaban (Eliquis -) 5 mg PO BID [facility] Last Admin: 01/30/18 10:26 Dose: 5 mg Atorvastatin Calcium (Lipitor -) 10 mg PO HS [facility] Last Admin: 01/29/18 21:20 Dose: 10 mg Ceftriaxone Sodium 2 gm/ (Dextrose) 100 mls @ 200 mls/hr IVPB DAILY [facility]; Protocol Last Admin: 01/30/18 10:26 Dose: 200 mls/hr Metoprolol Tartrate (Lopressor -) 25 mg PO TID [facility] Last Admin: 01/30/18 05:58 Dose: 25 mg Metoprolol Tartrate (Lopressor Injection -) 5 mg IVPUSH Q8H PRN PRN Reason: TACHYCARDIA Last Admin: 01/30/18 05:34 Dose: 5 mg Pantoprazole Sodium (Protonix Iv) 40 mg IVPUSH DAILY [facility] Last Admin: 01/30/18 10:26 Dose: 40 mg - Objective Vital Signs: Vital Signs Temperature 97.8 F 01/30/18 06:00 Pulse Rate 112 H 01/30/18 06:00 Respiratory Rate 20 01/30/18 06:00 Blood Pressure 132/80 01/30/18 06:00 O2 Sat by Pulse Oximetry (%) 99 01/29/18 21:00 Constitutional: Yes: Thin, Other (sleeping) Eyes: Yes: WNL HENT: Yes: WNL Neck: Yes: WNL Cardiovascular: Yes: Pulse Irregular, S1, S2 Respiratory: Yes: Diminished Gastrointestinal: Yes: Normal Bowel Sounds, Soft Extremities: Yes: WNL Edema: No Labs: CBC, BMP 01/30/18 06:00 01/30/18 06:00 INR, PTT INR 2.53 (0.83-1.09) H 01/27/18 20:10 Problem List - Problems (1) Altered mental status Code(s): R41.82 - ALTERED MENTAL STATUS, UNSPECIFIED (2) Elevated troponin I level Code(s): R74.8 - ABNORMAL LEVELS OF OTHER SERUM ENZYMES (3) Pneumonia Code(s): J18.9 - PNEUMONIA, UNSPECIFIED ORGANISM Qualifiers: Pneumonia type: due to Pneumococcus Laterality: right Lung location: middle lobe of lung Qualified Code(s): J13 - Pneumonia due to Streptococcus pneumoniae (4) Atrial fibrillation Code(s): I48.91 - UNSPECIFIED ATRIAL FIBRILLATION Qualifiers: Atrial fibrillation type: chronic Qualified Code(s): I48.2 - Chronic atrial fibrillation (5) Dementia Code(s): F03.90 - UNSPECIFIED DEMENTIA WITHOUT BEHAVIORAL DISTURBANCE Qualifiers: Dementia type: unspecified type Dementia behavioral disturbance: without behavioral disturbance Qualified Code(s): F03.90 - Unspecified dementia without behavioral disturbance (6) ASHD (arteriosclerotic heart disease) Code(s): I25.10 - ATHSCL HEART DISEASE OF [place] CORONARY ARTERY W/O ANG PCTRS (7) Pleural effusion Code(s): J90 - PLEURAL EFFUSION, NOT ELSEWHERE CLASSIFIED Assessment/Plan IMP: CHF Bilateral Pleural effusion: S/P placement of a right sided pleural decompression catheter. Pleural studies pending AMS Elevated troponin likely due to demand ischemia Dementia AFib with RVR HTN PLAN: ABX per ID O2 as needed Aspiration precautions Follow daily CXR while pleural catheter is in place pleural fluid chemistries pending DR SPENCER
--- NOTE | 2018-01-30 11:58 | PN ---
Progress Note (short form) - Note Progress Note: cc: alt ms s: alert, not answering questions appropriately, s/p R pleural decompression catheter Current Medications Apixaban (Eliquis -) 5 mg PO BID [facility] Last Admin: 01/29/18 09:03 Dose: 5 mg Atorvastatin Calcium (Lipitor -) 10 mg PO HS [facility] Last Admin: 01/28/18 21:24 Dose: 10 mg Ceftriaxone Sodium 2 gm/ (Dextrose) 100 mls @ 200 mls/hr IVPB DAILY [facility]; Protocol Last Admin: 01/29/18 09:03 Dose: 200 mls/hr Sodium Chloride (Normal Saline -) 1,000 mls @ 70 mls/hr IV ASDIR [facility] Last Admin: 01/28/18 14:09 Dose: 70 mls/hr Metoprolol Tartrate (Lopressor -) 25 mg PO TID [facility] Last Admin: 01/29/18 05:48 Dose: Not Given Metoprolol Tartrate (Lopressor Injection -) 5 mg IVPUSH Q8H PRN PRN Reason: TACHYCARDIA Last Admin: 01/29/18 01:57 Dose: 5 mg Pantoprazole Sodium (Protonix Iv) 40 mg IVPUSH DAILY [facility] Last Admin: 01/29/18 09:03 Dose: 40 mg Vital Signs: Vital Signs Period Temp Pulse Resp BP Sys/Melchor Pulse Ox Last 24 Hr 96.3 F-98.1 F 90-141 16-22 102-138/54-87 97-100 Constitutional: Yes: Well Nourished, No Distress Eyes: No: Sclera Icterus HENT: No: Nasal Congestion Neck: No: Decreased ROM Respiratory: Yes: CTA Bilaterally (anteriorly, poor effort). No: Accessory Muscle Use, Rales, Wheezes Gastrointestinal: Yes: Normal Bowel Sounds. No: Distention, Hepatomegaly, Palpable Mass, Tenderness Cardiovascular: Yes: Pulse Irregular JVD: No Carotid Bruit: No PMI: Non-Displaced Heart Sounds: Yes: S1, S2. No: Gallop Murmur: No: Systolic Murmur, Diastolic Murmur Musculoskeletal: Yes: Other (No kyphosis) Extremities: No: Cool, Cyanosis Edema: casey pedal edema Peripheral Pulses: 2+ Left Carotid, 2+ Right Carotid, 2+ Left Doralis Pedis, 2+ Right Dorsalis Pedis Integumentary: No: Jaundice Neurological: No: Alert, Oriented (x3), Seizure Psychiatric: No: Agitated Assessment/Plan ECG 01/27 (ER): rapid afib (135 bpm); nl axis. no path q's. nonsp TWAs (much improved ST-Ts vs prior 04/2017) CT chest: moderate to large bilat effusion with adjacent consolidation/atx. thickened interstitial septa c/w venous congestion. atx and infiltrates RML. ascending aorta 4.[address] head: no acute pathology or blood Echo 03/18: 1. Atrial fibrillation, with HRs ranging from 83-123 bpm (mostly in 90s-110s). 2. The left ventricular size is normal. 3. LA pressure is elevated. 4. Assessment of LVEF is confounded by atrial fibrillation rhythm with very variable R-R intervals. When analyzing beats occurring during average R-R intervals, EF appears to be yagprv-fy-ujnsyhwoft reduced, in the range of 45%. Global hypokinesis present. 5. The right ventricle is normal in size and function. 6. Left atrium is severely dilated by volume. 7. The right atrium is mildly enlarged. 8. Trace amount of aortic regurgitation. 9. Moderate mitral regurgitation is present (central jet). Estimated regurgitant volume = 22 cc, ERO 0.15 cm2. 10. Moderate tricuspid regurgitation present. (No systolic flow reversal present in hepatic vein.) 11. Unable to estimate RVSP due to inadequate TR jet spectral doppler profile ( it is at least 35 mmHg). 12. Normal inferior vena cava with normal inspiratory collapse consistent with estimated right atrial pressure of 3 mmHg. 13. There is a trivial pericardial effusion present, consistent with physiologic fluid level. Holter 02/16: Afib, not controlled: average 107, max 145, 12 hours with mean > 100 bpm. no mila's MPI 2014 (persantine): no ischemia; (diaphragmatic attenuation artifact); nl EF , no RWMA tele: afib rates 120s, frequent episodes 140s-150s echo 12/2017 EF 30-35%, RV nl size and function, LA/RA mildly dilated, mild to mod MR, mild TR, mild AR, small pericardal effusion altered MS, lactic acidosis: -hypothermic, lactic acid elevated...? infection. RML infiltrate on CT chest--r/ o PNA. 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 B and U cx's pending -per hospitalist, consider ID consult if indicated -no acute bleed or stroke or other pathology on CT head YOGI: -baseline creat 1.3-1.4 -YOGI here ? vol depletion based on family's provided hx -creat 2.0-->trending down -IVF - reports "blood in stool" at home, ? details. not anemic here. check stool occult blood persistent afib: - chronic uncontrolled rates with new-onset mild tachymyopathy on echo 03/18. - rate control c/b low sbp's (sbp's typically 80s-90s) and symptomatic orthostatic hypotension. 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 - lopressor incr'd to tid as outpt early 2017 with better HR control, but had to cut back dose recently due to BPs in 80s-90 with slight orthostatic drop in office. - HRs have remained reasonable in office, may increase here as pt has h/o agitated sundowning in hospital - will continue regular outpt f/u of rate control as doing, and if further LVEF decline despite max tolerated AVN gale regimen, will add amio and then consider AVN ablation/PM - fludrocortisone for BP support - balance is poor, and appears to be the major source of prior h/o multiple falls. however he has been very cautious and had avoided falls for many months now, until recent episode at home several weeks ago. - CHADS VASC 3. per Dr. Fay: previous outpt discussions with pt//dtr in past regarding risks/benefits of AC (with falls/ICH risk), aspirin alone (with incr'd embolic CVA risk) and Watchman device: they have declined Watchman and opted for continued AC with falls precautions for now. - not anemic here, no signs bleeding. - con't eliquis (5 bid if creatinine comes back to <1.5...will consider 2.5 bid if creat remains 1.3-1.5 range and remains hi falls risk as outpt) - rates improving, has occ RVR 120s-140s. BP stable, increase metoprolol to 37.5 mg TID for improved rate control cardiomyopathy, ? acute mixed syst/diast CHF: - 03/2017 with newly depressed LVEF on echo, moderate MR--presumed related tachymyopathy. - no prior clinical chf. - currently with nonspecific sx's (alt MS), but CT chest showing signif bilat effusions and suggestion of interstitial edema suspected - BNP 14K, difficult to interpret in setting of signif reduced GFR (no priors available) - EF 30-35% on echo here, lower than prior - had been receiving IVF for YOGI, dc'ed - low dose BB as tolerates. low bp will not tolerate MAJOR/ARB - hold diuretics (baseline renal insufficiency, orthostatic hypotension), monitor - s/p right pleural decompression catheter, pulm following CAD s/p IN and prior PCI's, elev troponin: - trop indeterminate range with flat trend x 3, now c/w ACS. ECG no isch changes - prior patent mlad and Lcx stent with ? residual rca disease (but no ischemia on subsequent stress testing). last stent 2005. - no need for additional ASA on top of AC given stable CAD history, pt's advanced age, bleeding risk/falls risk, per recent expert consensus statements. - con't statin (on livalo at home, prior statin intolerances) positional light-headedness/orthostatic hypotension/chronic dysequilibrium/ repeated falls: - no recent falls - midodrine and fludrocortisone previously tried, then held due to pt/ preferences (concerned about s.e. potential of all new meds) and lack of clear efficacy - fludrocort resumed recently for bp's in 80s persistently
[2018-01-30 12:48] LABS: TOTAL PROTEIN,PLEURAL FLUID 1.6
--- NOTE | 2018-01-30 14:29 | PN ---
Progress Note (short form) - Note Progress Note: had an ensure for lunch told me he didn't feel good and to leave him alone Vital Signs Period Temp Pulse Resp BP Sys/Melchor Pulse Ox Last 24 Hr 97.1 F-97.8 F 90-136 18-20 114-138/70-86 98-99 cor-rrr lungs decreased bs at bases, +right chest tube abd soft,nt ext no edema CBC, BMP 01/30/18 06:00 01/30/18 06:00 Microbiology 01/28/18 11:00 Pleural Fluid Gram Stain - Final 01/28/18 11:00 Pleural Fluid Body Fluid Culture - Final NO GROWTH OF AEROBIC ORGANISMS AFTER 48 HOURS INCUBATION 01/28/18 11:00 Pleural Fluid Anaerobic Culture - Final NO ANAEROBES WERE ISOLATED 01/27/18 20:10 Blood - Peripheral Venous Blood Culture - Preliminary NO GROWTH OBTAINED AFTER 48 HOURS, INCUBATION TO CONTINUE FOR 3 DAYS. 01/27/18 20:10 Blood - Peripheral Venous Blood Culture - Preliminary NO GROWTH OBTAINED AFTER 48 HOURS, INCUBATION TO CONTINUE FOR 3 DAYS. 01/27/18 21:58 Urine - Urine Clean Catch Urine Culture - Final Contaminated: Please Repeat 01/28/18 11:00 Urine For Antigen Detection Legionella Antigen - Final 01/28/18 11:00 Urine For Antigen Detection Streptococcus pneumoniae Antigen (M - Final Current Medications Acetaminophen (Tylenol -) 650 mg PO Q6H PRN PRN Reason: FEVER Last Admin: 01/29/18 15:36 Dose: 650 mg Apixaban (Eliquis -) 5 mg PO BID [facility] Last Admin: 01/30/18 10:26 Dose: 5 mg Atorvastatin Calcium (Lipitor -) 10 mg PO HS [facility] Last Admin: 01/29/18 21:20 Dose: 10 mg Ceftriaxone Sodium 2 gm/ (Dextrose) 100 mls @ 200 mls/hr IVPB DAILY [facility]; Protocol Last Admin: 01/30/18 10:26 Dose: 200 mls/hr Metoprolol Tartrate (Lopressor Injection -) 5 mg IVPUSH Q8H PRN PRN Reason: TACHYCARDIA Last Admin: 01/30/18 05:34 Dose: 5 mg Metoprolol Tartrate (Lopressor -) 37.5 mg PO TID [facility] Last Admin: 01/30/18 13:25 Dose: 37.5 mg Pantoprazole Sodium (Protonix Iv) 40 mg IVPUSH DAILY [facility] Last Admin: 01/30/18 10:26 Dose: 40 mg a/p pneumococcal pneumonia fluid not c/w empyema continue rocephin day #3 bilateral pleural effusions- suspect secondary to chf now with chest tube management per pulmonary afib/chf- per cardiology echo shows severely reduced LV function
[2018-01-30] MEDS: ATORVASTATIN CA 10 MG TABLET (FP) PO SCH (22:34)
[2018-01-31] MEDS: METOPROLOL TARTRATE 25 MG TABLET (FP) PO SCH ×3 (06:34→22:43)
[2018-01-31 06:43] LABS: BASO % 0.3 % (0-2.0); EOS % 0.9 % (0-4.5); HEMATOCRIT 45.9 % (35.4-49); HEMOGLOBIN 14.5 GM/dL (11.7-16.9); LYMPH % 5.7 % (8-40); MCH 29.7 pg (25.7-33.7); MCHC 31.5 g/dl (32.0-35.9); MEAN CELL VOLUME 94.4 fl (80-96); MEAN PLT VOLUME 9.6 fl (7.5-11.1); MONO % 10.3 % (3.8-10.2); NEUT % 82.8 % (42.8-82.8); PLATELET COUNT 148 K/MM3 (134-434); RBC 4.86 M/mm3 (4.00-5.60); RDW 15.8 % (11.9-15.9); WHITE BLOOD COUNT 9.9 K/mm3 (4.0-10.0)
[2018-01-31 07:13] LABS: ANION GAP 9 MMOL/L (8-16); BLOOD UREA NITROGEN 33 mg/dL (7-18); CALCIUM 8.9 mg/dL (8.5-10.1); CHLORIDE 109 mmol/L (98-107); CO2 23 mmol/L (21-32); CREATININE 1.5 mg/dL (0.55-1.3); GLUCOSE,RANDOM 102 mg/dL (74-106); POTASSIUM 4.7 mmol/L (3.5-5.1); SODIUM 141 mmol/L (136-145)
[2018-01-31] MEDS ORDERED: DEXTROSE 5%-WATER 100 ML IVPB ONE (08:49)
[2018-01-31] MEDS: CEFTRIAXONE 2 GM in DEXTROSE 5%-WATER 100 ML IVPB SCH (09:19)
[2018-01-31] MEDS: APIXABAN 5 MG TABLET PO SCH ×2 (09:19→22:42)
[2018-01-31] MEDS: PANTOPRAZOLE SODIUM 40 MG VIAL IVPUSH SCH (09:19)
--- NOTE | 2018-01-31 11:13 | PN ---
Progress Note (short form) - Note Progress Note: cc: alt ms s: alert, not answering questions appropriately, s/p R pleural decompression catheter Current Medications Generic Name Dose Route Start Last Admin Trade Name Margarette PRN Reason Stop Dose Admin Acetaminophen 650 mg 01/29/18 15:23 01/29/18 15:36 Tylenol - PO 650 mg Q6H PRN Administration FEVER Apixaban 5 mg 01/28/18 10:00 01/31/18 09:19 Eliquis - PO 5 mg BID [facility] Administration Atorvastatin Calcium 10 mg 01/28/18 22:00 01/30/18 22:34 Lipitor - PO 10 mg HS [facility] Administration Ceftriaxone Sodium 2 gm/ 100 mls @ 200 mls/hr 01/28/18 10:00 01/31/18 09:19 Dextrose IVPB 200 mls/hr DAILY [facility] Administration Protocol Metoprolol Tartrate 5 mg 01/28/18 17:17 01/30/18 23:04 Lopressor Injection - IVPUSH 5 mg Q8H PRN Administration TACHYCARDIA Metoprolol Tartrate 37.5 mg 01/30/18 11:55 01/31/18 06:34 Lopressor - PO 37.5 mg TID [facility] Administration Pantoprazole Sodium 40 mg 01/28/18 10:00 01/31/18 09:19 Protonix Iv IVPUSH 40 mg DAILY [facility] Administration Vital Signs: Vital Signs Period Temp Pulse Resp BP Sys/Melchor Pulse Ox Last 24 Hr 97.2 F-98.3 F 74-145 16-20 109-148/54-85 97-98 Constitutional: Yes: Well Nourished, No Distress Eyes: No: Sclera Icterus Respiratory: Yes: CTA Bilaterally (anteriorly, poor effort). No: Accessory Muscle Use, Rales, Wheezes Gastrointestinal: Yes: Normal Bowel Sounds. No: Distention, Hepatomegaly, Palpable Mass, Tenderness Cardiovascular: Yes: Pulse Irregular JVD: No Heart Sounds: Yes: S1, S2. No: Gallop Murmur: No: Systolic Murmur, Diastolic Murmur Extremities: No: Cool, Cyanosis Edema: casey pedal edema Integumentary: No: Jaundice Neurological: No: awake, confused Psychiatric: No: Agitated CBC, BMP 01/31/18 06:00 01/31/18 06:00 Assessment/Plan ECG 01/27 (ER): rapid afib (135 bpm); nl axis. no path q's. nonsp TWAs (much improved ST-Ts vs prior 04/2017) CT chest: moderate to large bilat effusion with adjacent consolidation/atx. thickened interstitial septa c/w venous congestion. atx and infiltrates RML. ascending aorta 4.[address] head: no acute pathology or blood Echo 03/18: 1. Atrial fibrillation, with HRs ranging from 83-123 bpm (mostly in 90s-110s). 2. The left ventricular size is normal. 3. LA pressure is elevated. 4. Assessment of LVEF is confounded by atrial fibrillation rhythm with very variable R-R intervals. When analyzing beats occurring during average R-R intervals, EF appears to be oegfls-mp-cjsdtplddb reduced, in the range of 45%. Global hypokinesis present. 5. The right ventricle is normal in size and function. 6. Left atrium is severely dilated by volume. 7. The right atrium is mildly enlarged. 8. Trace amount of aortic regurgitation. 9. Moderate mitral regurgitation is present (central jet). Estimated regurgitant volume = 22 cc, ERO 0.15 cm2. 10. Moderate tricuspid regurgitation present. (No systolic flow reversal present in hepatic vein.) 11. Unable to estimate RVSP due to inadequate TR jet spectral doppler profile ( it is at least 35 mmHg). 12. Normal inferior vena cava with normal inspiratory collapse consistent with estimated right atrial pressure of 3 mmHg. 13. There is a trivial pericardial effusion present, consistent with physiologic fluid level. Holter 02/16: Afib, not controlled: average 107, max 145, 12 hours with mean > 100 bpm. no mila's MPI 2014 (persantine): no ischemia; (diaphragmatic attenuation artifact); nl EF , no RWMA tele: afib, rvr at times echo 12/2017 EF 30-35%, RV nl size and function, LA/RA mildly dilated, mild to mod MR, mild TR, mild AR, small pericardal effusion altered MS, lactic acidosis: -hypothermic, lactic acid elevated...? infection. RML infiltrate on CT chest--r/ o PNA. 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 B and U cx's pending -per hospitalist, consider ID consult if indicated -no acute bleed or stroke or other pathology on CT head YOGI: -baseline creat 1.3-1.4 -YOGI here ? vol depletion based on family's provided hx -creat 2.0-->trending down -IVF persistent afib: - chronic uncontrolled rates with new-onset mild tachymyopathy on echo 03/18. - rate control c/b low sbp's (sbp's typically 80s-90s) and symptomatic orthostatic hypotension. 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 - lopressor incr'd to tid as outpt early 2017 with better HR control, but had to cut back dose recently due to BPs in 80s-90 with slight orthostatic drop in office. - HRs have remained reasonable in office, may increase here as pt has h/o agitated sundowning in hospital - will continue regular outpt f/u of rate control as doing, and if further LVEF decline despite max tolerated AVN gale regimen, will add amio and then consider AVN ablation/PM - fludrocortisone for BP support - balance is poor, and appears to be the major source of prior h/o multiple falls. however he has been very cautious and had avoided falls for many months now, until recent episode at home several weeks ago. - CHADS VASC 3. per Dr. Fay: previous outpt discussions with pt//dtr in past regarding risks/benefits of AC (with falls/ICH risk), aspirin alone (with incr'd embolic CVA risk) and Watchman device: they have declined Watchman and opted for continued AC with falls precautions for now. - not anemic here, no signs bleeding. - con't eliquis (5 bid if creatinine comes back to <1.5...will consider 2.5 bid if creat remains 1.3-1.5 range and remains hi falls risk as outpt) -01/31: cont metoprolol to 37.5 mg TID, monitor tele cardiomyopathy, ? acute mixed syst/diast CHF: - 03/2017 with newly depressed LVEF on echo, moderate MR--presumed related tachymyopathy. - no prior clinical chf. - currently with nonspecific sx's (alt MS), but CT chest showing signif bilat effusions and suggestion of interstitial edema suspected - BNP 14K, difficult to interpret in setting of signif reduced GFR (no priors available) - EF 30-35% on echo here, lower than prior - had been receiving IVF for YOGI, dc'ed - low dose BB as tolerates. low bp will not tolerate MAJOR/ARB - hold diuretics (baseline renal insufficiency, orthostatic hypotension), monitor - s/p right pleural decompression catheter, pulm following CAD s/p [place] and prior PCI's, elev troponin: - trop indeterminate range with flat trend x 3, now c/w ACS. ECG no isch changes - prior patent mlad and Lcx stent with ? residual rca disease (but no ischemia on subsequent stress testing). last stent 2005. - no need for additional ASA on top of AC given stable CAD history, pt's advanced age, bleeding risk/falls risk, per recent expert consensus statements. - con't statin (on livalo at home, prior statin intolerances) positional light-headedness/orthostatic hypotension/chronic dysequilibrium/ repeated falls: - no recent falls - midodrine and fludrocortisone previously tried, then held due to pt/ preferences (concerned about s.e. potential of all new meds) and lack of clear efficacy - fludrocort resumed recently for bp's in 80s persistently
--- NOTE | 2018-01-31 12:26 | PN ---
Progress Note (short form) - Note Progress Note: Awake being feed by aide. NAD on NC O2. Minimal output (30 cc) CXR ordered. Intake & Output 01/28/18 01/29/18 01/30/18 01/31/18 23:59 23:59 23:59 23:59 Intake Total 1940 400 780 Output Total 2750 1850 2097 400 Balance -810 -1450 -1317 -400 Weight 145 lb Last Vital Signs Temp Pulse Resp BP Pulse Ox 97.3 F L 109 H 18 117/74 97 01/31/18 10:00 01/31/18 10:00 01/31/18 10:00 01/31/18 10:00 01/31/18 09:00 Active Medications Acetaminophen (Tylenol -) 650 mg PO Q6H PRN PRN Reason: FEVER Last Admin: 01/29/18 15:36 Dose: 650 mg Apixaban (Eliquis -) 5 mg PO BID [facility] Last Admin: 01/31/18 09:19 Dose: 5 mg Atorvastatin Calcium (Lipitor -) 10 mg PO HS [facility] Last Admin: 01/30/18 22:34 Dose: 10 mg Ceftriaxone Sodium 2 gm/ (Dextrose) 100 mls @ 200 mls/hr IVPB DAILY [facility]; Protocol Last Admin: 01/31/18 09:19 Dose: 200 mls/hr Metoprolol Tartrate (Lopressor Injection -) 5 mg IVPUSH Q8H PRN PRN Reason: TACHYCARDIA Last Admin: 01/30/18 23:04 Dose: 5 mg Metoprolol Tartrate (Lopressor -) 37.5 mg PO TID [facility] Last Admin: 01/31/18 06:34 Dose: 37.5 mg Pantoprazole Sodium (Protonix Iv) 40 mg IVPUSH DAILY [facility] Last Admin: 01/31/18 09:19 Dose: 40 mg Constitutional: Yes: Awake, NAD, Thin Eyes: Yes: WNL HENT: Yes: WNL Neck: Yes: WNL Cardiovascular: Yes: Pulse Irregular, S1, S2 Respiratory: Yes: Diminished, right pleural catheter Gastrointestinal: Yes: Normal Bowel Sounds, Soft Extremities: Yes: WNL Edema: No Labs: Laboratory Results - last 24 hr 01/28/18 01/31/18 01/31/18 11:00 06:00 06:00 WBC 9.9 RBC 4.86 Hgb 14.5 Hct 45.9 MCV 94.4 MCH 29.7 MCHC 31.5 L RDW 15.8 Plt Count 148 D MPV 9.6 Absolute Neuts (auto) 8.2 H Neutrophils % 82.8 Lymphocytes % 5.7 L D Monocytes % 10.3 H Eosinophils % 0.9 Basophils % 0.3 Nucleated RBC % 0 Sodium 141 Potassium 4.7 Chloride 109 H Carbon Dioxide 23 Anion Gap 9 BUN 33 H Creatinine 1.5 H Creat Clearance w eGFR 44.07 Random Glucose 102 Calcium 8.9 Phosphorus 3.0 Magnesium 2.0 Pleural Total Protein 1.6 Pleural LDH 217 Pleural Glucose 91 Pleural Amylase 9 Problem List - Problems (1) Altered mental status Code(s): R41.82 - ALTERED MENTAL STATUS, UNSPECIFIED (2) Elevated troponin I level Code(s): R74.8 - ABNORMAL LEVELS OF OTHER SERUM ENZYMES (3) Pneumonia Code(s): J18.9 - PNEUMONIA, UNSPECIFIED ORGANISM Qualifiers: Pneumonia type: due to Pneumococcus Laterality: right Lung location: middle lobe of lung Qualified Code(s): J13 - Pneumonia due to Streptococcus pneumoniae (4) Atrial fibrillation Code(s): I48.91 - UNSPECIFIED ATRIAL FIBRILLATION Qualifiers: Atrial fibrillation type: chronic Qualified Code(s): I48.2 - Chronic atrial fibrillation (5) Dementia Code(s): F03.90 - UNSPECIFIED DEMENTIA WITHOUT BEHAVIORAL DISTURBANCE Qualifiers: Dementia type: unspecified type Dementia behavioral disturbance: without behavioral disturbance Qualified Code(s): F03.90 - Unspecified dementia without behavioral disturbance (6) ASHD (arteriosclerotic heart disease) Code(s): I25.10 - ATHSCL HEART DISEASE OF [place] CORONARY ARTERY W/O ANG PCTRS (7) Pleural effusion Code(s): J90 - PLEURAL EFFUSION, NOT ELSEWHERE CLASSIFIED Assessment/Plan IMP: CHF Bilateral Pleural effusion: S/P placement of a right sided pleural decompression catheter -> Transudate AMS Elevated troponin likely due to demand ischemia Dementia AFib with RVR HTN PLAN: ABX per ID O2 as needed Aspiration precautions Follow daily CXR while pleural catheter is in place: Pending for today Dr Pardo
--- NOTE | 2018-01-31 12:46 | PN ---
Progress Note, Physician Chief Complaint: Patient speaking but confused today. Cannot obtain subjective. Case d/w Dr Lopes who is his PCP, states patient has history of dementia that has been declining but currently is much worse than baseline. - Current Medication List Current Medications: Active Medications Acetaminophen (Tylenol -) 650 mg PO Q6H PRN PRN Reason: FEVER Last Admin: 01/29/18 15:36 Dose: 650 mg Apixaban (Eliquis -) 5 mg PO BID [facility] Last Admin: 01/31/18 09:19 Dose: 5 mg Atorvastatin Calcium (Lipitor -) 10 mg PO HS [facility] Last Admin: 01/30/18 22:34 Dose: 10 mg Ceftriaxone Sodium 2 gm/ (Dextrose) 100 mls @ 200 mls/hr IVPB DAILY [facility]; Protocol Last Admin: 01/31/18 09:19 Dose: 200 mls/hr Metoprolol Tartrate (Lopressor Injection -) 5 mg IVPUSH Q8H PRN PRN Reason: TACHYCARDIA Last Admin: 01/30/18 23:04 Dose: 5 mg Metoprolol Tartrate (Lopressor -) 37.5 mg PO TID [facility] Last Admin: 01/31/18 06:34 Dose: 37.5 mg Pantoprazole Sodium (Protonix Iv) 40 mg IVPUSH DAILY [facility] Last Admin: 01/31/18 09:19 Dose: 40 mg - Objective Vital Signs: Vital Signs Temperature 36.3 C L 01/31/18 10:00 Pulse Rate 109 H 01/31/18 10:00 Respiratory Rate 18 01/31/18 10:00 Blood Pressure 117/74 01/31/18 10:00 O2 Sat by Pulse Oximetry (%) 97 01/31/18 09:00 Constitutional: Yes: No Distress, Calm Cardiovascular: Yes: Tachycardia, Pulse Irregular. No: Gallop, Murmur, Rub Respiratory: Yes: Regular, CTA Bilaterally, On Nasal O2, Other (chest tube in place, patient not following commands so poor inspiratory effort during exam.). No: Rales, Rhonchi, Wheezes Gastrointestinal: Yes: Normal Bowel Sounds, Soft. No: Distention, Tenderness Extremities: Yes: WNL Edema: No Labs: CBC, BMP 01/31/18 06:00 01/31/18 06:00 INR, PTT INR 2.53 (0.83-1.09) H 01/27/18 20:10 Problem List - Problems (1) Pneumonia Code(s): J18.9 - PNEUMONIA, UNSPECIFIED ORGANISM Qualifiers: Pneumonia type: due to Pneumococcus Laterality: right Lung location: middle lobe of lung Qualified Code(s): J13 - Pneumonia due to Streptococcus pneumoniae (2) Acute metabolic encephalopathy Code(s): G93.41 - METABOLIC ENCEPHALOPATHY (3) CHF exacerbation Code(s): I50.9 - HEART FAILURE, UNSPECIFIED Qualifiers: Heart failure type: combined systolic and diastolic Qualified Code(s): I50.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 (4) Pleural effusion Code(s): J90 - PLEURAL EFFUSION, NOT ELSEWHERE CLASSIFIED (5) Sepsis Code(s): A41.9 - SEPSIS, UNSPECIFIED ORGANISM (6) Acute renal failure Code(s): N17.9 - ACUTE KIDNEY FAILURE, UNSPECIFIED Qualifiers: Acute renal failure type: unspecified Qualified Code(s): N17.9 - Acute kidney failure, unspecified (7) Atrial fibrillation Code(s): I48.91 - UNSPECIFIED ATRIAL FIBRILLATION Qualifiers: Atrial fibrillation type: chronic Qualified Code(s): I48.2 - Chronic atrial fibrillation (8) CKD (chronic kidney disease) stage 3, GFR 30-59 ml/min Code(s): N18.3 - CHRONIC KIDNEY DISEASE, STAGE 3 (MODERATE) (9) Dementia Code(s): F03.90 - UNSPECIFIED DEMENTIA WITHOUT BEHAVIORAL DISTURBANCE Qualifiers: Dementia type: unspecified type Dementia behavioral disturbance: without behavioral disturbance Qualified Code(s): F03.90 - Unspecified dementia without behavioral disturbance Assessment/Plan (1) Pneumonia Assessment/Plan: -ID following -continue rocephin day 4 Code(s): J18.9 - PNEUMONIA, UNSPECIFIED ORGANISM Qualifiers: Pneumonia type: due to Pneumococcus Laterality: right Lung location: middle lobe of lung Qualified Code(s): J13 - Pneumonia due to Streptococcus pneumoniae (2) Acute metabolic encephalopathy Assessment/Plan: -secondary to pneumonia -continue treatment -not at baseline per PCP Code(s): G93.41 - METABOLIC ENCEPHALOPATHY (3) CHF exacerbation Assessment/Plan: -cause of pleural effusions -holding diuretics -cardiology note reviewed Code(s): I50.9 - HEART FAILURE, UNSPECIFIED Qualifiers: Heart failure type: combined systolic and diastolic Qualified Code(s): I50.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 (4) Pleural effusion Assessment/Plan: -s/p chest tube -transudative fluid -pulmonary note reviewed -chest x-ray pending Code(s): J90 - PLEURAL EFFUSION, NOT ELSEWHERE CLASSIFIED (5) Sepsis Assessment/Plan: -resolved -continue rocephin Code(s): A41.9 - SEPSIS, UNSPECIFIED ORGANISM (6) Acute renal failure Assessment/Plan: -now at baseline -monitor Code(s): N17.9 - ACUTE KIDNEY FAILURE, UNSPECIFIED Qualifiers: Acute renal failure type: unspecified Qualified Code(s): N17.9 - Acute kidney failure, unspecified (7) Atrial fibrillation Assessment/Plan: -continue lopressor -continue eliquis Code(s): I48.91 - UNSPECIFIED ATRIAL FIBRILLATION Qualifiers: Atrial fibrillation type: chronic Qualified Code(s): I48.2 - Chronic atrial fibrillation (8) CKD (chronic kidney disease) stage 3, GFR 30-59 ml/min Assessment/Plan: -at baseline Code(s): N18.3 - CHRONIC KIDNEY DISEASE, STAGE 3 (MODERATE) (9) Dementia Assessment/Plan: -still with AMS -monitor for improvement Code(s): F03.90 - UNSPECIFIED DEMENTIA WITHOUT BEHAVIORAL DISTURBANCE Qualifiers: Dementia type: unspecified type Dementia behavioral disturbance: without behavioral disturbance Qualified Code(s): F03.90 - Unspecified dementia without behavioral disturbance
--- NOTE | 2018-01-31 17:04 | PN ---
Progress Note (short form) - Note Progress Note: more verbal but you have to wake him up c/o back pain- reports chronic back pain Vital Signs Period Temp Pulse Resp BP Sys/Melchor Pulse Ox Last 24 Hr 97.2 F-98.3 F 74-145 18-20 109-148/54-85 97-98 cor-rrr lungs decreased bs atr bases right chest tube abd soft,nt ext no edema CBC, BMP 01/31/18 06:00 01/31/18 06:00 Microbiology 01/27/18 20:10 Blood - Peripheral Venous Blood Culture - Preliminary NO GROWTH OBTAINED AFTER 72 HOURS, INCUBATION TO CONTINUE FOR 2 DAYS. 01/27/18 20:10 Blood - Peripheral Venous Blood Culture - Preliminary NO GROWTH OBTAINED AFTER 72 HOURS, INCUBATION TO CONTINUE FOR 2 DAYS. 01/28/18 11:00 Pleural Fluid Gram Stain - Final 01/28/18 11:00 Pleural Fluid Body Fluid Culture - Final NO GROWTH OF AEROBIC ORGANISMS AFTER 48 HOURS INCUBATION 01/28/18 11:00 Pleural Fluid Anaerobic Culture - Final NO ANAEROBES WERE ISOLATED 01/27/18 21:58 Urine - Urine Clean Catch Urine Culture - Final Contaminated: Please Repeat 01/28/18 11:00 Urine For Antigen Detection Legionella Antigen - Final 01/28/18 11:00 Urine For Antigen Detection Streptococcus pneumoniae Antigen (M - Final a/p pneumococcal pneumonia fluid not c/w empyema continue rocephin day #4 bilateral pleural effusions- suspect secondary to chf now with chest tube - fluid c/w transudate management per pulmonary afib/chf- per cardiology echo shows severely reduced LV function d/w daughter and at bedside
[2018-01-31] MEDS: ACETAMINOPHEN 325 MG TABLET (FP) PO PRN (17:15)
[2018-01-31] MEDS: ATORVASTATIN CA 10 MG TABLET (FP) PO SCH (22:42)
[2018-01-31] MEDS: METOPROLOL TARTRATE 5 MG/5 ML VIAL IVPUSH PRN (22:44)
[2018-01-31 23:59] LABS: ANION GAP 8 MMOL/L (8-16); BLOOD UREA NITROGEN 33 mg/dL (7-18); CALCIUM 9.2 mg/dL (8.5-10.1); CHLORIDE 110 mmol/L (98-107); CO2 28 mmol/L (21-32); CREATININE 1.5 mg/dL (0.55-1.3); GLUCOSE,RANDOM 139 mg/dL (74-106); POTASSIUM 5.3 mmol/L (3.5-5.1); SODIUM 145 mmol/L (136-145)
[2018-02-01] MEDS ORDERED: INSULIN REGULAR HUMAN 100 UNITS/ML *VIAL SQ ONE (02:00)
[2018-02-01] MEDS ORDERED: DEXTROSE 50%-WATER - 25 GM/50 ML VIAL IVPUSH ONE (02:01)
[2018-02-01] MEDS ORDERED: DEXTROSE 50%-WATER 25 GM/50 ML DISP.SYRIN ONE (02:35)
[2018-02-01] MEDS ORDERED: ENOXAPARIN NA (PORCINE) 100 MG/1 ML DISP.SYRIN SQ ONE ×2 (03:17→04:15)
[2018-02-01] MEDS ORDERED: ASPIRIN 300 MG SUPP.RECT PR ONE (03:23)
--- NOTE | 2018-02-01 03:29 | HOSP ---
Subjective - Review of Symptoms Events since last encounter: Per Dr. Blanc group f/u troponin. The level came back at 2.24. We ordered a stat EKG. Cardiology was consulted and per Dr. Cortez, ASA 300 TN was ordered and 100 mg lovenox per patients creatinine. Patient refused his pm dose of clopidogrel. Patient altered and denied having any chest pain. Physical Examination Vital Signs: Vital Signs Temperature 97.4 F L 02/01/18 01:33 Pulse Rate 133 H 02/01/18 01:33 Respiratory Rate 20 02/01/18 01:33 Blood Pressure 128/87 02/01/18 01:33 O2 Sat by Pulse Oximetry (%) 97 01/31/18 21:00 Labs: CBC, BMP 01/31/18 06:00 01/31/18 23:20
[2018-02-01] MEDS: METOPROLOL TARTRATE 25 MG TABLET (FP) PO SCH (05:55)
[2018-02-01] MEDS: METOPROLOL TARTRATE 5 MG/5 ML VIAL IVPUSH PRN ×2 (05:56→10:41)
[2018-02-01 07:00] LABS: BASO % 0.3 % (0-2.0); EOS % 0.5 % (0-4.5); HEMATOCRIT 46.9 % (35.4-49); HEMOGLOBIN 14.7 GM/dL (11.7-16.9); LYMPH % 5.8 % (8-40); MCH 29.8 pg (25.7-33.7); MCHC 31.2 g/dl (32.0-35.9); MEAN CELL VOLUME 95.5 fl (80-96); MEAN PLT VOLUME 9.9 fl (7.5-11.1); MONO % 11.5 % (3.8-10.2); NEUT % 81.9 % (42.8-82.8); PLATELET COUNT 148 K/MM3 (134-434); RBC 4.92 M/mm3 (4.00-5.60); RDW 16.1 % (11.9-15.9); WHITE BLOOD COUNT 12.1 K/mm3 (4.0-10.0)
[2018-02-01 07:31] LABS: ANION GAP 11 MMOL/L (8-16); BLOOD UREA NITROGEN 29 mg/dL (7-18); CALCIUM 9.3 mg/dL (8.5-10.1); CHLORIDE 110 mmol/L (98-107); CO2 24 mmol/L (21-32); CREATININE 1.4 mg/dL (0.55-1.3); GLUCOSE,RANDOM 71 mg/dL (74-106); MAGNESIUM 2.2 mg/dL (1.8-2.4); PHOSPHOROUS 2.9 mg/dL (2.5-4.9); POTASSIUM 4.6 mmol/L (3.5-5.1); SODIUM 144 mmol/L (136-145)
[2018-02-01] MEDS ORDERED: DEXTROSE 5%-WATER 100 ML IVPB ONE (09:08)
[2018-02-01] MEDS: CEFTRIAXONE 2 GM in DEXTROSE 5%-WATER 100 ML IVPB SCH (09:13)
[2018-02-01] MEDS: PANTOPRAZOLE SODIUM 40 MG VIAL IVPUSH SCH (09:16)
[2018-02-01] MEDS: APIXABAN 5 MG TABLET PO SCH (09:53)
[2018-02-01] MEDS ORDERED: ASPIRIN 81 MG CHEWABLE TABLETS PO SCH (10:00)
--- NOTE | 2018-02-01 10:43 | EKG ---
Test Reason : Blood Pressure : / mmHG Vent. Rate : 124 BPM Atrial Rate : 312 BPM P-R Int : 000 ms QRS Dur : 078 ms QT Int : 294 ms P-R-T Axes : 000 034 110 degrees QTc Int : 422 ms ATRIAL FIBRILLATION WITH RAPID VENTRICULAR RESPONSE WITH PREMATURE VENTRICULAR OR ABERRANTLY CONDUCTED COMPLEXES LOW VOLTAGE QRS NONSPECIFIC T WAVE ABNORMALITY ABNORMAL ECG Confirmed by DERRICK MONTEJO MD ([id number]) on 02/01/2018 10:43:24 AM Referred By: Confirmed By:DERRICK MONTEJO MD
--- NOTE | 2018-02-01 11:10 | PN ---
Progress Note, Physician Chief Complaint: Pt lying in bed, confused. unable to obtain - Current Medication List Current Medications: Active Medications Acetaminophen (Tylenol -) 650 mg PO Q6H PRN PRN Reason: FEVER Last Admin: 01/31/18 17:15 Dose: 650 mg Apixaban (Eliquis -) 5 mg PO BID [facility] Last Admin: 02/01/18 09:53 Dose: 5 mg Atorvastatin Calcium (Lipitor -) 10 mg PO HS [facility] Last Admin: 01/31/18 22:42 Dose: Not Given Ceftriaxone Sodium 2 gm/ (Dextrose) 100 mls @ 200 mls/hr IVPB DAILY [facility]; Protocol Last Admin: 02/01/18 09:13 Dose: 200 mls/hr Metoprolol Tartrate (Lopressor Injection -) 5 mg IVPUSH Q8H PRN PRN Reason: TACHYCARDIA Last Admin: 02/01/18 10:41 Dose: 5 mg Metoprolol Tartrate (Lopressor -) 50 mg PO TID [facility] Pantoprazole Sodium (Protonix Iv) 40 mg IVPUSH DAILY [facility] Last Admin: 02/01/18 09:16 Dose: 40 mg - Objective Vital Signs: Vital Signs Temperature 97.6 F 02/01/18 05:59 Pulse Rate 150 H 02/01/18 10:41 Respiratory Rate 20 02/01/18 05:59 Blood Pressure 148/63 02/01/18 05:59 O2 Sat by Pulse Oximetry (%) 97 01/31/18 21:00 Constitutional: Yes: Calm, Thin Cardiovascular: Yes: Pulse Irregular Respiratory: Yes: Diminished, On Nasal O2, Other (right pigtail draining) Gastrointestinal: Yes: WNL, Normal Bowel Sounds, Soft. No: Distention, Tenderness Genitourinary: Yes: Incontinence Edema: No Neurological: Yes: Alert, Confusion Psychiatric: Yes: Alert Labs: CBC, BMP 02/01/18 05:30 02/01/18 05:30 INR, PTT INR 2.53 (0.83-1.09) H 01/27/18 20:10 Assessment/Plan (1) NSTEMI (non-ST elevated myocardial infarction) Assessment/Plan: trop rising, 17 today,continue to trend until peak ekg without changes continue asa/lovenox x 72hrs/statin conservative management per cardiology Code(s): I21.4 - NON-ST ELEVATION (NSTEMI) MYOCARDIAL INFARCTION (2) Pneumonia Assessment/Plan: ceftriaxone day 5 ID following Code(s): J18.9 - PNEUMONIA, UNSPECIFIED ORGANISM Qualifiers: Pneumonia type: due to Pneumococcus Laterality: right Lung location: middle lobe of lung Qualified Code(s): J13 - Pneumonia due to Streptococcus pneumoniae (3) Acute metabolic encephalopathy Assessment/Plan: 2/2 pna treat underlying and monitor for improvement pt still not at baseline Code(s): G93.41 - METABOLIC ENCEPHALOPATHY (4) CHF exacerbation Assessment/Plan: diuretics on hold cardiology following Code(s): I50.9 - HEART FAILURE, UNSPECIFIED Qualifiers: Heart failure type: combined systolic and diastolic Qualified Code(s): I50.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 (5) Pleural effusion Assessment/Plan: s/p chest tube transudative fluid pulm following Code(s): J90 - PLEURAL EFFUSION, NOT ELSEWHERE CLASSIFIED (6) Sepsis Assessment/Plan: improved Code(s): A41.9 - SEPSIS, UNSPECIFIED ORGANISM (7) Acute renal failure Assessment/Plan: improved at baseline Code(s): N17.9 - ACUTE KIDNEY FAILURE, UNSPECIFIED Qualifiers: Acute renal failure type: unspecified Qualified Code(s): N17.9 - Acute kidney failure, unspecified (8) Atrial fibrillation Assessment/Plan: rate uncontrolled continue metoprolol brianne/prn eliquis on hold, on lovenox Code(s): I48.91 - UNSPECIFIED ATRIAL FIBRILLATION Qualifiers: Atrial fibrillation type: chronic Qualified Code(s): I48.2 - Chronic atrial fibrillation (9) CKD (chronic kidney disease) stage 3, GFR 30-59 ml/min Assessment/Plan: at baseline Code(s): N18.3 - CHRONIC KIDNEY DISEASE, STAGE 3 (MODERATE) (10) Dementia Assessment/Plan: not at baseline Code(s): F03.90 - UNSPECIFIED DEMENTIA WITHOUT BEHAVIORAL DISTURBANCE Qualifiers: Dementia type: unspecified type Dementia behavioral disturbance: without behavioral disturbance Qualified Code(s): F03.90 - Unspecified dementia without behavioral disturbance
--- NOTE | 2018-02-01 11:23 | PN ---
Progress Note (short form) - Note Progress Note: cc: alt ms s: alert, not answering questions appropriately, s/p R pleural decompression catheter Current Medications Generic Name Dose Route Start Last Admin Trade Name Margarette PRN Reason Stop Dose Admin Acetaminophen 650 mg 01/29/18 15:23 01/31/18 17:15 Tylenol - PO 650 mg Q6H PRN Administration FEVER Aspirin 81 mg 02/02/18 10:00 Asa - PO DAILY [facility] Atorvastatin Calcium 10 mg 01/28/18 22:00 01/31/18 22:42 Lipitor - PO Not Given HS [facility] Enoxaparin Sodium 65 mg 02/01/18 22:00 Lovenox - SQ BID [facility] Ceftriaxone Sodium 2 gm/ 100 mls @ 200 mls/hr 01/28/18 10:00 02/01/18 09:13 Dextrose IVPB 200 mls/hr DAILY [facility] Administration Protocol Metoprolol Tartrate 5 mg 01/28/18 17:17 02/01/18 10:41 Lopressor Injection - IVPUSH 5 mg Q8H PRN Administration TACHYCARDIA Metoprolol Tartrate 50 mg 02/01/18 09:15 Lopressor - PO TID [facility] Pantoprazole Sodium 40 mg 01/28/18 10:00 02/01/18 09:16 Protonix Iv IVPUSH 40 mg DAILY [facility] Administration Vital Signs: Vital Signs Period Temp Pulse Resp BP Sys/Melchor Pulse Ox Last 24 Hr 97.4 F-97.6 F 109-150 18-20 122-148/63-100 97 Constitutional: Yes: Well Nourished, No Distress Eyes: No: Sclera Icterus Respiratory: Yes: CTA Bilaterally (anteriorly, poor effort). No: Accessory Muscle Use, Rales, Wheezes Gastrointestinal: Yes: Normal Bowel Sounds. No: Distention, Hepatomegaly, Palpable Mass, Tenderness Cardiovascular: Yes: Pulse Irregular JVD: No Heart Sounds: Yes: S1, S2. No: Gallop Murmur: No: Systolic Murmur, Diastolic Murmur Extremities: No: Cool, Cyanosis Edema: casey pedal edema Integumentary: No: Jaundice Neurological: No: awake, confused Psychiatric: No: Agitated Laboratory Last Values WBC 12.1 K/mm3 (4.0-10.0) H 02/01/18 05:30 RBC 4.92 M/mm3 (4.00-5.60) 02/01/18 05:30 Hgb 14.7 GM/dL (11.7-16.9) 02/01/18 05:30 Hct 46.9 % (35.4-49) 02/01/18 05:30 MCV 95.5 fl (80-96) 02/01/18 05:30 MCH 29.8 pg (25.7-33.7) 02/01/18 05:30 MCHC 31.2 g/dl (32.0-35.9) L 02/01/18 05:30 RDW 16.1 % (11.9-15.9) H 02/01/18 05:30 Plt Count 148 K/MM3 (134-434) 02/01/18 05:30 MPV 9.9 fl (7.5-11.1) 02/01/18 05:30 Absolute Neuts (auto) 10.0 K/mm3 (1.5-8.0) H 02/01/18 05:30 Neutrophils % 81.9 % (42.8-82.8) 02/01/18 05:30 Lymphocytes % 5.8 % (8-40) L 02/01/18 05:30 Monocytes % 11.5 % (3.8-10.2) H 02/01/18 05:30 Eosinophils % 0.5 % (0-4.5) 02/01/18 05:30 Basophils % 0.3 % (0-2.0) 02/01/18 05:30 Nucleated RBC % 0 % (0-0) 02/01/18 05:30 PT with INR 30.10 SEC (9.7-13.0) H 01/27/18 20:10 INR 2.53 (0.83-1.09) H 01/27/18 20:10 PTT (Actin FS) 34.4 SECONDS (25.2-36.5) 01/27/18 20:10 VBG pH 7.32 (7.32-7.42) 01/27/18 20:10 POC VBG pCO2 47.9 mmHg (38-52) 01/27/18 20:10 POC VBG pO2 22.1 mmHg (28-48) L D 01/27/18 20:10 Mixed VBG HCO3 24.4 meq/L (19-25) 01/27/18 20:10 Sodium 144 mmol/L (136-145) 02/01/18 05:30 Potassium 4.6 mmol/L (3.5-5.1) 02/01/18 05:30 Chloride 110 mmol/L (98-107) H 02/01/18 05:30 Carbon Dioxide 24 mmol/L (21-32) 02/01/18 05:30 Anion Gap 11 MMOL/L (8-16) 02/01/18 05:30 BUN 29 mg/dL (7-18) H 02/01/18 05:30 Creatinine 1.4 mg/dL (0.55-1.3) H 02/01/18 05:30 Creat Clearance w eGFR 47.72 (>60) 02/01/18 05:30 POC Glucometer 140.65346 UNITS (80-120) 01/28/18 03:40 Random Glucose 71 mg/dL (74-106) L 02/01/18 05:30 Lactic Acid 1.5 mmol/L (0.4-2.0) 01/28/18 03:31 Calcium 9.3 mg/dL (8.5-10.1) 02/01/18 05:30 Phosphorus 2.9 mg/dL (2.5-4.9) 02/01/18 05:30 Magnesium 2.2 mg/dL (1.8-2.4) 02/01/18 05:30 Total Bilirubin 0.6 mg/dL (0.2-1) 01/30/18 06:00 AST 11 U/L (15-37) L 01/30/18 06:00 ALT 24 U/L (13-61) 01/30/18 06:00 Alkaline Phosphatase 104 U/L (45-117) 01/30/18 06:00 Creatine Kinase 143 IU/L (26-308) 01/31/18 23:20 Creatine Kinase Index 7.5 % (0.0-5.0) H* 01/28/18 01:09 CK-MB (CK-2) 16.4 ng/mL (0.5-3.6) H 01/28/18 01:09 Troponin I 5.95 ng/ml (0.00-0.05) H* 02/01/18 05:30 B-Natriuretic Peptide 33223.8 pg/ml (5-450) H 01/27/18 21:10 Total Protein 6.0 g/dl (6.4-8.2) L 01/30/18 06:00 Albumin 3.0 g/dl (3.4-5.0) L 01/30/18 06:00 Urine Color Red 01/27/18 21:58 Urine Appearance Cloudy 01/27/18 21:58 Urine pH 8.0 (5.0-8.0) 01/27/18 21:58 Ur Specific [place] 1.017 (1.010-1.035) 01/27/18 21:58 Urine Protein 3+ (NEGATIVE) H 01/27/18 21:58 Urine Glucose (UA) Negative (NEGATIVE) 01/27/18 21:58 Urine Ketones Negative (NEGATIVE) 01/27/18 21:58 Urine Blood 2+ (NEGATIVE) H 01/27/18 21:58 Urine Nitrite Negative (NEGATIVE) 01/27/18 21:58 Urine Bilirubin Negative (<2.0 mg/dL) 01/27/18 21:58 Urine Urobilinogen Negative mg/dL (0.2-1.0) 01/27/18 21:58 Ur Leukocyte Esterase 1+ (NEGATIVE) H 01/27/18 21:58 Urine WBC (Auto) 122 /hpf (3-5) 01/27/18 21:58 Urine RBC (Auto) 429 /hpf (0-3) 01/27/18 21:58 Triple Phos Crystals Rare /hpf (NONE SEEN) 01/27/18 21:58 Urine Bacteria Rare /hpf (NONE SEEN) 01/27/18 21:58 Hyaline Casts 8 /lpf 01/27/18 21:58 Urine Mucus Few 01/27/18 21:58 Fluid Other Cells % 01/28/18 11:00 Pleural Fluid Source Pleural 01/28/18 11:00 Pleural Color Yellow 01/28/18 11:00 Pleural Appearance Bloody 01/28/18 11:00 Pleural WBC 16 /mm3 01/28/18 11:00 Pleural RBC 2936 /mm3 01/28/18 11:00 Pleural Neutrophils 40 % 01/28/18 11:00 Pleural Lymphocytes 25 % 01/28/18 11:00 Pleural Macrophages 20 % 01/28/18 11:00 Pleural Total Protein 1.6 01/28/18 11:00 Pleural LDH 217 01/28/18 11:00 Pleural Glucose 91 01/28/18 11:00 Pleural Amylase 9 01/28/18 11:00 Assessment/Plan ECG 01/27 (ER): rapid afib (135 bpm); nl axis. no path q's. nonsp TWAs (much improved ST-Ts vs prior 04/2017) CT chest: moderate to large bilat effusion with adjacent consolidation/atx. thickened interstitial septa c/w venous congestion. atx and infiltrates RML. ascending aorta 4.[address] head: no acute pathology or blood Echo 03/18: 1. Atrial fibrillation, with HRs ranging from 83-123 bpm (mostly in 90s-110s). 2. The left ventricular size is normal. 3. LA pressure is elevated. 4. Assessment of LVEF is confounded by atrial fibrillation rhythm with very variable R-R intervals. When analyzing beats occurring during average R-R intervals, EF appears to be hnwmxg-[id number]-nulznimjep reduced, in the range of 45%. Global hypokinesis present. 5. The right ventricle is normal in size and function. 6. Left atrium is severely dilated by volume. 7. The right atrium is mildly enlarged. 8. Trace amount of aortic regurgitation. 9. Moderate mitral regurgitation is present (central jet). Estimated regurgitant volume = 22 cc, ERO 0.15 cm2. 10. Moderate tricuspid regurgitation present. (No systolic flow reversal present in hepatic vein.) 11. Unable to estimate RVSP due to inadequate TR jet spectral doppler profile ( it is at least 35 mmHg). 12. Normal inferior vena cava with normal inspiratory collapse consistent with estimated right atrial pressure of 3 mmHg. 13. There is a trivial pericardial effusion present, consistent with physiologic fluid level. Holter 02/16: Afib, not controlled: average 107, max 145, 12 hours with mean > 100 bpm. no mila's MPI 2014 (persantine): no ischemia; (diaphragmatic attenuation artifact); nl EF , no RWMA tele: afib, rvr at times echo 12/2017 EF 30-35%, RV nl size and function, LA/RA mildly dilated, mild to mod MR, mild TR, mild AR, small pericardal effusion altered MS, lactic acidosis: -hypothermic, lactic acid elevated...? infection. RML infiltrate on CT chest--r/ o PNA. 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 B and U cx's pending -per hospitalist, consider ID consult if indicated -no acute bleed or stroke or other pathology on CT head YOGI: -baseline creat 1.3-1.4 -YOGI here ? vol depletion based on family's provided hx -creat 2.0-->trending down -IVF persistent afib: - chronic uncontrolled rates with new-onset mild tachymyopathy on echo 03/18. - rate control c/b low sbp's (sbp's typically 80s-90s) and symptomatic orthostatic hypotension. 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 - lopressor incr'd to tid as outpt early 2017 with better HR control, but had to cut back dose recently due to BPs in 80s-90 with slight orthostatic drop in office. - HRs have remained reasonable in office, may increase here as pt has h/o agitated sundowning in hospital - will continue regular outpt f/u of rate control as doing, and if further LVEF decline despite max tolerated AVN gale regimen, will add amio and then consider AVN ablation/PM - fludrocortisone for BP support - balance is poor, and appears to be the major source of prior h/o multiple falls. however he has been very cautious and had avoided falls for many months now, until recent episode at home several weeks ago. - CHADS VASC 3. per Dr. Fay: previous outpt discussions with pt//dtr in past regarding risks/benefits of AC (with falls/ICH risk), aspirin alone (with incr'd embolic CVA risk) and Watchman device: they have declined Watchman and opted for continued AC with falls precautions for now. - not anemic here, no signs bleeding. -01/31: cont metoprolol to 37.5 mg TID, monitor tele -02/01: rvr, often refusing meds. will increase lopressor to 50 tid, cont tele. cont ac. was on eliquis but changed to lovenox for ACS as below. cardiomyopathy, ? acute mixed syst/diast CHF: - 03/2017 with newly depressed LVEF on echo, moderate MR--presumed related tachymyopathy. - no prior clinical chf. - currently with nonspecific sx's (alt MS), but CT chest showing signif bilat effusions and suggestion of interstitial edema suspected - BNP 14K, difficult to interpret in setting of signif reduced GFR (no priors available) - EF 30-35% on echo here, lower than prior - had been receiving IVF for YOGI, dc'ed - low dose BB as tolerates. 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 ECG unchanged and pt not complaining of sxs but given sharp rise in trop will treat as nstemi. Cont asa, bb, statin. Will change eliquis temporarily to lovenox for 72 hours. Given his poor functional status and dementia will likely cont with conservative med management. - prior patent mlad and Lcx stent with ? residual rca disease (but no ischemia on subsequent stress testing). last stent 2005. positional light-headedness/orthostatic hypotension/chronic dysequilibrium/ repeated falls: - no recent falls - midodrine and fludrocortisone previously tried, then held due to pt/ preferences (concerned about s.e. potential of all new meds) and lack of clear efficacy - fludrocort resumed recently for bp's in 80s persistently
--- NOTE | 2018-02-01 13:06 | PN ---
Progress Note (short form) - Note Progress Note: PULMONARY DNR/DNI CONFUSED/TROPS ARE RISING PLEURAL FLUID DRAINAGE CONTINUES ON RIGHT VIA PIGTAIL PALE/CHRONICALLY ILL IN APPEARANCE DIMINISHED BREATH SOUNDS BILATERALLY/RIGHT CHEST TUBE PRESENT S1S2 BS+ LESS EDEMA B/L LABS/MEDS/NOTES/IMAGES/MICRO NOTED CHF Bilateral Pleural effusion:Transudate AMS Elevated troponin likely due to demand ischemia Dementia AFib with RVR HTN Pneumococcal pneumonia PLAN: ABX per ID O2 as needed/supportive care Aspiration precautions Goals of care to be addressed prognosis poor R JENNIE HUYNH
[2018-02-01] MEDS: METOPROLOL TARTRATE 50 MG TABLET (FP) PO SCH ×2 (13:53→22:30)
--- NOTE | 2018-02-01 16:44 | PN ---
Progress Note (short form) - Note Progress Note: more verbal but you have to wake him up tachycardia Vital Signs Period Temp Pulse Resp BP Sys/Melchor Pulse Ox Last 24 Hr 97.2 F-97.6 F 128-150 20-20 128-148/63-100 97-97 cor-rrr tachycardic lungs decreased bs at bases right chest tube abd soft,nt ext no edema CBC, BMP 02/01/18 05:30 02/01/18 05:30 Microbiology 01/27/18 20:10 Blood - Peripheral Venous Blood Culture - Preliminary NO GROWTH OBTAINED AFTER 96 HOURS, INCUBATION TO CONTINUE FOR 1 DAYS. 01/27/18 20:10 Blood - Peripheral Venous Blood Culture - Preliminary NO GROWTH OBTAINED AFTER 96 HOURS, INCUBATION TO CONTINUE FOR 1 DAYS. 01/28/18 11:00 Pleural Fluid Gram Stain - Final 01/28/18 11:00 Pleural Fluid Body Fluid Culture - Final NO GROWTH OF AEROBIC ORGANISMS AFTER 48 HOURS INCUBATION 01/28/18 11:00 Pleural Fluid Anaerobic Culture - Final NO ANAEROBES WERE ISOLATED 01/27/18 21:58 Urine - Urine Clean Catch Urine Culture - Final Contaminated: Please Repeat 01/28/18 11:00 Urine For Antigen Detection Legionella Antigen - Final 01/28/18 11:00 Urine For Antigen Detection Streptococcus pneumoniae Antigen (M - Final a/p pneumococcal pneumonia fluid not c/w empyema continue rocephin day #5 bilateral pleural effusions- suspect secondary to chf now with chest tube - fluid c/w transudate management per pulmonary afib/chf- echo shows severely reduced LV function now with positive troponins management per cardiology
[2018-02-01] MEDS: ENOXAPARIN NA (PORCINE) 80 MG/0.8 ML DISP.SYRIN SQ SCH (22:30)
[2018-02-01] MEDS: ATORVASTATIN CA 10 MG TABLET (FP) PO SCH (22:30)
[2018-02-02] MEDS: METOPROLOL TARTRATE 5 MG/5 ML VIAL IVPUSH PRN ×2 (02:57→15:15)
[2018-02-02] MEDS: METOPROLOL TARTRATE 50 MG TABLET (FP) PO SCH ×4 (06:37→21:17)
[2018-02-02 07:01] LABS: BASO % 0.5 % (0-2.0); EOS % 0.6 % (0-4.5); HEMATOCRIT 48.6 % (35.4-49); HEMOGLOBIN 16.2 GM/dL (11.7-16.9); LYMPH % 5.4 % (8-40); MCH 31.7 pg (25.7-33.7); MCHC 33.3 g/dl (32.0-35.9); MEAN CELL VOLUME 95.1 fl (80-96); MEAN PLT VOLUME 10.6 fl (7.5-11.1); MONO % 11.2 % (3.8-10.2); NEUT % 82.3 % (42.8-82.8); PLATELET COUNT 158 K/MM3 (134-434); RBC 5.11 M/mm3 (4.00-5.60); RDW 15.9 % (11.9-15.9); WHITE BLOOD COUNT 9.5 K/mm3 (4.0-10.0)
[2018-02-02 07:25] LABS: ANION GAP 8 MMOL/L (8-16); BLOOD UREA NITROGEN 33 mg/dL (7-18); CALCIUM 9.2 mg/dL (8.5-10.1); CHLORIDE 110 mmol/L (98-107); CO2 26 mmol/L (21-32); CREATININE 1.4 mg/dL (0.55-1.3); GLUCOSE,RANDOM 102 mg/dL (74-106); SODIUM 144 mmol/L (136-145)
--- NOTE | 2018-02-02 07:47 | PN ---
Progress Note, Physician Chief Complaint: Alert but agitated and trying to get out of the bed, still confused - Current Medication List Current Medications: Active Medications Acetaminophen (Tylenol -) 650 mg PO Q6H PRN PRN Reason: FEVER Last Admin: 01/31/18 17:15 Dose: 650 mg Aspirin (Asa -) 81 mg PO DAILY [facility] Atorvastatin Calcium (Lipitor -) 10 mg PO HS [facility] Last Admin: 02/01/18 22:30 Dose: 10 mg Enoxaparin Sodium (Lovenox -) 65 mg SQ BID [facility] Last Admin: 02/01/18 22:30 Dose: 65 mg Ceftriaxone Sodium 2 gm/ (Dextrose) 100 mls @ 200 mls/hr IVPB DAILY [facility]; Protocol Last Admin: 02/01/18 09:13 Dose: 200 mls/hr Metoprolol Tartrate (Lopressor Injection -) 5 mg IVPUSH Q8H PRN PRN Reason: TACHYCARDIA Last Admin: 02/02/18 02:57 Dose: 5 mg Metoprolol Tartrate (Lopressor -) 50 mg PO TID [facility] Last Admin: 02/02/18 06:37 Dose: 50 mg Pantoprazole Sodium (Protonix Iv) 40 mg IVPUSH DAILY [facility] Last Admin: 02/01/18 09:16 Dose: 40 mg - Objective Vital Signs: Vital Signs Temperature 97.0 F L 02/02/18 06:00 Pulse Rate 134 H 02/02/18 06:00 Respiratory Rate 20 02/02/18 06:00 Blood Pressure 145/82 02/02/18 06:00 O2 Sat by Pulse Oximetry (%) 97 02/01/18 21:00 Elderly man not in distress still disoriented and confused HEENT: Mm moist anemia NECK: No JVd No Bruit CHEST: Decrease AE at bases Rt Chest tube CVS: S1S2 Irr tachycardia ABD; No distention non tender, suprapubic cathter at place. EXT: Trace edema feet, Pulses + [employer]IVE G[employer]: more alert but agitated moving all extremities Labs: CBC, BMP 02/02/18 05:30 02/02/18 05:30 INR, PTT INR 2.53 (0.83-1.09) H 01/27/18 20:10 Problem List - Problems (1) Altered mental status Assessment/Plan: most likely Metabolic encephalopathy secondary too hypoxia, uremia and sepsis CT haed no acute changes Code(s): R41.82 - ALTERED MENTAL STATUS, UNSPECIFIED (2) Acute respiratory failure with hypoxia Assessment/Plan: Due to B/L Pleural effusion s/p chest tube Rt ML Pneumonia/ CHF will cont O2 inhalation, U Pneumpcoccal Ag + on Ceftriaxone, ID on the case Code(s): J96.01 - ACUTE RESPIRATORY FAILURE WITH HYPOXIA (3) Sepsis Assessment/Plan: Due to Pneumonia on IV abx Code(s): A41.9 - SEPSIS, UNSPECIFIED ORGANISM (4) Acute renal failure Assessment/Plan: Improving on IV Hydration Code(s): N17.9 - ACUTE KIDNEY FAILURE, UNSPECIFIED Qualifiers: Acute renal failure type: unspecified Qualified Code(s): N17.9 - Acute kidney failure, unspecified (5) Atrial fibrillation Assessment/Plan: Rate poorly controlled will f/u cardiology recommendations Code(s): I48.91 - UNSPECIFIED ATRIAL FIBRILLATION Qualifiers: Atrial fibrillation type: chronic Qualified Code(s): I48.2 - Chronic atrial fibrillation (6) Elevated troponin I level Assessment/Plan: H/O CAD s/p PCI elevated trop probably Demand Ischemia cont B Blockers statin Code(s): R74.8 - ABNORMAL LEVELS OF OTHER SERUM ENZYMES (7) CHF exacerbation Assessment/Plan: HfrEF 35-40% Known case of tachycardia induced Cardiomyopathy lCont Current management as per cardiology consult Code(s): I50.9 - HEART FAILURE, UNSPECIFIED Qualifiers: Heart failure type: combined systolic and diastolic Qualified Code(s): I50.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 (8) CKD (chronic kidney disease) stage 3, GFR 30-59 ml/min Assessment/Plan: Base line CKD stage 3 present with worsening functions Creat 2.0 Code(s): N18.3 - CHRONIC KIDNEY DISEASE, STAGE 3 (MODERATE) (9) Pleural effusion Assessment/Plan: B/L S/p Rt chest tube hemorrhagic will f/u cytology culture and cell count. Code(s): J90 - PLEURAL EFFUSION, NOT ELSEWHERE CLASSIFIED (10) Pneumonia Assessment/Plan: U STreptococcal Ag +, Ct chest shows Rt ML Pneumonia will cont Current abx ID consult F/U Cultures Code(s): J18.9 - PNEUMONIA, UNSPECIFIED ORGANISM Qualifiers: Pneumonia type: due to Pneumococcus Laterality: right Lung location: middle lobe of lung Qualified Code(s): J13 - Pneumonia due to Streptococcus pneumoniae (11) Goals of care, counseling/discussion Assessment/Plan: patient is DNR/DNI, Code(s): Z71.89 - OTHER SPECIFIED COUNSELING (12) Acute metabolic encephalopathy Code(s): G93.41 - METABOLIC ENCEPHALOPATHY (13) Hyperkalemia Code(s): E87.5 - HYPERKALEMIA (14) NSTEMI (non-ST elevated myocardial infarction) Assessment/Plan: Troponin is trending normal cont B Blockers statin. Code(s): I21.4 - NON-ST ELEVATION (NSTEMI) MYOCARDIAL INFARCTION
[2018-02-02] MEDS ORDERED: SODIUM POLYSTYRENE SULFONATE 15 GM/60 ML BOTTLE PO ONE (08:15)
[2018-02-02] MEDS ORDERED: DEXTROSE 5%-WATER 100 ML IVPB ONE (09:18)
[2018-02-02] MEDS: ENOXAPARIN NA (PORCINE) 80 MG/0.8 ML DISP.SYRIN SQ SCH ×2 (09:47→21:17)
[2018-02-02] MEDS: PANTOPRAZOLE SODIUM 40 MG VIAL IVPUSH SCH (09:47)
[2018-02-02] MEDS: ASPIRIN 81 MG CHEWABLE TABLETS PO SCH (09:47)
[2018-02-02] MEDS: CEFTRIAXONE 2 GM in DEXTROSE 5%-WATER 100 ML IVPB SCH (09:48)
--- NOTE | 2018-02-02 11:21 | PN ---
Progress Note (short form) - Note Progress Note: Progress Note: cc: alt ms s: alert, not answering questions appropriately, Current Medications Acetaminophen (Tylenol -) 650 mg PO Q6H PRN PRN Reason: FEVER Last Admin: 01/31/18 17:15 Dose: 650 mg Aspirin (Asa -) 81 mg PO DAILY [facility] Last Admin: 02/02/18 09:47 Dose: 81 mg Atorvastatin Calcium (Lipitor -) 10 mg PO HS [facility] Last Admin: 02/01/18 22:30 Dose: 10 mg Enoxaparin Sodium (Lovenox -) 65 mg SQ BID [facility] Last Admin: 02/02/18 09:47 Dose: 65 mg Ceftriaxone Sodium 2 gm/ (Dextrose) 100 mls @ 200 mls/hr IVPB DAILY [facility]; Protocol Last Admin: 02/02/18 09:48 Dose: 200 mls/hr Metoprolol Tartrate (Lopressor Injection -) 5 mg IVPUSH Q8H PRN PRN Reason: TACHYCARDIA Last Admin: 02/02/18 02:57 Dose: 5 mg Metoprolol Tartrate (Lopressor -) 50 mg PO TID [facility] Last Admin: 02/02/18 06:37 Dose: 50 mg Pantoprazole Sodium (Protonix Iv) 40 mg IVPUSH DAILY [facility] Last Admin: 02/02/18 09:47 Dose: 40 mg Vital Signs: Vital Signs Period Temp Pulse Resp BP Sys/Melchor Pulse Ox Last 24 Hr 97.0 F-98.5 F 124-140 18-20 102-145/68-82 97 Constitutional: Yes: Well Nourished, No Distress Eyes: No: Sclera Icterus Respiratory: Yes: CTA Bilaterally (anteriorly, poor effort). No: Accessory Muscle Use, Rales, Wheezes Gastrointestinal: Yes: Normal Bowel Sounds. No: Distention, Hepatomegaly, Palpable Mass, Tenderness Cardiovascular: Yes: Pulse Irregular JVD: No Heart Sounds: Yes: S1, S2. No: Gallop Murmur: No: Systolic Murmur, Diastolic Murmur Extremities: No: Cool, Cyanosis Edema: casey pedal edema Integumentary: No: Jaundice Neurological: No: awake, confused Psychiatric: No: Agitated Assessment/Plan ECG 01/27 (ER): rapid afib (135 bpm); nl axis. no path q's. nonsp TWAs (much improved ST-Ts vs prior 04/2017) CT chest: moderate to large bilat effusion with adjacent consolidation/atx. thickened interstitial septa c/w venous congestion. atx and infiltrates RML. ascending aorta 4.[address] head: no acute pathology or blood Echo 03/18: 1. Atrial fibrillation, with HRs ranging from 83-123 bpm (mostly in 90s-110s). 2. The left ventricular size is normal. 3. LA pressure is elevated. 4. Assessment of LVEF is confounded by atrial fibrillation rhythm with very variable R-R intervals. When analyzing beats occurring during average R-R intervals, EF appears to be [id number] reduced, in the range of 45%. Global hypokinesis present. 5. The right ventricle is normal in size and function. 6. Left atrium is severely dilated by volume. 7. The right atrium is mildly enlarged. 8. Trace amount of aortic regurgitation. 9. Moderate mitral regurgitation is present (central jet). Estimated regurgitant volume = 22 cc, ERO 0.15 cm2. 10. Moderate tricuspid regurgitation present. (No systolic flow reversal present in hepatic vein.) 11. Unable to estimate RVSP due to inadequate TR jet spectral doppler profile ( it is at least 35 mmHg). 12. Normal inferior vena cava with normal inspiratory collapse consistent with estimated right atrial pressure of 3 mmHg. 13. There is a trivial pericardial effusion present, consistent with physiologic fluid level. Holter 02/16: Afib, not controlled: average 107, max 145, 12 hours with mean > 100 bpm. no mila's MPI 2014 (persantine): no ischemia; (diaphragmatic attenuation artifact); nl EF , no RWMA tele: afib, rvr at times echo 12/2017 EF 30-35%, RV nl size and function, LA/RA mildly dilated, mild to mod MR, mild TR, mild AR, small pericardal effusion altered MS, lactic acidosis: -hypothermic, lactic acid elevated...? infection. RML infiltrate on CT chest--r/ o PNA. 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 B and U cx's pending -per hospitalist, consider ID consult if indicated -no acute bleed or stroke or other pathology on CT head YOGI: -baseline creat 1.3-1.4 -YOGI here ? vol depletion based on family's provided hx -creat 2.0-->trending down -IVF persistent afib: - chronic uncontrolled rates with new-onset mild tachymyopathy on echo 03/18. - rate control c/b low sbp's (sbp's typically 80s-90s) and symptomatic orthostatic hypotension. - tolerated dig 0.125 for unknown amt of time with prior treating group work program director, then toxicicity on 0.25 mg dose--has remained off due to pt unreliable for compliance with regular bloodwork f/u. - lopressor incr'd to tid as outpt early 2017 with better HR control, but had to cut back dose recently due to BPs in 80s-90 with slight orthostatic drop in office. - HRs have remained reasonable in office, may increase here as pt has h/o agitated sundowning in hospital - will continue regular outpt f/u of rate control as doing, and if further LVEF decline despite max tolerated AVN gale regimen, will add amio and then consider AVN ablation/PM - fludrocortisone for BP support - balance is poor, and appears to be the major source of prior h/o multiple falls. however he has been very cautious and had avoided falls for many months now, until recent episode at home several weeks ago. - CHADS VASC 3. per Dr. Fay: previous outpt discussions with pt//dtr in past regarding risks/benefits of AC (with falls/ICH risk), aspirin alone (with incr'd embolic CVA risk) and Watchman device: they have declined Watchman and opted for continued AC with falls precautions for now. - not anemic here, no signs bleeding. -01/31: cont metoprolol to 37.5 mg TID, monitor tele -02/01: rvr, often refusing meds. increased lopressor to 50 tid, - 02/02: RVR, taking lopressor. increase to 75 mg TID, PRN IV lopressor. cont tele. cont ac. was on eliquis but changed to lovenox for ACS as below. cardiomyopathy, ? acute mixed syst/diast CHF: - 03/2017 with newly depressed LVEF on echo, moderate MR--presumed related tachymyopathy. - no prior clinical chf. - currently with nonspecific sx's (alt MS), but CT chest showing signif bilat effusions and suggestion of interstitial edema suspected - BNP 14K, difficult to interpret in setting of signif reduced GFR (no priors available) - EF 30-35% on echo here, lower than prior - had been receiving IVF for YOGI, dc'ed - low dose BB as tolerates. low bp will not tolerate MAJOR/ARB - hold diuretics (baseline renal insufficiency, orthostatic hypotension), monitor - s/p right pleural decompression catheter, pulm following CAD s/p NC and prior PCI's, NSTEMI: - initially trop in indeterminate range with flat trend x 3, but then repeat 02/01 (done for unclear reasons) showed elevated trop, peaked at 11. ECG unchanged and pt not complaining of sxs but given sharp rise in trop will treat as nstemi. Cont asa, bb, statin. eliquis changed temporarily to lovenox for 72 hours. Given his poor functional status and dementia will likely cont with conservative med management - prior patent mlad and Lcx stent with ? residual rca disease (but no ischemia on subsequent stress testing). last stent 2005. positional light-headedness/orthostatic hypotension/chronic dysequilibrium/ repeated falls: - no recent falls - midodrine and fludrocortisone previously tried, then held due to pt/ preferences (concerned about s.e. potential of all new meds) and lack of clear efficacy - fludrocort resumed recently for bp's in 80s persistently
--- NOTE | 2018-02-02 11:46 | PN ---
Progress Note (short form) - Note Progress Note: PULMONARY DNR/DNI CONFUSED/TROPS ARE RISING PLEURAL FLUID DRAINAGE CONTINUES ON RIGHT VIA PIGTAIL PALE/CHRONICALLY ILL IN APPEARANCE DIMINISHED BREATH SOUNDS BILATERALLY/RIGHT CHEST TUBE PRESENT S1S2 BS+ LESS EDEMA B/L LABS/MEDS/NOTES/IMAGES/MICRO NOTED HYPERKALEMIA CHF Bilateral Pleural effusion:Transudate AMS Elevated troponin likely due to demand ischemia Dementia AFib with RVR HTN Pneumococcal pneumonia Kayexelate ordered/f/u K+ PLAN: ABX per ID O2 as needed/supportive care Aspiration precautions Goals of care to be addressed prognosis poor R JENNIE HUYNH
--- NOTE | 2018-02-02 12:42 | EKG ---
Test Reason : Blood Pressure : / mmHG Vent. Rate : 119 BPM Atrial Rate : 441 BPM P-R Int : 000 ms QRS Dur : 080 ms QT Int : 366 ms P-R-T Axes : 000 028 110 degrees QTc Int : 514 ms ATRIAL FIBRILLATION WITH RAPID VENTRICULAR RESPONSE WITH PREMATURE VENTRICULAR OR ABERRANTLY CONDUCTED COMPLEXES LOW VOLTAGE QRS CANNOT RULE OUT ANTERIOR INFARCT (CITED ON OR BEFORE 01-FEB-2018) NONSPECIFIC ST ABNORMALITY ABNORMAL ECG WHEN COMPARED WITH ECG OF 01-FEB-2018 15:18, NO SIGNIFICANT CHANGE WAS FOUND Confirmed by DERRICK MONTEJO MD ([id number]) on 02/02/2018 12:41:56 PM Referred By: Confirmed By:DERRICK MONTEJO MD
[2018-02-02 14:01] LABS: ANION GAP 8 MMOL/L (8-16); BLOOD UREA NITROGEN 37 mg/dL (7-18); CALCIUM 8.9 mg/dL (8.5-10.1); CHLORIDE 109 mmol/L (98-107); CO2 28 mmol/L (21-32); CREATININE 1.7 mg/dL (0.55-1.3); GLUCOSE,RANDOM 161 mg/dL (74-106); POTASSIUM 4.9 mmol/L (3.5-5.1); SODIUM 145 mmol/L (136-145)
[2018-02-02] MEDS: ATORVASTATIN CA 10 MG TABLET (FP) PO SCH (21:16)
[2018-02-03] MEDS: METOPROLOL TARTRATE 50 MG TABLET (FP) PO SCH ×3 (05:23→21:38)
[2018-02-03 07:32] LABS: BASO % 0.6 % (0-2.0); EOS % 0.9 % (0-4.5); HEMATOCRIT 44.1 % (35.4-49); LYMPH % 6.6 % (8-40); MCH 32.2 pg (25.7-33.7); MCHC 34.1 g/dl (32.0-35.9); MEAN CELL VOLUME 94.4 fl (80-96); MEAN PLT VOLUME 10.4 fl (7.5-11.1); MONO % 10.4 % (3.8-10.2); NEUT % 81.5 % (42.8-82.8); PLATELET COUNT 148 K/MM3 (134-434); RBC 4.67 M/mm3 (4.00-5.60); RDW 15.7 % (11.9-15.9); WHITE BLOOD COUNT 8.7 K/mm3 (4.0-10.0)
--- NOTE | 2018-02-03 07:55 | PN ---
Progress Note, Physician Chief Complaint: Alert less agitated still confused - Current Medication List Current Medications: Active Medications Acetaminophen (Tylenol -) 650 mg PO Q6H PRN PRN Reason: FEVER Last Admin: 01/31/18 17:15 Dose: 650 mg Aspirin (Asa -) 81 mg PO DAILY [facility] Last Admin: 02/02/18 09:47 Dose: 81 mg Atorvastatin Calcium (Lipitor -) 10 mg PO HS [facility] Last Admin: 02/02/18 21:16 Dose: 10 mg Enoxaparin Sodium (Lovenox -) 65 mg SQ BID [facility] Last Admin: 02/02/18 21:17 Dose: 65 mg Ceftriaxone Sodium 2 gm/ (Dextrose) 100 mls @ 200 mls/hr IVPB DAILY [facility]; Protocol Last Admin: 02/02/18 09:48 Dose: 200 mls/hr Metoprolol Tartrate (Lopressor Injection -) 5 mg IVPUSH Q8H PRN PRN Reason: TACHYCARDIA Last Admin: 02/02/18 15:15 Dose: 5 mg Metoprolol Tartrate (Lopressor -) 75 mg PO TID [facility] Last Admin: 02/03/18 05:23 Dose: 75 mg Pantoprazole Sodium (Protonix Iv) 40 mg IVPUSH DAILY [facility] Last Admin: 02/02/18 09:47 Dose: 40 mg - Objective Vital Signs: Vital Signs Temperature 97.9 F 02/03/18 05:12 Pulse Rate 118 H 02/03/18 05:12 Respiratory Rate 20 02/03/18 05:12 Blood Pressure 120/70 02/03/18 05:12 O2 Sat by Pulse Oximetry (%) 96 02/02/18 21:00 Elderly man not in distress still disoriented and confused HEENT: Mm moist anemia NECK: No JVd No Bruit CHEST: Decrease AE at bases Rt Chest tube CVS: S1S2 Irr tachycardia ABD; No distention non tender, suprapubic cathter at place. EXT: Trace edema feet, Pulses + RN AMBULATORY: more alert but agitated moving all extremities Labs: INR, PTT INR 2.53 (0.83-1.09) H 01/27/18 20:10 CBC, BMP 02/03/18 05:30 02/03/18 05:30 Problem List - Problems (1) Altered mental status Assessment/Plan: most likely Metabolic encephalopathy secondary too hypoxia, uremia and sepsis CT haed no acute changes Code(s): R41.82 - ALTERED MENTAL STATUS, UNSPECIFIED (2) Acute respiratory failure with hypoxia Assessment/Plan: Due to B/L Pleural effusion s/p chest tube Rt ML Pneumonia/ CHF will cont O2 inhalation, U Pneumpcoccal Ag + on Ceftriaxone, ID on the case Code(s): J96.01 - ACUTE RESPIRATORY FAILURE WITH HYPOXIA (3) Sepsis Assessment/Plan: Due to Pneumonia on IV abx Code(s): A41.9 - SEPSIS, UNSPECIFIED ORGANISM (4) Acute renal failure Assessment/Plan: Improving on IV Hydration Code(s): N17.9 - ACUTE KIDNEY FAILURE, UNSPECIFIED Qualifiers: Acute renal failure type: unspecified Qualified Code(s): N17.9 - Acute kidney failure, unspecified (5) Atrial fibrillation Assessment/Plan: Rate poorly controlled will f/u cardiology recommendations Code(s): I48.91 - UNSPECIFIED ATRIAL FIBRILLATION Qualifiers: Atrial fibrillation type: chronic Qualified Code(s): I48.2 - Chronic atrial fibrillation (6) Elevated troponin I level Assessment/Plan: H/O CAD s/p PCI elevated trop probably Demand Ischemia cont B Blockers statin Code(s): R74.8 - ABNORMAL LEVELS OF OTHER SERUM ENZYMES (7) CHF exacerbation Assessment/Plan: HfrEF 35-40% Known case of tachycardia induced Cardiomyopathy lCont Current management as per cardiology consult Code(s): I50.9 - HEART FAILURE, UNSPECIFIED Qualifiers: Heart failure type: combined systolic and diastolic Qualified Code(s): I50.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 (8) CKD (chronic kidney disease) stage 3, GFR 30-59 ml/min Assessment/Plan: Base line CKD stage 3 present with worsening functions Creat 2.0 Code(s): N18.3 - CHRONIC KIDNEY DISEASE, STAGE 3 (MODERATE) (9) Pleural effusion Assessment/Plan: B/L S/p Rt chest tube hemorrhagic will f/u cytology culture and cell count. Code(s): J90 - PLEURAL EFFUSION, NOT ELSEWHERE CLASSIFIED (10) Pneumonia Assessment/Plan: U STreptococcal Ag +, Ct chest shows Rt ML Pneumonia will cont Current abx ID consult F/U Cultures Code(s): J18.9 - PNEUMONIA, UNSPECIFIED ORGANISM Qualifiers: Pneumonia type: due to Pneumococcus Laterality: right Lung location: middle lobe of lung Qualified Code(s): J13 - Pneumonia due to Streptococcus pneumoniae (11) Goals of care, counseling/discussion Assessment/Plan: patient is DNR/DNI, Code(s): Z71.89 - OTHER SPECIFIED COUNSELING (12) Acute metabolic encephalopathy Assessment/Plan: Due to electrolyte imbalance and worsening renal functions Code(s): G93.41 - METABOLIC ENCEPHALOPATHY (13) Hyperkalemia Assessment/Plan: Resolved Code(s): E87.5 - HYPERKALEMIA (14) NSTEMI (non-ST elevated myocardial infarction) Assessment/Plan: Troponin is trending normal cont B Blockers statin. Code(s): I21.4 - NON-ST ELEVATION (NSTEMI) MYOCARDIAL INFARCTION (15) Hypernatremia Assessment/Plan: Encourage free water Code(s): E87.0 - HYPEROSMOLALITY AND HYPERNATREMIA
[2018-02-03 08:03] LABS: ANION GAP 7 MMOL/L (8-16); BLOOD UREA NITROGEN 37 mg/dL (7-18); CALCIUM 8.5 mg/dL (8.5-10.1); CHLORIDE 110 mmol/L (98-107); CO2 30 mmol/L (21-32); CREATININE 1.5 mg/dL (0.55-1.3); GLUCOSE,RANDOM 139 mg/dL (74-106); POTASSIUM 4.9 mmol/L (3.5-5.1); SODIUM 148 mmol/L (136-145)
[2018-02-03] MEDS ORDERED: DEXTROSE 5%-WATER 100 ML IVPB ONE (09:45)
[2018-02-03] MEDS ORDERED: PT OWN MED DRAWER 7, Y5N ONE ×3 (09:48→18:08)
[2018-02-03] MEDS: PANTOPRAZOLE SODIUM 40 MG VIAL IVPUSH SCH (09:57)
[2018-02-03] MEDS: ENOXAPARIN NA (PORCINE) 80 MG/0.8 ML DISP.SYRIN SQ SCH ×2 (09:57→21:39)
[2018-02-03] MEDS: ACETAMINOPHEN 325 MG TABLET (FP) PO PRN ×2 (09:57→21:38)
[2018-02-03] MEDS: CEFTRIAXONE 2 GM in DEXTROSE 5%-WATER 100 ML IVPB SCH (09:57)
[2018-02-03] MEDS: ASPIRIN 81 MG CHEWABLE TABLETS PO SCH (09:57)
--- NOTE | 2018-02-03 11:26 | PN ---
Progress Note (short form) - Note Progress Note: Progress Note: cc: alt ms s: alert, not answering questions appropriately. appears comfortable Current Medications Acetaminophen (Tylenol -) 650 mg PO Q6H PRN PRN Reason: FEVER Last Admin: 02/03/18 09:57 Dose: 650 mg Aspirin (Asa -) 81 mg PO DAILY [facility] Last Admin: 02/03/18 09:57 Dose: 81 mg Atorvastatin Calcium (Lipitor -) 10 mg PO HS [facility] Last Admin: 02/02/18 21:16 Dose: 10 mg Enoxaparin Sodium (Lovenox -) 65 mg SQ BID [facility] Last Admin: 02/03/18 09:57 Dose: 65 mg Ceftriaxone Sodium 2 gm/ (Dextrose) 100 mls @ 200 mls/hr IVPB DAILY [facility]; Protocol Last Admin: 02/03/18 09:57 Dose: 200 mls/hr Metoprolol Tartrate (Lopressor Injection -) 5 mg IVPUSH Q8H PRN PRN Reason: TACHYCARDIA Last Admin: 02/02/18 15:15 Dose: 5 mg Metoprolol Tartrate (Lopressor -) 75 mg PO TID [facility] Last Admin: 02/03/18 05:23 Dose: 75 mg Pantoprazole Sodium (Protonix Iv) 40 mg IVPUSH DAILY [facility] Last Admin: 02/03/18 09:57 Dose: 40 mg Vital Signs: Vital Signs Period Temp Pulse Resp BP Sys/Melchor Pulse Ox Last 24 Hr 96.7 F-98.2 F 75-154 18-20 102-132/47-86 96 Constitutional: Yes: Well Nourished, No Distress Eyes: No: Sclera Icterus Respiratory: Yes: CTA Bilaterally (anteriorly, poor effort). No: Accessory Muscle Use, Rales, Wheezes Gastrointestinal: Yes: Normal Bowel Sounds. No: Distention, Hepatomegaly, Palpable Mass, Tenderness Cardiovascular: Yes: Pulse Irregular JVD: No Heart Sounds: Yes: S1, S2. No: Gallop Murmur: No: Systolic Murmur, Diastolic Murmur Extremities: No: Cool, Cyanosis Edema: casey pedal edema Integumentary: No: Jaundice Neurological: No: awake, confused Psychiatric: No: Agitated Assessment/Plan ECG 01/27 (ER): rapid afib (135 bpm); nl axis. no path q's. nonsp TWAs (much improved ST-Ts vs prior 04/2017) CT chest: moderate to large bilat effusion with adjacent consolidation/atx. thickened interstitial septa c/w venous congestion. atx and infiltrates RML. ascending aorta 4.[address] head: no acute pathology or blood Echo 03/18: 1. Atrial fibrillation, with HRs ranging from 83-123 bpm (mostly in 90s-110s). 2. The left ventricular size is normal. 3. LA pressure is elevated. 4. Assessment of LVEF is confounded by atrial fibrillation rhythm with very variable R-R intervals. When analyzing beats occurring during average R-R intervals, EF appears to be ykowil-[id number] reduced, in the range of 45%. Global hypokinesis present. 5. The right ventricle is normal in size and function. 6. Left atrium is severely dilated by volume. 7. The right atrium is mildly enlarged. 8. Trace amount of aortic regurgitation. 9. Moderate mitral regurgitation is present (central jet). Estimated regurgitant volume = 22 cc, ERO 0.15 cm2. 10. Moderate tricuspid regurgitation present. (No systolic flow reversal present in hepatic vein.) 11. Unable to estimate RVSP due to inadequate TR jet spectral doppler profile ( it is at least 35 mmHg). 12. Normal inferior vena cava with normal inspiratory collapse consistent with estimated right atrial pressure of 3 mmHg. 13. There is a trivial pericardial effusion present, consistent with physiologic fluid level. Holter 02/16: Afib, not controlled: average 107, max 145, 12 hours with mean > 100 bpm. no mila's MPI 2014 (persantine): no ischemia; (diaphragmatic attenuation artifact); nl EF , no RWMA tele: afib 100s-110s, rvr at times echo 12/2017 EF 30-35%, RV nl size and function, LA/RA mildly dilated, mild to mod MR, mild TR, mild AR, small pericardal effusion altered MS, lactic acidosis: -hypothermic, lactic acid elevated...? infection. RML infiltrate on CT chest--r/ o PNA. 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 B and U cx's pending -per hospitalist, consider ID consult if indicated -no acute bleed or stroke or other pathology on CT head YOGI: -baseline creat 1.3-1.4 -YOGI here ? vol depletion based on family's provided hx -creat 2.0-->trending down wth IVF persistent afib: - chronic uncontrolled rates with new-onset mild tachymyopathy on echo 03/18. - rate control c/b low sbp's (sbp's typically 80s-90s) and symptomatic orthostatic hypotension. 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 - lopressor incr'd to tid as outpt early 2017 with better HR control, but had to cut back dose recently due to BPs in 80s-90 with slight orthostatic drop in office. - HRs have remained reasonable in office, may increase here as pt has h/o agitated sundowning in hospital - will continue regular outpt f/u of rate control as doing, and if further LVEF decline despite max tolerated AVN gale regimen, will add amio and then consider AVN ablation/PM - fludrocortisone for BP support - balance is poor, and appears to be the major source of prior h/o multiple falls. however he has been very cautious and had avoided falls for many months now, until recent episode at home several weeks ago. - CHADS VASC 3. per Dr. Fay: previous outpt discussions with pt//dtr in past regarding risks/benefits of AC (with falls/ICH risk), aspirin alone (with incr'd embolic CVA risk) and Watchman device: they have declined Watchman and opted for continued AC with falls precautions for now. - not anemic here, no signs bleeding. -01/31: cont metoprolol to 37.5 mg TID, monitor tele -02/01: rvr, often refusing meds. increased lopressor to 50 tid, - 02/02: RVR, taking lopressor. increased to 75 mg TID, PRN IV lopressor. cont tele. cont ac. was on eliquis but changed to lovenox for ACS as below. -02/03: BP stable on lopressor, occasionally RVR, generally controlled. cont metoprolol 75 mg TID cardiomyopathy, ? acute mixed syst/diast CHF: - 03/2017 with newly depressed LVEF on echo, moderate MR--presumed related tachymyopathy. - no prior clinical chf. - currently with nonspecific sx's (alt MS), but CT chest showing signif bilat effusions and suggestion of interstitial edema suspected - BNP 14K, difficult to interpret in setting of signif reduced GFR (no priors available) - EF 30-35% on echo here, lower than prior - had been receiving IVF for YOGI, dc'ed - low dose BB as tolerates. low bp will not tolerate MAJOR/ARB - hold diuretics (baseline renal insufficiency, orthostatic hypotension), monitor - s/p right pleural decompression catheter, pulm following CAD s/p NH and prior PCI's, NSTEMI: - initially trop in indeterminate range with flat trend x 3, but then repeat 02/01 (done for unclear reasons) showed elevated trop, peaked at 11. ECG unchanged and pt not complaining of sxs but given sharp rise in trop will treat as nstemi. Cont asa, bb, statin. eliquis changed temporarily to lovenox for 72 hours. Given his poor functional status and dementia will likely cont with conservative med management - prior patent mlad and Lcx stent with ? residual rca disease (but no ischemia on subsequent stress testing). last stent 2005. positional light-headedness/orthostatic hypotension/chronic dysequilibrium/ repeated falls: - no recent falls - midodrine and fludrocortisone previously tried, then held due to pt/ preferences (concerned about s.e. potential of all new meds) and lack of clear efficacy - fludrocort resumed recently for bp's in 80s persistently
--- NOTE | 2018-02-03 13:09 | PN ---
Progress Note (short form) - Note Progress Note: PULMONARY DNR/DNI CONFUSED/ PLEURAL FLUID DRAINAGE CONTINUES ON RIGHT VIA PIGTAIL PALE/CHRONICALLY ILL IN APPEARANCE DIMINISHED BREATH SOUNDS BILATERALLY/RIGHT CHEST TUBE PRESENT S1S2 BS+ LESS EDEMA B/L LABS/MEDS/NOTES/IMAGES/MICRO NOTED HYPERKALEMIA CHF Bilateral Pleural effusion:Transudate AMS Elevated troponin likely due to demand ischemia Dementia AFib with RVR HTN Pneumococcal pneumonia Kayexelate ordered/f/u K+ PLAN: ABX per ID O2 as needed/supportive care Aspiration precautions Goals of care to be addressed prognosis poor R JENNIE HUYNH
[2018-02-03] MEDS: ATORVASTATIN CA 10 MG TABLET (FP) PO SCH (21:38)
[2018-02-04] MEDS: METOPROLOL TARTRATE 50 MG TABLET (FP) PO SCH ×3 (06:07→21:22)
[2018-02-04 06:27] LABS: BASO % 0.7 % (0-2.0); EOS % 2.1 % (0-4.5); HEMOGLOBIN 14.5 GM/dL (11.7-16.9); LYMPH % 8.9 % (8-40); MCHC 33.7 g/dl (32.0-35.9); MONO % 12.1 % (3.8-10.2); NEUT % 76.2 % (42.8-82.8); PLATELET COUNT 137 K/MM3 (134-434); RBC 4.53 M/mm3 (4.00-5.60); RDW 15.8 % (11.9-15.9); WHITE BLOOD COUNT 7.1 K/mm3 (4.0-10.0)
[2018-02-04 06:55] LABS: ANION GAP 7 MMOL/L (8-16); BLOOD UREA NITROGEN 42 mg/dL (7-18); CALCIUM 8.5 mg/dL (8.5-10.1); CHLORIDE 112 mmol/L (98-107); CO2 33 mmol/L (21-32); CREATININE 1.5 mg/dL (0.55-1.3); GLUCOSE,RANDOM 93 mg/dL (74-106); POTASSIUM 4.7 mmol/L (3.5-5.1); SODIUM 152 mmol/L (136-145)
--- NOTE | 2018-02-04 09:53 | PN ---
Progress Note, Physician Chief Complaint: sob, altered MS History of Present Illness: asleep, not rousable no cigs - Current Medication List Current Medications: Active Medications Acetaminophen (Tylenol -) 650 mg PO Q6H PRN PRN Reason: FEVER Last Admin: 02/03/18 21:38 Dose: 650 mg Aspirin (Asa -) 81 mg PO DAILY [facility] Last Admin: 02/03/18 09:57 Dose: 81 mg Atorvastatin Calcium (Lipitor -) 10 mg PO HS [facility] Last Admin: 02/03/18 21:38 Dose: 10 mg Enoxaparin Sodium (Lovenox -) 65 mg SQ BID [facility] Last Admin: 02/03/18 21:39 Dose: 65 mg Ceftriaxone Sodium 2 gm/ (Dextrose) 100 mls @ 200 mls/hr IVPB DAILY [facility]; Protocol Last Admin: 02/03/18 09:57 Dose: 200 mls/hr Metoprolol Tartrate (Lopressor Injection -) 5 mg IVPUSH Q8H PRN PRN Reason: TACHYCARDIA Last Admin: 02/02/18 15:15 Dose: 5 mg Metoprolol Tartrate (Lopressor -) 75 mg PO TID [facility] Last Admin: 02/04/18 06:07 Dose: 75 mg Pantoprazole Sodium (Protonix Iv) 40 mg IVPUSH DAILY [facility] Last Admin: 02/03/18 09:57 Dose: 40 mg - Objective Vital Signs: Vital Signs Temperature 98 F 02/04/18 09:09 Pulse Rate 100 H 02/04/18 09:09 Respiratory Rate 20 02/04/18 09:09 Blood Pressure 108/58 L 02/04/18 09:09 O2 Sat by Pulse Oximetry (%) 97 02/03/18 21:00 Constitutional: Yes: No Distress, Calm Eyes: No: Sclera Icterus HENT: No: Nasal Congestion Cardiovascular: Yes: Pulse Irregular, S1, S2, Other (PMI non diplaced). No: JVD , Gallop, Murmur Respiratory: Yes: CTA Bilaterally (not deep breaths (pt asleep)). No: Accessory Muscle Use, Rales, Wheezes Gastrointestinal: Yes: Normal Bowel Sounds, Soft. No: Tenderness Musculoskeletal: Yes: Other (No kyphosis) Extremities: No: Cold Edema: No Integumentary: No: Jaundice Neurological: No: Alert, Oriented (x3) Psychiatric: No: Agitated Labs: CBC, BMP 02/04/18 05:30 02/04/18 05:30 INR, PTT INR 2.53 (0.83-1.09) H 01/27/18 20:10 Assessment/Plan ECG 01/27 (ER): rapid afib (135 bpm); nl axis. no path q's. nonsp TWAs (much improved ST-Ts vs prior 04/2017) CT chest: moderate to large bilat effusion with adjacent consolidation/atx. thickened interstitial septa c/w venous congestion. atx and infiltrates RML. ascending aorta 4.[address] head: no acute pathology or blood Echo 03/18: 1. Atrial fibrillation, with HRs ranging from 83-123 bpm (mostly in 90s-110s). 2. The left ventricular size is normal. 3. LA pressure is elevated. 4. Assessment of LVEF is confounded by atrial fibrillation rhythm with very variable R-R intervals. When analyzing beats occurring during average R-R intervals, EF appears to be [id number] reduced, in the range of 45%. Global hypokinesis present. 5. The right ventricle is normal in size and function. 6. Left atrium is severely dilated by volume. 7. The right atrium is mildly enlarged. 8. Trace amount of aortic regurgitation. 9. Moderate mitral regurgitation is present (central jet). Estimated regurgitant volume = 22 cc, ERO 0.15 cm2. 10. Moderate tricuspid regurgitation present. (No systolic flow reversal present in hepatic vein.) 11. Unable to estimate RVSP due to inadequate TR jet spectral doppler profile ( it is at least 35 mmHg). 12. Normal inferior vena cava with normal inspiratory collapse consistent with estimated right atrial pressure of 3 mmHg. 13. There is a trivial pericardial effusion present, consistent with physiologic fluid level. Holter 02/16: Afib, not controlled: average 107, max 145, 12 hours with mean > 100 bpm. no mila's MPI 2014 (persantine): no ischemia; (diaphragmatic attenuation artifact); nl EF , no RWMA Echo 12/2017 EF 30-35%, RV nl size and function, LA/RA mildly dilated, mild to mod MR, mild TR, mild AR, small pericardal effusion tele: afib, HRs 100s-130s altered MS, lactic acidosis, hypothermia, pneumococcal PNA: -abx per ID YOGI: -baseline creat 1.3-1.4 -YOGI here ? vol depletion based on family's provided hx -creat 2.0-->trended down wt IVF, 1.5 -IVF stopped persistent afib, rapid HR with tachy-CMP: - chronic uncontrolled rates with new-onset mild tachymyopathy on echo 03/18. - rate control c/b low sbp's (sbp's typically 80s-90s) and symptomatic orthostatic hypotension. 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 - lopressor incr'd to tid as outpt early 2017 with better HR control, but had to cut back dose recently due to BPs in 80s-90 with slight orthostatic drop in office. - HRs have remained reasonable in office, may increase here as pt has h/o agitated sundowning in hospital - will continue regular outpt f/u of rate control as doing, and if further LVEF decline despite max tolerated AVN gale regimen, will add amio and then consider AVN ablation/PM - fludrocortisone for BP support - balance is poor, and appears to be the major source of prior h/o multiple falls. however he has been very cautious and had avoided falls for many months now, until recent episode at home several weeks ago. - CHADS VASC 3. per Dr. Fay: previous outpt discussions with pt//dtr in past regarding risks/benefits of AC (with falls/ICH risk), aspirin alone (with incr'd embolic CVA risk) and Watchman device: they have declined Watchman and opted for continued AC with falls precautions for now. - not anemic here, no signs bleeding. -01/31: cont metoprolol to 37.5 mg TID, monitor tele -02/01: rvr, often refusing meds. increased lopressor to 50 tid, - 02/02: RVR, taking lopressor. increased to 75 mg TID, PRN IV lopressor. cont tele. cont ac. was on eliquis but changed to lovenox for ACS as below. -02/03: BP stable on lopressor, occasionally RVR, generally controlled. cont metoprolol 75 mg TID -02/04: home baseline BPs and orthostatic behavior will not tolerate high dose metoprolol--ok to continue for now. cannot use fludrocortisone given bilat effusions here likely CHF (from tachy) > parapneumonic. midodrine ineffective previously. -given there are no remaining options to support bp's bp and prevent orthostatic hypotension-mediated falls, and he remains with HRs frequently to 110s-130 at rest, he will have uncontrolled (faster) HRs if he recovers from this illness and becomes active again. he has developed worsening of prior tachy -CMP with signif drop in LVEF. -BP will not tolerate current dose of metoprolol (resting BP 80s-90s seated in office x multiple of late). - will start amio for rate control without hypotensive effects: review of MAR reveals pt has been on uninterrupted AC (eliquis-->lovenox) with the exception of HD#1 (01/27)...he is very low likelihood to convert pharmacologically with po amio given he is in persistent afib for > 2 yrs, and very low risk for post- cardioversion thromboembolic event given has o/w been on uninterrupted eliquis at home for long time (amio approach is lower risk than AVN ablation/PPM). - decrease metopr 75 TID to 50 TID while starting amio--if HR ok tomorrow, would go down further to 25 TID cardiomyopathy, ? acute mixed syst/diast CHF: - 03/2017 with newly depressed LVEF on echo, moderate MR--presumed related tachymyopathy. - no prior clinical chf. - currently with nonspecific sx's (alt MS), but CT chest showing signif bilat effusions and suggestion of interstitial edema suspected - BNP 14K, difficult to interpret in setting of signif reduced GFR (no priors available) - EF 30-35% on echo here, lower than prior - had been receiving IVF for YOGI, dc'ed - low dose BB as tolerates. low bp will not tolerate MAJOR/ARB - 02/04: appears well-compensated, despite bilateral effusions persisting on CXR 02/01. repeat CXR today. continue holding diuretics (baseline renal insufficiency , orthostatic hypotension), monitor - holding IVF - s/p right pleural decompression catheter, pulm following CAD s/p [place] and prior PCI's, + NSTEMI: - initially trop in indeterminate range with flat trend x 3 - repeat trop sent 02/01 (done for unclear reasons) showed elevated trop, peaked at 11. ECG unchanged and pt not complaining of sxs but given sharp rise in trop will treat as nstemi (with asa, bb, statin lovenox) - prior patent mlad and Lcx stent with ? residual rca disease (but no ischemia on subsequent stress testing). last stent 2005. positional light-headedness/orthostatic hypotension/chronic dysequilibrium/ repeated falls: - no recent falls - midodrine and fludrocortisone previously tried, then held due to pt/ preferences (concerned about s.e. potential of all new meds) and lack of clear efficacy - fludrocort resumed recently for bp's in 80s persistently--now on hold for effusions/chf
[2018-02-04] MEDS: PANTOPRAZOLE SODIUM 40 MG VIAL IVPUSH SCH (10:21)
[2018-02-04] MEDS: ENOXAPARIN NA (PORCINE) 80 MG/0.8 ML DISP.SYRIN SQ SCH ×2 (10:21→21:22)
[2018-02-04] MEDS: ASPIRIN 81 MG CHEWABLE TABLETS PO SCH (10:21)
--- NOTE | 2018-02-04 10:32 | PN ---
Progress Note, Physician History of Present Illness: PULMONARY AWAKE,NON-VERBAL,-RESP DISTRESS - Current Medication List Current Medications: Active Medications Acetaminophen (Tylenol -) 650 mg PO Q6H PRN PRN Reason: FEVER Last Admin: 02/03/18 21:38 Dose: 650 mg Aspirin (Asa -) 81 mg PO DAILY [facility] Last Admin: 02/04/18 10:21 Dose: 81 mg Atorvastatin Calcium (Lipitor -) 10 mg PO HS [facility] Last Admin: 02/03/18 21:38 Dose: 10 mg Enoxaparin Sodium (Lovenox -) 65 mg SQ BID [facility] Last Admin: 02/04/18 10:21 Dose: 65 mg Metoprolol Tartrate (Lopressor Injection -) 5 mg IVPUSH Q8H PRN PRN Reason: TACHYCARDIA Last Admin: 02/02/18 15:15 Dose: 5 mg Metoprolol Tartrate (Lopressor -) 75 mg PO TID [facility] Last Admin: 02/04/18 06:07 Dose: 75 mg Pantoprazole Sodium (Protonix Iv) 40 mg IVPUSH DAILY [facility] Last Admin: 02/04/18 10:21 Dose: 40 mg - Objective Vital Signs: Vital Signs Temperature 98 F 02/04/18 09:09 Pulse Rate 100 H 02/04/18 09:09 Respiratory Rate 20 02/04/18 09:09 Blood Pressure 108/58 L 02/04/18 09:09 O2 Sat by Pulse Oximetry (%) 97 02/03/18 21:00 Constitutional: Yes: Well Nourished, Calm Eyes: Yes: WNL HENT: Yes: WNL Neck: Yes: WNL Cardiovascular: Yes: Pulse Irregular, S1, S2 Respiratory: Yes: Diminished Gastrointestinal: Yes: Normal Bowel Sounds, Soft Extremities: Yes: WNL Edema: No Labs: CBC, BMP 02/04/18 05:30 02/04/18 05:30 INR, PTT INR 2.53 (0.83-1.09) H 01/27/18 20:10 Problem List - Problems (1) Altered mental status Code(s): R41.82 - ALTERED MENTAL STATUS, UNSPECIFIED (2) Elevated troponin I level Code(s): R74.8 - ABNORMAL LEVELS OF OTHER SERUM ENZYMES (3) Pneumonia Code(s): J18.9 - PNEUMONIA, UNSPECIFIED ORGANISM Qualifiers: Pneumonia type: due to Pneumococcus Laterality: right Lung location: middle lobe of lung Qualified Code(s): J13 - Pneumonia due to Streptococcus pneumoniae (4) Atrial fibrillation Code(s): I48.91 - UNSPECIFIED ATRIAL FIBRILLATION Qualifiers: Atrial fibrillation type: chronic Qualified Code(s): I48.2 - Chronic atrial fibrillation (5) Dementia Code(s): F03.90 - UNSPECIFIED DEMENTIA WITHOUT BEHAVIORAL DISTURBANCE Qualifiers: Dementia type: unspecified type Dementia behavioral disturbance: without behavioral disturbance Qualified Code(s): F03.90 - Unspecified dementia without behavioral disturbance (6) ASHD (arteriosclerotic heart disease) Code(s): I25.10 - ATHSCL HEART DISEASE OF [place] CORONARY ARTERY W/O ANG PCTRS (7) Pleural effusion Code(s): J90 - PLEURAL EFFUSION, NOT ELSEWHERE CLASSIFIED Assessment/Plan IMP: CHF Bilateral Pleural effusion: S/P placement of a right sided pleural decompression catheter. Transudate AMS Elevated troponin likely due to demand ischemia Dementia AFib with RVR HTN PLAN: O2 as needed Aspiration precautions Follow daily CXR while pleural catheter is in place monitor lytes,renal function DR SPENCER
[2018-02-04] MEDS ORDERED: CEFTRIAXONE 2 GM in DEXTROSE 5%-WATER 100 ML IVPB SCH (12:45)
[2018-02-04] MEDS ORDERED: AMIODARONE HCL 200 MG TABLET (FP) PO SCH (14:00)
[2018-02-04] MEDS ORDERED: DEXTROSE 5%-WATER 100 ML IVPB ONE (15:25)
--- NOTE | 2018-02-04 16:10 | PN ---
Progress Note, Physician Chief Complaint: Unable to obtain - Current Medication List Current Medications: Active Medications Acetaminophen (Tylenol -) 650 mg PO Q6H PRN PRN Reason: FEVER Last Admin: 02/03/18 21:38 Dose: 650 mg Amiodarone HCl (Cordarone -) 200 mg PO DAILY [facility] Aspirin (Asa -) 81 mg PO DAILY [facility] Last Admin: 02/04/18 10:21 Dose: 81 mg Atorvastatin Calcium (Lipitor -) 10 mg PO HS [facility] Last Admin: 02/03/18 21:38 Dose: 10 mg Enoxaparin Sodium (Lovenox -) 65 mg SQ BID [facility] Last Admin: 02/04/18 10:21 Dose: 65 mg Ceftriaxone Sodium 2 gm/ (Dextrose) 100 mls @ 200 mls/hr IVPB DAILY [facility]; Protocol Last Admin: 02/04/18 15:29 Dose: 200 mls/hr Metoprolol Tartrate (Lopressor Injection -) 5 mg IVPUSH Q8H PRN PRN Reason: TACHYCARDIA Last Admin: 02/02/18 15:15 Dose: 5 mg Metoprolol Tartrate (Lopressor -) 50 mg PO TID [facility] Last Admin: 02/04/18 15:28 Dose: 50 mg Pantoprazole Sodium (Protonix Iv) 40 mg IVPUSH DAILY [facility] Last Admin: 02/04/18 10:21 Dose: 40 mg - Objective Vital Signs: Vital Signs Temperature 36.6 C 02/04/18 09:09 Pulse Rate 100 H 02/04/18 09:09 Respiratory Rate 20 02/04/18 09:09 Blood Pressure 108/58 L 02/04/18 09:09 O2 Sat by Pulse Oximetry (%) 98 02/04/18 09:00 Constitutional: Yes: No Distress, Calm, Other (lethargic) Labs: CBC, BMP 02/04/18 05:30 02/04/18 05:30 INR, PTT INR 2.53 (0.83-1.09) H 01/27/18 20:10 Problem List - Problems (1) Pneumonia Code(s): J18.9 - PNEUMONIA, UNSPECIFIED ORGANISM Qualifiers: Pneumonia type: due to Pneumococcus Laterality: right Lung location: middle lobe of lung Qualified Code(s): J13 - Pneumonia due to Streptococcus pneumoniae (2) Acute metabolic encephalopathy Code(s): G93.41 - METABOLIC ENCEPHALOPATHY (3) CHF exacerbation Code(s): I50.9 - HEART FAILURE, UNSPECIFIED Qualifiers: Heart failure type: combined systolic and diastolic Qualified Code(s): I50.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 (4) Pleural effusion Code(s): J90 - PLEURAL EFFUSION, NOT ELSEWHERE CLASSIFIED (5) Sepsis Code(s): A41.9 - SEPSIS, UNSPECIFIED ORGANISM (6) Acute renal failure Code(s): N17.9 - ACUTE KIDNEY FAILURE, UNSPECIFIED Qualifiers: Acute renal failure type: unspecified Qualified Code(s): N17.9 - Acute kidney failure, unspecified (7) Atrial fibrillation Code(s): I48.91 - UNSPECIFIED ATRIAL FIBRILLATION Qualifiers: Atrial fibrillation type: chronic Qualified Code(s): I48.2 - Chronic atrial fibrillation (8) CKD (chronic kidney disease) stage 3, GFR 30-59 ml/min Code(s): N18.3 - CHRONIC KIDNEY DISEASE, STAGE 3 (MODERATE) (9) Dementia Code(s): F03.90 - UNSPECIFIED DEMENTIA WITHOUT BEHAVIORAL DISTURBANCE Qualifiers: Dementia type: unspecified type Dementia behavioral disturbance: without behavioral disturbance Qualified Code(s): F03.90 - Unspecified dementia without behavioral disturbance (10) NSTEMI (non-ST elevated myocardial infarction) Code(s): I21.4 - NON-ST ELEVATION (NSTEMI) MYOCARDIAL INFARCTION Assessment/Plan (1) Pneumonia Assessment/Plan: -ID following -continue rocephin -await ID recommendations for full course Code(s): J18.9 - PNEUMONIA, UNSPECIFIED ORGANISM Qualifiers: Pneumonia type: due to Pneumococcus Laterality: right Lung location: middle lobe of lung Qualified Code(s): J13 - Pneumonia due to Streptococcus pneumoniae (2) Acute metabolic encephalopathy Assessment/Plan: -patient not improving -? 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 (4) Pleural effusion Assessment/Plan: -s/p chest tube -transudative fluid -pulmonary following Code(s): J90 - PLEURAL EFFUSION, NOT ELSEWHERE CLASSIFIED (5) Sepsis Assessment/Plan: -resolved -continue rocephin Code(s): A41.9 - SEPSIS, UNSPECIFIED ORGANISM (6) Acute renal failure Assessment/Plan: -now at baseline -monitor Code(s): N17.9 - ACUTE KIDNEY FAILURE, UNSPECIFIED Qualifiers: Acute renal failure type: unspecified Qualified Code(s): N17.9 - Acute kidney failure, unspecified (7) Atrial fibrillation Assessment/Plan: -continue lopressor -continue eliquis -now on amiodarone as well Code(s): I48.91 - UNSPECIFIED ATRIAL FIBRILLATION Qualifiers: Atrial fibrillation type: chronic Qualified Code(s): I48.2 - Chronic atrial fibrillation (8) CKD (chronic kidney disease) stage 3, GFR 30-59 ml/min Assessment/Plan: -at baseline Code(s): N18.3 - CHRONIC KIDNEY DISEASE, STAGE 3 (MODERATE) (9) Dementia Assessment/Plan: -still with AMS -monitor for improvement Code(s): F03.90 - UNSPECIFIED DEMENTIA WITHOUT BEHAVIORAL DISTURBANCE Qualifiers: Dementia type: unspecified type Dementia behavioral disturbance: without behavioral disturbance Qualified Code(s): F03.90 - Unspecified dementia without behavioral disturbance (10) NSTEMI -cardiology following
--- NOTE | 2018-02-04 16:31 | PN ---
Progress Note (short form) - Note Progress Note: resting comfortably easily arousable minimal verbal responses poor po intake Vital Signs Period Temp Pulse Resp BP Sys/Melchor Pulse Ox Last 24 Hr 97 F-98.2 F 70-118 19-20 96-112/35-74 97-98 cor-rrr llungs decresed bs at bases +chest tube abd soft,nt ext no edema CBC, BMP 02/04/18 05:30 02/04/18 05:30 Microbiology 01/27/18 20:10 Blood - Peripheral Venous Blood Culture - Final NO GROWTH AFTER 5 DAYS INCUBATION 01/27/18 20:10 Blood - Peripheral Venous Blood Culture - Final NO GROWTH AFTER 5 DAYS INCUBATION 01/28/18 11:00 Pleural Fluid Gram Stain - Final 01/28/18 11:00 Pleural Fluid Body Fluid Culture - Final NO GROWTH OF AEROBIC ORGANISMS AFTER 48 HOURS INCUBATION 01/28/18 11:00 Pleural Fluid Anaerobic Culture - Final NO ANAEROBES WERE ISOLATED 01/27/18 21:58 Urine - Urine Clean Catch Urine Culture - Final Contaminated: Please Repeat 01/28/18 11:00 Urine For Antigen Detection Legionella Antigen - Final 01/28/18 11:00 Urine For Antigen Detection Streptococcus pneumoniae Antigen (M - Final Current Medications Acetaminophen (Tylenol -) 650 mg PO Q6H PRN PRN Reason: FEVER Last Admin: 02/03/18 21:38 Dose: 650 mg Amiodarone HCl (Cordarone -) 200 mg PO DAILY [facility] Aspirin (Asa -) 81 mg PO DAILY [facility] Last Admin: 02/04/18 10:21 Dose: 81 mg Atorvastatin Calcium (Lipitor -) 10 mg PO HS [facility] Last Admin: 02/03/18 21:38 Dose: 10 mg Enoxaparin Sodium (Lovenox -) 65 mg SQ BID [facility] Last Admin: 02/04/18 10:21 Dose: 65 mg Ceftriaxone Sodium 2 gm/ (Dextrose) 100 mls @ 200 mls/hr IVPB DAILY [facility]; Protocol Last Admin: 02/04/18 15:29 Dose: 200 mls/hr Metoprolol Tartrate (Lopressor Injection -) 5 mg IVPUSH Q8H PRN PRN Reason: TACHYCARDIA Last Admin: 02/02/18 15:15 Dose: 5 mg Metoprolol Tartrate (Lopressor -) 50 mg PO TID [facility] Last Admin: 02/04/18 15:28 Dose: 50 mg Pantoprazole Sodium (Protonix Iv) 40 mg IVPUSH DAILY [facility] Last Admin: 02/04/18 10:21 Dose: 40 mg a/p pneumococcal pneumonia fluid not c/w empyema day #8 rocephin- will d/c antibiotics bilateral pleural effusions- suspect secondary to chf now with chest tube - fluid c/w transudate management per pulmonary afib/chf- echo shows severely reduced LV function NSTEMI management per cardiology dementia d/c antibiotics and observe
[2018-02-04] MEDS: ATORVASTATIN CA 10 MG TABLET (FP) PO SCH (21:22)
[2018-02-05] MEDS: METOPROLOL TARTRATE 50 MG TABLET (FP) PO SCH ×3 (05:59→21:25)
[2018-02-05 07:31] LABS: BASO % 0.9 % (0-2.0); EOS % 1.4 % (0-4.5); HEMATOCRIT 47.8 % (35.4-49); HEMOGLOBIN 15.2 GM/dL (11.7-16.9); LYMPH % 7.4 % (8-40); MCH 30.4 pg (25.7-33.7); MCHC 31.9 g/dl (32.0-35.9); MEAN CELL VOLUME 95.4 fl (80-96); MEAN PLT VOLUME 9.9 fl (7.5-11.1); MONO % 10.5 % (3.8-10.2); NEUT % 79.8 % (42.8-82.8); PLATELET COUNT 118 K/MM3 (134-434); RBC 5.01 M/mm3 (4.00-5.60); RDW 16.1 % (11.9-15.9); WHITE BLOOD COUNT 7.7 K/mm3 (4.0-10.0)
[2018-02-05 08:15] LABS: ANION GAP 8 MMOL/L (8-16); BLOOD UREA NITROGEN 36 mg/dL (7-18); CALCIUM 8.8 mg/dL (8.5-10.1); CHLORIDE 110 mmol/L (98-107); CO2 30 mmol/L (21-32); CREATININE 1.3 mg/dL (0.55-1.3); GLUCOSE,RANDOM 105 mg/dL (74-106); MAGNESIUM 2.1 mg/dL (1.8-2.4); PHOSPHOROUS 2.8 mg/dL (2.5-4.9); POTASSIUM 4.5 mmol/L (3.5-5.1); SODIUM 148 mmol/L (136-145)
--- NOTE | 2018-02-05 08:52 | PN ---
Progress Note, Physician Chief Complaint: Mr Garibay is awake and alert today. Denies chest pain, shortness of breath, nausea/vomiting. Asking for coffee. - Current Medication List Current Medications: Active Medications Acetaminophen (Tylenol -) 650 mg PO Q6H PRN PRN Reason: FEVER Last Admin: 02/03/18 21:38 Dose: 650 mg Amiodarone HCl (Cordarone -) 200 mg PO DAILY [facility] Aspirin (Asa -) 81 mg PO DAILY [facility] Last Admin: 02/04/18 10:21 Dose: 81 mg Atorvastatin Calcium (Lipitor -) 10 mg PO HS [facility] Last Admin: 02/04/18 21:22 Dose: 10 mg Enoxaparin Sodium (Lovenox -) 65 mg SQ BID [facility] Last Admin: 02/04/18 21:22 Dose: 65 mg Metoprolol Tartrate (Lopressor Injection -) 5 mg IVPUSH Q8H PRN PRN Reason: TACHYCARDIA Last Admin: 02/02/18 15:15 Dose: 5 mg Metoprolol Tartrate (Lopressor -) 50 mg PO TID [facility] Last Admin: 02/05/18 05:59 Dose: 50 mg Pantoprazole Sodium (Protonix Iv) 40 mg IVPUSH DAILY [facility] Last Admin: 02/04/18 10:21 Dose: 40 mg - Objective Vital Signs: Vital Signs Temperature 36.2 C L 02/05/18 06:00 Pulse Rate 108 H 02/05/18 06:00 Respiratory Rate 20 02/05/18 06:00 Blood Pressure 118/65 02/05/18 06:00 O2 Sat by Pulse Oximetry (%) 98 02/04/18 21:00 Constitutional: Yes: Well Nourished, No Distress, Calm Cardiovascular: Yes: Regular Rate and Rhythm. No: Gallop, Murmur, Rub Respiratory: Yes: Regular, CTA Bilaterally, Other (chest tube in place). No: Rales, Rhonchi, Wheezes Extremities: Yes: WNL Edema: No Labs: CBC, BMP 02/05/18 06:35 02/05/18 06:35 INR, PTT INR 2.53 (0.83-1.09) H 01/27/18 20:10 Problem List - Problems (1) Pneumonia Code(s): J18.9 - PNEUMONIA, UNSPECIFIED ORGANISM Qualifiers: Pneumonia type: due to Pneumococcus Laterality: right Lung location: middle lobe of lung Qualified Code(s): J13 - Pneumonia due to Streptococcus pneumoniae (2) Acute metabolic encephalopathy Code(s): G93.41 - METABOLIC ENCEPHALOPATHY (3) CHF exacerbation Code(s): I50.9 - HEART FAILURE, UNSPECIFIED Qualifiers: Heart failure type: combined systolic and diastolic Qualified Code(s): I50.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 (4) Pleural effusion Code(s): J90 - PLEURAL EFFUSION, NOT ELSEWHERE CLASSIFIED (5) Sepsis Code(s): A41.9 - SEPSIS, UNSPECIFIED ORGANISM (6) Acute renal failure Code(s): N17.9 - ACUTE KIDNEY FAILURE, UNSPECIFIED Qualifiers: Acute renal failure type: unspecified Qualified Code(s): N17.9 - Acute kidney failure, unspecified (7) Atrial fibrillation Code(s): I48.91 - UNSPECIFIED ATRIAL FIBRILLATION Qualifiers: Atrial fibrillation type: chronic Qualified Code(s): I48.2 - Chronic atrial fibrillation (8) CKD (chronic kidney disease) stage 3, GFR 30-59 ml/min Code(s): N18.3 - CHRONIC KIDNEY DISEASE, STAGE 3 (MODERATE) (9) Dementia Code(s): F03.90 - UNSPECIFIED DEMENTIA WITHOUT BEHAVIORAL DISTURBANCE Qualifiers: Dementia type: unspecified type Dementia behavioral disturbance: without behavioral disturbance Qualified Code(s): F03.90 - Unspecified dementia without behavioral disturbance (10) NSTEMI (non-ST elevated myocardial infarction) Code(s): I21.4 - NON-ST ELEVATION (NSTEMI) MYOCARDIAL INFARCTION Assessment/Plan (1) Pneumonia Assessment/Plan: -case d/w Toni -rocephin stopped -pneumonia fully treated Code(s): J18.9 - PNEUMONIA, UNSPECIFIED ORGANISM Qualifiers: Pneumonia type: due to Pneumococcus Laterality: right Lung location: middle lobe of lung Qualified Code(s): J13 - Pneumonia due to Streptococcus pneumoniae (2) Acute metabolic encephalopathy Assessment/Plan: -MUCH IMPROVED today -patient interacting with me -hopefully patient continues to improve to baseline -PT to see -will add mealtime supplement as well Code(s): G93.41 - METABOLIC ENCEPHALOPATHY (3) CHF exacerbation Assessment/Plan: -cause of pleural effusions -cardiology following -currently not on diuretics Code(s): I50.9 - HEART FAILURE, UNSPECIFIED Qualifiers: Heart failure type: combined systolic and diastolic Qualified Code(s): I50.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 (4) Pleural effusion Assessment/Plan: -s/p chest tube -transudative fluid -pulmonary following -defer removal of chest tube to pulmonary Code(s): J90 - PLEURAL EFFUSION, NOT ELSEWHERE CLASSIFIED (5) Sepsis Assessment/Plan: -resolved -s/p full course of rocephin Code(s): A41.9 - SEPSIS, UNSPECIFIED ORGANISM (6) Acute renal failure Assessment/Plan: -now at baseline -monitor Code(s): N17.9 - ACUTE KIDNEY FAILURE, UNSPECIFIED Qualifiers: Acute renal failure type: unspecified Qualified Code(s): N17.9 - Acute kidney failure, unspecified (7) Atrial fibrillation Assessment/Plan: -continue lopressor -continue eliquis -amiodarone decreased secondary to pausing Code(s): I48.91 - UNSPECIFIED ATRIAL FIBRILLATION Qualifiers: Atrial fibrillation type: chronic Qualified Code(s): I48.2 - Chronic atrial fibrillation (8) CKD (chronic kidney disease) stage 3, GFR 30-59 ml/min Assessment/Plan: -at baseline Code(s): N18.3 - CHRONIC KIDNEY DISEASE, STAGE 3 (MODERATE) (9) Dementia Assessment/Plan: -mental status much improved Code(s): F03.90 - UNSPECIFIED DEMENTIA WITHOUT BEHAVIORAL DISTURBANCE Qualifiers: Dementia type: unspecified type Dementia behavioral disturbance: without behavioral disturbance Qualified Code(s): F03.90 - Unspecified dementia without behavioral disturbance (10) NSTEMI -cardiology following -medical management
[2018-02-05] MEDS: ENOXAPARIN NA (PORCINE) 80 MG/0.8 ML DISP.SYRIN SQ SCH ×2 (09:54→21:25)
[2018-02-05] MEDS: ASPIRIN 81 MG CHEWABLE TABLETS PO SCH (09:55)
[2018-02-05] MEDS: AMIODARONE HCL 200 MG TABLET (FP) PO SCH (09:55)
[2018-02-05] MEDS: PANTOPRAZOLE SODIUM 40 MG VIAL IVPUSH SCH (10:11)
--- NOTE | 2018-02-05 11:48 | PN ---
Progress Note, Physician History of Present Illness: PULMONARY AWAKE,ALERT,MORE VERBAL,-RESP DISTRESS. MINIMAL CHEST TUBE DRAINAGE 10cc - Current Medication List Current Medications: Active Medications Acetaminophen (Tylenol -) 650 mg PO Q6H PRN PRN Reason: FEVER Last Admin: 02/03/18 21:38 Dose: 650 mg Amiodarone HCl (Cordarone -) 200 mg PO DAILY [facility] Last Admin: 02/05/18 09:55 Dose: 200 mg Aspirin (Asa -) 81 mg PO DAILY [facility] Last Admin: 02/05/18 09:55 Dose: 81 mg Atorvastatin Calcium (Lipitor -) 10 mg PO HS [facility] Last Admin: 02/04/18 21:22 Dose: 10 mg Enoxaparin Sodium (Lovenox -) 65 mg SQ BID [facility] Last Admin: 02/05/18 09:54 Dose: 65 mg Metoprolol Tartrate (Lopressor Injection -) 5 mg IVPUSH Q8H PRN PRN Reason: TACHYCARDIA Last Admin: 02/02/18 15:15 Dose: 5 mg Metoprolol Tartrate (Lopressor -) 50 mg PO TID [facility] Last Admin: 02/05/18 05:59 Dose: 50 mg Pantoprazole Sodium (Protonix Iv) 40 mg IVPUSH DAILY [facility] Last Admin: 02/05/18 10:11 Dose: 40 mg - Objective Vital Signs: Vital Signs Temperature 97.8 F 02/05/18 10:00 Pulse Rate 108 H 02/05/18 10:00 Respiratory Rate 20 02/05/18 10:00 Blood Pressure 124/68 02/05/18 10:00 O2 Sat by Pulse Oximetry (%) 98 02/04/18 21:00 Constitutional: Yes: Well Nourished, Calm Eyes: Yes: WNL HENT: Yes: WNL Neck: Yes: WNL Cardiovascular: Yes: Pulse Irregular, S1, S2 Respiratory: Yes: Diminished Gastrointestinal: Yes: Normal Bowel Sounds, Soft Extremities: Yes: WNL Edema: No Labs: CBC, BMP 02/05/18 06:35 02/05/18 06:35 INR, PTT INR 2.53 (0.83-1.09) H 01/27/18 20:10 - ....Imaging Chest X-ray: Report Reviewed, Image Reviewed (IMPROVED R PLEURAL EFFUSION) Problem List - Problems (1) Altered mental status Code(s): R41.82 - ALTERED MENTAL STATUS, UNSPECIFIED (2) Elevated troponin I level Code(s): R74.8 - ABNORMAL LEVELS OF OTHER SERUM ENZYMES (3) Pneumonia Code(s): J18.9 - PNEUMONIA, UNSPECIFIED ORGANISM Qualifiers: Pneumonia type: due to Pneumococcus Laterality: right Lung location: middle lobe of lung Qualified Code(s): J13 - Pneumonia due to Streptococcus pneumoniae (4) Atrial fibrillation Code(s): I48.91 - UNSPECIFIED ATRIAL FIBRILLATION Qualifiers: Atrial fibrillation type: chronic Qualified Code(s): I48.2 - Chronic atrial fibrillation (5) Dementia Code(s): F03.90 - UNSPECIFIED DEMENTIA WITHOUT BEHAVIORAL DISTURBANCE Qualifiers: Dementia type: unspecified type Dementia behavioral disturbance: without behavioral disturbance Qualified Code(s): F03.90 - Unspecified dementia without behavioral disturbance (6) ASHD (arteriosclerotic heart disease) Code(s): I25.10 - ATHSCL HEART DISEASE OF [place] CORONARY ARTERY W/O ANG PCTRS (7) Pleural effusion Code(s): J90 - PLEURAL EFFUSION, NOT ELSEWHERE CLASSIFIED Assessment/Plan IMP: CHF Bilateral Pleural effusion: S/P placement of a right sided pleural decompression catheter. Transudate AMS Elevated troponin likely due to demand ischemia Dementia AFib with RVR HTN PLAN: O2 as needed Aspiration precautions D/C Chest tube monitor lytes,renal function DR SPENCER
--- NOTE | 2018-02-05 12:20 | PN ---
Progress Note (short form) - Note Progress Note: Chief Complaint: sob, altered MS History of Present Illness: no chest pain, palps, dizzy, lightheadedness. asking for water Current Medications Acetaminophen (Tylenol -) 650 mg PO Q6H PRN PRN Reason: FEVER Last Admin: 02/03/18 21:38 Dose: 650 mg Amiodarone HCl (Cordarone -) 200 mg PO DAILY [facility] Last Admin: 02/05/18 09:55 Dose: 200 mg Aspirin (Asa -) 81 mg PO DAILY [facility] Last Admin: 02/05/18 09:55 Dose: 81 mg Atorvastatin Calcium (Lipitor -) 10 mg PO HS [facility] Last Admin: 02/04/18 21:22 Dose: 10 mg Enoxaparin Sodium (Lovenox -) 65 mg SQ BID [facility] Last Admin: 02/05/18 09:54 Dose: 65 mg Metoprolol Tartrate (Lopressor Injection -) 5 mg IVPUSH Q8H PRN PRN Reason: TACHYCARDIA Last Admin: 02/02/18 15:15 Dose: 5 mg Metoprolol Tartrate (Lopressor -) 50 mg PO TID [facility] Last Admin: 02/05/18 05:59 Dose: 50 mg Pantoprazole Sodium (Protonix Iv) 40 mg IVPUSH DAILY [facility] Last Admin: 02/05/18 10:11 Dose: 40 mg - Objective Vital Signs: Vital Signs Period Temp Pulse Resp BP Sys/Melchor Pulse Ox Last 24 Hr 97.1 F-98.2 F 78-110 20-20 95-124/61-74 98 Constitutional: Yes: No Distress, Calm Eyes: No: Sclera Icterus HENT: No: Nasal Congestion Cardiovascular: Yes: Pulse Irregular, S1, S2, Other (PMI non diplaced). No: JVD , Gallop, Murmur Respiratory: Yes: CTA Bilaterally (anteriorly, poor effort). No: Accessory Muscle Use, Rales, Wheezes Gastrointestinal: Yes: Normal Bowel Sounds, Soft. No: Tenderness Musculoskeletal: Yes: Other (No kyphosis) Extremities: No: Cold Edema: No Integumentary: No: Jaundice Neurological: No: Alert, Oriented (x3) Psychiatric: No: Agitated Assessment/Plan ECG 01/27 (ER): rapid afib (135 bpm); nl axis. no path q's. nonsp TWAs (much improved ST-Ts vs prior 04/2017) CT chest: moderate to large bilat effusion with adjacent consolidation/atx. thickened interstitial septa c/w venous congestion. atx and infiltrates RML. ascending aorta 4.[address] head: no acute pathology or blood Echo 03/18: 1. Atrial fibrillation, with HRs ranging from 83-123 bpm (mostly in 90s-110s). 2. The left ventricular size is normal. 3. LA pressure is elevated. 4. Assessment of LVEF is confounded by atrial fibrillation rhythm with very variable R-R intervals. When analyzing beats occurring during average R-R intervals, EF appears to be [id number] reduced, in the range of 45%. Global hypokinesis present. 5. The right ventricle is normal in size and function. 6. Left atrium is severely dilated by volume. 7. The right atrium is mildly enlarged. 8. Trace amount of aortic regurgitation. 9. Moderate mitral regurgitation is present (central jet). Estimated regurgitant volume = 22 cc, ERO 0.15 cm2. 10. Moderate tricuspid regurgitation present. (No systolic flow reversal present in hepatic vein.) 11. Unable to estimate RVSP due to inadequate TR jet spectral doppler profile ( it is at least 35 mmHg). 12. Normal inferior vena cava with normal inspiratory collapse consistent with estimated right atrial pressure of 3 mmHg. 13. There is a trivial pericardial effusion present, consistent with physiologic fluid level. Holter 02/16: Afib, not controlled: average 107, max 145, 12 hours with mean > 100 bpm. no mila's MPI 2014 (persantine): no ischemia; (diaphragmatic attenuation artifact); nl EF , no RWMA Echo 12/2017 EF 30-35%, RV nl size and function, LA/RA mildly dilated, mild to mod MR, mild TR, mild AR, small pericardal effusion tele: afib, HRs 100s-130s, RVR 150s-160s altered MS, lactic acidosis, hypothermia, pneumococcal PNA: -abx per ID YOGI: -baseline creat 1.3-1.4 -YOGI here ? vol depletion based on family's provided hx -creat 2.0-->trended down wth IVF, 1.5 -IVF stopped persistent afib, rapid HR with tachy-CMP: - chronic uncontrolled rates with new-onset mild tachymyopathy on echo 03/18. - rate control c/b low sbp's (sbp's typically 80s-90s) and symptomatic orthostatic hypotension. 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 - lopressor incr'd to tid as outpt early 2017 with better HR control, but had to cut back dose recently due to BPs in 80s-90 with slight orthostatic drop in office. - HRs have remained reasonable in office, may increase here as pt has h/o agitated sundowning in hospital - will continue regular outpt f/u of rate control as doing, and if further LVEF decline despite max tolerated AVN gale regimen, will add amio and then consider AVN ablation/PM - fludrocortisone for BP support - balance is poor, and appears to be the major source of prior h/o multiple falls. however he has been very cautious and had avoided falls for many months now, until recent episode at home several weeks ago. - CHADS VASC 3. per Dr. Fay: previous outpt discussions with pt//dtr in past regarding risks/benefits of AC (with falls/ICH risk), aspirin alone (with incr'd embolic CVA risk) and Watchman device: they have declined Watchman and opted for continued AC with falls precautions for now. - not anemic here, no signs bleeding. -01/31: cont metoprolol to 37.5 mg TID, monitor tele -02/01: rvr, often refusing meds. increased lopressor to 50 tid, - 02/02: RVR, taking lopressor. increased to 75 mg TID, PRN IV lopressor. cont tele. cont ac. was on eliquis but changed to lovenox for ACS as below. -02/03: BP stable on lopressor, occasionally RVR, generally controlled. cont metoprolol 75 mg TID -02/04: low home BP and orthostatic hypotension, started on amiodarone with plan to wean metoprolol - 02/05: HR remains elevated with episodes of RVR 150s-160s. continue amiodarone and metoprolol at current dose. If HR improves would decrease metoprolol to 25 mg TID. cont lovenox cardiomyopathy, ? acute mixed syst/diast CHF: - 03/2017 with newly depressed LVEF on echo, moderate MR--presumed related tachymyopathy. - no prior clinical chf. - currently with nonspecific sx's (alt MS), but CT chest showing signif bilat effusions and suggestion of interstitial edema suspected - BNP 14K, difficult to interpret in setting of signif reduced GFR (no priors available) - EF 30-35% on echo here, lower than prior - had been receiving IVF for YOGI, dc'ed - low dose BB as tolerates. low bp will not tolerate MAJOR/ARB - 02/04: appears well-compensated, despite bilateral effusions persisting on CXR 02/01. repeat CXR today. continue holding diuretics (baseline renal insufficiency , orthostatic hypotension), monitor - holding IVF - s/p right pleural decompression catheter, pulm following CAD s/p [place] and prior PCI's, + NSTEMI: - initially trop in indeterminate range with flat trend x 3 - repeat trop sent 02/01 (done for unclear reasons) showed elevated trop, peaked at 11. ECG unchanged and pt not complaining of sxs but given sharp rise in trop will treat as nstemi (with asa, bb, statin lovenox) - prior patent mlad and Lcx stent with ? residual rca disease (but no ischemia on subsequent stress testing). last stent 2005. positional light-headedness/orthostatic hypotension/chronic dysequilibrium/ repeated falls: - no recent falls - midodrine and fludrocortisone previously tried, then held due to pt/ preferences (concerned about s.e. potential of all new meds) and lack of clear efficacy - fludrocort resumed recently for bp's in 80s persistently--now on hold for effusions/chf
--- NOTE | 2018-02-05 16:06 | PROC ---
Procedure Note Procedure: Order placed by Dr Slaughter to remove chest tube. Plan confirmed with Dr Dye and Dr Blanc. Patient seen and examined at bedside, resting comfortably in NAD. Catheter suture and catheter cut. Pig tail catheter removed with tip fully intact and pressure dressing applied. Patient tolerated the procedure well. A portable chest xray was ordered.
[2018-02-05] MEDS: ATORVASTATIN CA 10 MG TABLET (FP) PO SCH (21:25)
[2018-02-06] MEDS: METOPROLOL TARTRATE 50 MG TABLET (FP) PO SCH ×3 (05:55→22:32)
[2018-02-06 06:24] LABS: BASO % 0.8 % (0-2.0); EOS % 0.5 % (0-4.5); HEMATOCRIT 47.8 % (35.4-49); HEMOGLOBIN 16.2 GM/dL (11.7-16.9); LYMPH % 7.5 % (8-40); MCHC 33.8 g/dl (32.0-35.9); MEAN CELL VOLUME 94.6 fl (80-96); MEAN PLT VOLUME 10.2 fl (7.5-11.1); MONO % 8.3 % (3.8-10.2); NEUT % 82.9 % (42.8-82.8); PLATELET COUNT 151 K/MM3 (134-434); RBC 5.06 M/mm3 (4.00-5.60); RDW 15.8 % (11.9-15.9); WHITE BLOOD COUNT 8.6 K/mm3 (4.0-10.0)
[2018-02-06 06:58] LABS: ANION GAP 5 MMOL/L (8-16); BLOOD UREA NITROGEN 37 mg/dL (7-18); CALCIUM 8.9 mg/dL (8.5-10.1); CHLORIDE 110 mmol/L (98-107); CO2 34 mmol/L (21-32); CREATININE 1.4 mg/dL (0.55-1.3); GLUCOSE,RANDOM 103 mg/dL (74-106); PHOSPHOROUS 2.2 mg/dL (2.5-4.9); POTASSIUM 4.5 mmol/L (3.5-5.1); SODIUM 149 mmol/L (136-145)
--- NOTE | 2018-02-06 09:49 | PN ---
Progress Note (short form) - Note Progress Note: Chief Complaint: sob, altered MS History of Present Illness: no chest pain, palps, dizzy, lightheadedness. mental status improving Current Medications Acetaminophen (Tylenol -) 650 mg PO Q6H PRN PRN Reason: FEVER Last Admin: 02/03/18 21:38 Dose: 650 mg Amiodarone HCl (Cordarone -) 200 mg PO DAILY [facility] Last Admin: 02/05/18 09:55 Dose: 200 mg Aspirin (Asa -) 81 mg PO DAILY [facility] Last Admin: 02/05/18 09:55 Dose: 81 mg Atorvastatin Calcium (Lipitor -) 10 mg PO HS [facility] Last Admin: 02/05/18 21:25 Dose: 10 mg Enoxaparin Sodium (Lovenox -) 65 mg SQ BID [facility] Last Admin: 02/05/18 21:25 Dose: 65 mg Metoprolol Tartrate (Lopressor Injection -) 5 mg IVPUSH Q8H PRN PRN Reason: TACHYCARDIA Last Admin: 02/02/18 15:15 Dose: 5 mg Metoprolol Tartrate (Lopressor -) 50 mg PO TID [facility] Last Admin: 02/06/18 05:55 Dose: 50 mg Pantoprazole Sodium (Protonix Iv) 40 mg IVPUSH DAILY [facility] Last Admin: 02/05/18 10:11 Dose: 40 mg - Objective Vital Signs: Vital Signs Period Temp Pulse Resp BP Sys/Melchor Pulse Ox Last 24 Hr 97.6 F-98.1 F 90-129 20-20 98-124/51-77 98 Constitutional: Yes: No Distress, Calm Eyes: No: Sclera Icterus HENT: No: Nasal Congestion Cardiovascular: Yes: Pulse Irregular, S1, S2, Other (PMI non diplaced). No: JVD , Gallop, Murmur Respiratory: Yes: CTA Bilaterally (anteriorly). No: Accessory Muscle Use, Rales , Wheezes Gastrointestinal: Yes: Normal Bowel Sounds, Soft. No: Tenderness Musculoskeletal: Yes: Other (No kyphosis) Extremities: No: Cold Edema: No Integumentary: No: Jaundice Neurological: No: Alert, Oriented (x3) Psychiatric: No: Agitated Assessment/Plan ECG 01/27 (ER): rapid afib (135 bpm); nl axis. no path q's. nonsp TWAs (much improved ST-Ts vs prior 04/2017) CT chest: moderate to large bilat effusion with adjacent consolidation/atx. thickened interstitial septa c/w venous congestion. atx and infiltrates RML. ascending aorta 4.[address] head: no acute pathology or blood Echo 03/18: 1. Atrial fibrillation, with HRs ranging from 83-123 bpm (mostly in 90s-110s). 2. The left ventricular size is normal. 3. LA pressure is elevated. 4. Assessment of LVEF is confounded by atrial fibrillation rhythm with very variable R-R intervals. When analyzing beats occurring during average R-R intervals, EF appears to be [id number] reduced, in the range of 45%. Global hypokinesis present. 5. The right ventricle is normal in size and function. 6. Left atrium is severely dilated by volume. 7. The right atrium is mildly enlarged. 8. Trace amount of aortic regurgitation. 9. Moderate mitral regurgitation is present (central jet). Estimated regurgitant volume = 22 cc, ERO 0.15 cm2. 10. Moderate tricuspid regurgitation present. (No systolic flow reversal present in hepatic vein.) 11. Unable to estimate RVSP due to inadequate TR jet spectral doppler profile ( it is at least 35 mmHg). 12. Normal inferior vena cava with normal inspiratory collapse consistent with estimated right atrial pressure of 3 mmHg. 13. There is a trivial pericardial effusion present, consistent with physiologic fluid level. Holter 02/16: Afib, not controlled: average 107, max 145, 12 hours with mean > 100 bpm. no mila's MPI 2014 (persantine): no ischemia; (diaphragmatic attenuation artifact); nl EF , no RWMA Echo 12/2017 EF 30-35%, RV nl size and function, LA/RA mildly dilated, mild to mod MR, mild TR, mild AR, small pericardal effusion tele: afib, HRs 100s-130s, RVR 150s-160s altered MS, lactic acidosis, hypothermia, pneumococcal PNA: -abx per ID YOGI: -baseline creat 1.3-1.4 -YOGI here ? vol depletion based on family's provided hx -creat 2.0-->trended down wth IVF, 1.5 -IVF stopped persistent afib, rapid HR with tachy-CMP: - chronic uncontrolled rates with new-onset mild tachymyopathy on echo 03/18. - rate control c/b low sbp's (sbp's typically 80s-90s) and symptomatic orthostatic hypotension. - tolerated dig 0.125 for unknown amt of time with prior treating battery repairer, then toxicicity on 0.25 mg dose--has remained off due to pt unreliable for compliance with regular bloodwork f/u. - lopressor incr'd to tid as outpt early 2017 with better HR control, but had to cut back dose recently due to BPs in 80s-90 with slight orthostatic drop in office. - HRs have remained reasonable in office, may increase here as pt has h/o agitated sundowning in hospital - will continue regular outpt f/u of rate control as doing, and if further LVEF decline despite max tolerated AVN gale regimen, will add amio and then consider AVN ablation/PM - fludrocortisone for BP support - balance is poor, and appears to be the major source of prior h/o multiple falls. however he has been very cautious and had avoided falls for many months now, until recent episode at home several weeks ago. - CHADS VASC 3. per Dr. Fay: previous outpt discussions with pt//dtr in past regarding risks/benefits of AC (with falls/ICH risk), aspirin alone (with incr'd embolic CVA risk) and Watchman device: they have declined Watchman and opted for continued AC with falls precautions for now. - not anemic here, no signs bleeding. -02/04: low home BP and orthostatic hypotension, started on amiodarone with plan to wean metoprolol - 02/05: HR remains elevated with episodes of RVR 150s-160s. continue amiodarone and metoprolol at current dose. If HR improves would decrease metoprolol to 25 mg TID. cont lovenox - 02/06:generally controlled, episodes of RVR. continue metoprolol, amiodarone cardiomyopathy, ? acute mixed syst/diast CHF: - 03/2017 with newly depressed LVEF on echo, moderate MR--presumed related tachymyopathy. - no prior clinical chf. - currently with nonspecific sx's (alt MS), but CT chest showing signif bilat effusions and suggestion of interstitial edema suspected - BNP 14K, difficult to interpret in setting of signif reduced GFR (no priors available) - EF 30-35% on echo here, lower than prior - had been receiving IVF for YOGI, dc'ed - low dose BB as tolerates. low bp will not tolerate MAJOR/ARB - 02/04: appears well-compensated, despite bilateral effusions persisting on CXR 02/01. repeat CXR today. continue holding diuretics (baseline renal insufficiency , orthostatic hypotension), monitor - holding IVF - s/p right pleural decompression catheter, pulm following - chest tube removed 02/05 CAD s/[address] and prior PCI's, + NSTEMI: - initially trop in indeterminate range with flat trend x 3 - repeat trop sent 02/01 (done for unclear reasons) showed elevated trop, peaked at 11. ECG unchanged and pt not complaining of sxs but given sharp rise in trop will treat as nstemi (with asa, bb, statin lovenox) - prior patent mlad and Lcx stent with ? residual rca disease (but no ischemia on subsequent stress testing). last stent 2005. positional light-headedness/orthostatic hypotension/chronic dysequilibrium/ repeated falls: - no recent falls - midodrine and fludrocortisone previously tried, then held due to pt/ preferences (concerned about s.e. potential of all new meds) and lack of clear efficacy - fludrocort resumed recently for bp's in 80s persistently--now on hold for effusions/chf
--- NOTE | 2018-02-06 10:35 | PN ---
Progress Note (short form) - Note Progress Note: Pt seen this AM. Sitting up in bed appears comfortable. Eating breakfast with RN student at bedside. Dressing c/d/i. Pt speaking in full sentences with no issues. No accessory muscle use noted. Satting 98% on RA. CXR stable Please page [phone] with any questions/concerns
--- NOTE | 2018-02-06 11:04 | PN ---
Progress Note, Physician Chief Complaint: Pt lying in bed, aler, confused. coughing noted w/ drinking water. - Current Medication List Current Medications: Active Medications Acetaminophen (Tylenol -) 650 mg PO Q6H PRN PRN Reason: FEVER Last Admin: 02/03/18 21:38 Dose: 650 mg Amiodarone HCl (Cordarone -) 200 mg PO DAILY [facility] Last Admin: 02/05/18 09:55 Dose: 200 mg Aspirin (Asa -) 81 mg PO DAILY [facility] Last Admin: 02/05/18 09:55 Dose: 81 mg Atorvastatin Calcium (Lipitor -) 10 mg PO HS [facility] Last Admin: 02/05/18 21:25 Dose: 10 mg Enoxaparin Sodium (Lovenox -) 65 mg SQ BID [facility] Last Admin: 02/05/18 21:25 Dose: 65 mg Metoprolol Tartrate (Lopressor Injection -) 5 mg IVPUSH Q8H PRN PRN Reason: TACHYCARDIA Last Admin: 02/02/18 15:15 Dose: 5 mg Metoprolol Tartrate (Lopressor -) 50 mg PO TID [facility] Last Admin: 02/06/18 05:55 Dose: 50 mg Pantoprazole Sodium (Protonix Iv) 40 mg IVPUSH DAILY [facility] Last Admin: 02/05/18 10:11 Dose: 40 mg - Objective Vital Signs: Vital Signs Temperature 97.7 F 02/06/18 09:40 Pulse Rate 90 02/06/18 09:40 Respiratory Rate 20 02/06/18 09:40 Blood Pressure 105/65 02/06/18 09:40 O2 Sat by Pulse Oximetry (%) 98 02/05/18 21:00 Constitutional: Yes: Well Nourished, No Distress, Calm Cardiovascular: Yes: Pulse Irregular Respiratory: Yes: Regular, Diminished (poor effort), On Nasal O2. No: Accessory Muscle Use, Tachypnea, Wheezes Gastrointestinal: Yes: WNL, Normal Bowel Sounds, Soft. No: Distention, Tenderness Genitourinary: Yes: Incontinence Extremities: Yes: WNL Edema: No Neurological: Yes: Alert, Confusion Psychiatric: Yes: Alert Labs: CBC, BMP 02/06/18 05:30 02/06/18 05:30 INR, PTT INR 2.53 (0.83-1.09) H 01/27/18 20:10 Assessment/Plan (1) NSTEMI (non-ST elevated myocardial infarction) Assessment/Plan: conservative management per cardiology Code(s): I21.4 - NON-ST ELEVATION (NSTEMI) MYOCARDIAL INFARCTION (2) Pneumonia Assessment/Plan: completed antibx by ID Code(s): J18.9 - PNEUMONIA, UNSPECIFIED ORGANISM Qualifiers: Pneumonia type: due to Pneumococcus Laterality: right Lung location: middle lobe of lung Qualified Code(s): J13 - Pneumonia due to Streptococcus pneumoniae (3) Acute metabolic encephalopathy Assessment/Plan: improving Code(s): G93.41 - METABOLIC ENCEPHALOPATHY (4) CHF exacerbation Assessment/Plan: diuretics on hold cardiology following Code(s): I50.9 - HEART FAILURE, UNSPECIFIED Qualifiers: Heart failure type: combined systolic and diastolic Qualified Code(s): I50.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 (5) Pleural effusion Assessment/Plan: chest tube removed today chest xray am- slightly increasing effusion, no pneumothorax pulm following Code(s): J90 - PLEURAL EFFUSION, NOT ELSEWHERE CLASSIFIED (6) Sepsis Assessment/Plan: improved Code(s): A41.9 - SEPSIS, UNSPECIFIED ORGANISM (7) Acute renal failure Assessment/Plan: improved at baseline Code(s): N17.9 - ACUTE KIDNEY FAILURE, UNSPECIFIED Qualifiers: Acute renal failure type: unspecified Qualified Code(s): N17.9 - Acute kidney failure, unspecified (8) Atrial fibrillation Assessment/Plan: rate uncontrolled continue metoprolol brianne/prn amiodarone started d/c lovenox/asa, will restart eliquis, discussed with cardiology Code(s): I48.91 - UNSPECIFIED ATRIAL FIBRILLATION Qualifiers: Atrial fibrillation type: chronic Qualified Code(s): I48.2 - Chronic atrial fibrillation (9) CKD (chronic kidney disease) stage 3, GFR 30-59 ml/min Assessment/Plan: at baseline Code(s): N18.3 - CHRONIC KIDNEY DISEASE, STAGE 3 (MODERATE) (10) Dementia Assessment/Plan: chronic Code(s): F03.90 - UNSPECIFIED DEMENTIA WITHOUT BEHAVIORAL DISTURBANCE Qualifiers: Dementia type: unspecified type Dementia behavioral disturbance: without behavioral disturbance Qualified Code(s): F03.90 - Unspecified dementia without behavioral disturbance (11) Hypernatremia Assessment/Plan: suspect 2/2 poor po intake encourage po intake and monitor bmp Code(s): E87.0 - HYPEROSMOLALITY AND HYPERNATREMIA (12) Poor fluid intake Assessment/Plan: noted pt to be coughing w/ liquids speech eval consulted- moderate swallowing impairment, recommends MBS MBS ordered monitor Code(s): R63.8 - OTHER SYMPTOMS AND SIGNS CONCERNING FOOD AND FLUID INTAKE
--- NOTE | 2018-02-06 11:17 | PN ---
Progress Note, Physician History of Present Illness: PULMONARY ALERT,NO DISTRESS,CHEST TUBE REMOVED - Current Medication List Current Medications: Active Medications Acetaminophen (Tylenol -) 650 mg PO Q6H PRN PRN Reason: FEVER Last Admin: 02/03/18 21:38 Dose: 650 mg Amiodarone HCl (Cordarone -) 200 mg PO DAILY [facility] Last Admin: 02/05/18 09:55 Dose: 200 mg Aspirin (Asa -) 81 mg PO DAILY [facility] Last Admin: 02/05/18 09:55 Dose: 81 mg Atorvastatin Calcium (Lipitor -) 10 mg PO HS [facility] Last Admin: 02/05/18 21:25 Dose: 10 mg Enoxaparin Sodium (Lovenox -) 65 mg SQ BID [facility] Last Admin: 02/05/18 21:25 Dose: 65 mg Metoprolol Tartrate (Lopressor Injection -) 5 mg IVPUSH Q8H PRN PRN Reason: TACHYCARDIA Last Admin: 02/02/18 15:15 Dose: 5 mg Metoprolol Tartrate (Lopressor -) 50 mg PO TID [facility] Last Admin: 02/06/18 05:55 Dose: 50 mg Pantoprazole Sodium (Protonix Iv) 40 mg IVPUSH DAILY [facility] Last Admin: 02/05/18 10:11 Dose: 40 mg - Objective Vital Signs: Vital Signs Temperature 97.7 F 02/06/18 09:40 Pulse Rate 90 02/06/18 09:40 Respiratory Rate 20 02/06/18 09:40 Blood Pressure 105/65 02/06/18 09:40 O2 Sat by Pulse Oximetry (%) 98 02/05/18 21:00 Constitutional: Yes: Well Nourished, Calm Eyes: Yes: WNL HENT: Yes: WNL Neck: Yes: WNL Cardiovascular: Yes: Pulse Irregular, S1, S2 Respiratory: Yes: Diminished, Other (POOR INSPIRATORY EFFORT) Gastrointestinal: Yes: Normal Bowel Sounds, Soft Extremities: Yes: WNL Edema: No Labs: CBC, BMP 02/06/18 05:30 02/06/18 05:30 INR, PTT INR 2.53 (0.83-1.09) H 01/27/18 20:10 Problem List - Problems (1) Altered mental status Code(s): R41.82 - ALTERED MENTAL STATUS, UNSPECIFIED (2) Elevated troponin I level Code(s): R74.8 - ABNORMAL LEVELS OF OTHER SERUM ENZYMES (3) Pneumonia Code(s): J18.9 - PNEUMONIA, UNSPECIFIED ORGANISM Qualifiers: Pneumonia type: due to Pneumococcus Laterality: right Lung location: middle lobe of lung Qualified Code(s): J13 - Pneumonia due to Streptococcus pneumoniae (4) Atrial fibrillation Code(s): I48.91 - UNSPECIFIED ATRIAL FIBRILLATION Qualifiers: Atrial fibrillation type: chronic Qualified Code(s): I48.2 - Chronic atrial fibrillation (5) Dementia Code(s): F03.90 - UNSPECIFIED DEMENTIA WITHOUT BEHAVIORAL DISTURBANCE Qualifiers: Dementia type: unspecified type Dementia behavioral disturbance: without behavioral disturbance Qualified Code(s): F03.90 - Unspecified dementia without behavioral disturbance (6) ASHD (arteriosclerotic heart disease) Code(s): I25.10 - ATHSCL HEART DISEASE OF [place] CORONARY ARTERY W/O ANG PCTRS (7) Pleural effusion Code(s): J90 - PLEURAL EFFUSION, NOT ELSEWHERE CLASSIFIED Assessment/Plan IMP: CHF Bilateral Pleural effusion: S/P placement of a right sided pleural decompression catheter. Transudate AMS Elevated troponin likely due to demand ischemia Dementia AFib with RVR HTN PLAN: O2 as needed Aspiration precautions monitor lytes,renal function chest x-ray rate control DR SPENCER
[2018-02-06] MEDS: ASPIRIN 81 MG CHEWABLE TABLETS PO SCH (11:18)
[2018-02-06] MEDS: ENOXAPARIN NA (PORCINE) 80 MG/0.8 ML DISP.SYRIN SQ SCH (11:19)
[2018-02-06] MEDS: AMIODARONE HCL 200 MG TABLET (FP) PO SCH (11:19)
[2018-02-06] MEDS: PANTOPRAZOLE SODIUM 40 MG VIAL IVPUSH SCH (11:38)
--- NOTE | 2018-02-06 11:59 | CONSULT ---
Admitting History and Physical - Primary Care Physician PCP: Aranza Montiel - Admission History of Present Illness: 86 yrs old man poor historian BIB family for altered mental status patient has multiple co morbidities H/O Dementia, Chronic Atrial Fibrillation rate controlled on Eliquis, CAD s/p stent, HTN, HLD, Prostate cancer s/p RT and Ileal Conduit yeras ago on suprapubic nephrostomy recurrent UTI,,developed lethargy confusion and disorientation. CT RML CHF Bilateral Pleural effusion:Transudate AMS Elevated troponin likely due to demand ischemia Dementia AFib with RVR HTN Pneumococcal pneumonia Kayexelate ordered/f/u K+ Much improved per EMR. Reported to cough while drinking liquids. Selected Entries 02/05/18 02/05/18 02/05/18 10:29 14:00 19:37 Breakfast 50% Lunch 25% Supper 25% Temperature 02/06/18 02/06/18 02/06/18 01:36 05:54 09:40 Breakfast Lunch Supper Temperature 98.1 F 97.8 F 97.7 F Laboratory Tests 02/06/18 05:30 WBC 8.6 This is my first consult with this pt. DATA WAREHOUSING MANAGER reports he does not eat the reg food, just drinks. Seemed to tolerate Ensure yesterday. 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 More confused today per DATA WAREHOUSING MANAGER.Chest tube removed yesterday. 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) Dermatology: Yes: Squamous Cell (Right pinna scalp) - Past Surgical History Past Surgical History: Yes: Appendectomy, Ileal Conduit (Urostomy), Stent (See above) - Smoking History Smoking history: Never smoked Have you smoked in the past 12 months: No Aproximately how many cigarettes per day: 0 - Alcohol/Substance Use Hx Alcohol Use: No History of Substance Use: reports: None - Social History ADL: Independent History of Recent Travel: No History - Admission Reason For Visit: URINARY TRACT INFECTION,ATRIAL FRIBRILLATION, - Diagnostics X-ray: Report Reviewed CT Scan: Report Reviewed - General Mental Status: Forgetful, Vague, Confused Attention: Distractible, Mild Impairment Ability to Follow Directions: Fair Head/Neck Control: Fair - Hearing Hearing: Impaired Hearing Aide: Yes With Patient: Yes Speech Evaluation - Communication Primary Language: ROMANIAN Communication: Yes: Simple Responses (tangential eg is that your cousin?) - Speech Production Able to Make Needs Known: Yes: Mildly Impaired Intelligibility: Yes: Mildly Impaired - Speech Characteristics Voice Loudness: Mildly Soft/Quiet Voice Pitch: Yes: Mildly High Voice Phonatory-based Quality: Yes: Dysphonia Speech Clarity: < 75% Nasal Resonance: Normal Articulation: Yes: Precise - Language/Auditory Comprehension Follows: Yes: 1 Stage Simple Commands - Language/Verbal Expression Able to Communicate Wants and Needs: Yes: WNL - Swallow Evaluation/Bedside Assessment Current Nutritional Intake: Regular, Thin Liquids Dentition: Yes: Edentulous (upper. Dentures out?), Dental Appliance Lower Facial Symmetry at Rest: Symmetrical Jaw Position: Open at Rest (oral dryness) Against Resistance Opening: Weak Against Resistance Closing: Weak Lingual Movement: Symmetric Laryngeal Elevation: Impaired Laryngeal Movement: Reduced Excursion, Labored,delay initiation, Reduced Velocity Rate of Intake: Impulsive Bolus Size: Large Labial Seal: WFL Oral Prep Time: WFL A-P Transit: WFL Timing of Swallow: Delayed Coughing/Throat Clear: Yes (thin liquid) Change in Voice: Yes Recommendations - Speech Evaluation, Impression/Plan Impression: Responsive cough and vocal wetness with thin liquidsd, immediately attempted to grab more water. Confused. Dysphonic. Open mouth posture. Likely aspirating on thin liquid. Not eating reg food ordered. - Disposition Discharge to: [facility] Facility - Dysphagia Impressions/Plan Swallowing Skills: Impaired Dysphagia Impressions: Moderate Impairment, Suspect Aspiration *Silent aspiration: cannot be R/O at bedside Dysphagia Treatment Plan: Small Bites, Chin Tuck/Down, Trial Feedings, Facilitative Feeding, Safe Rate, 1/2 tsp. at a time Recommendations: MBS w Esophagus - Recommendations Diet Consistency: Dysphagia Pureed Medication Administration: Crushed with applesauce Liquids: [place] Thick Supplement: Magic Cup, Other (Ensure Compact)
[2018-02-06] MEDS: ATORVASTATIN CA 10 MG TABLET (FP) PO SCH (22:32)
[2018-02-06] MEDS: APIXABAN 5 MG TABLET PO SCH (22:32)
[2018-02-07] MEDS: METOPROLOL TARTRATE 50 MG TABLET (FP) PO SCH ×3 (06:16→21:39)
[2018-02-07 06:37] LABS: BASO % 0.9 % (0-2.0); EOS % 1.2 % (0-4.5); HEMATOCRIT 45.3 % (35.4-49); HEMOGLOBIN 14.4 GM/dL (11.7-16.9); LYMPH % 11.4 % (8-40); MCH 30.1 pg (25.7-33.7); MCHC 31.8 g/dl (32.0-35.9); MEAN CELL VOLUME 94.7 fl (80-96); MEAN PLT VOLUME 9.9 fl (7.5-11.1); MONO % 10.7 % (3.8-10.2); NEUT % 75.8 % (42.8-82.8); PLATELET COUNT 134 K/MM3 (134-434); RBC 4.78 M/mm3 (4.00-5.60); RDW 15.9 % (11.9-15.9); WHITE BLOOD COUNT 7.1 K/mm3 (4.0-10.0)
[2018-02-07 07:04] LABS: ANION GAP 7 MMOL/L (8-16); BLOOD UREA NITROGEN 35 mg/dL (7-18); CALCIUM 8.6 mg/dL (8.5-10.1); CHLORIDE 110 mmol/L (98-107); CO2 33 mmol/L (21-32); CREATININE 1.4 mg/dL (0.55-1.3); GLUCOSE,RANDOM 87 mg/dL (74-106); MAGNESIUM 2.2 mg/dL (1.8-2.4); PHOSPHOROUS 2.5 mg/dL (2.5-4.9); POTASSIUM 4.6 mmol/L (3.5-5.1); SODIUM 149 mmol/L (136-145)
--- NOTE | 2018-02-07 09:23 | PN ---
Progress Note, Physician Chief Complaint: Pt lying in bed, aler, confused. unable to obtain - Current Medication List Current Medications: Active Medications Amiodarone HCl (Cordarone -) 200 mg PO DAILY [facility] Last Admin: 02/06/18 11:19 Dose: 200 mg Apixaban (Eliquis -) 5 mg PO BID [facility] Last Admin: 02/06/18 22:32 Dose: 5 mg Atorvastatin Calcium (Lipitor -) 10 mg PO HS [facility] Last Admin: 02/06/18 22:32 Dose: 10 mg Dextrose (D5w -) 1,000 mls @ 42 mls/hr IV ASDIR [facility] Metoprolol Tartrate (Lopressor Injection -) 5 mg IVPUSH Q8H PRN PRN Reason: TACHYCARDIA Last Admin: 02/02/18 15:15 Dose: 5 mg Metoprolol Tartrate (Lopressor -) 50 mg PO TID [facility] Last Admin: 02/07/18 06:16 Dose: 50 mg Pantoprazole Sodium (Protonix Iv) 40 mg IVPUSH DAILY [facility] Last Admin: 02/06/18 11:38 Dose: 40 mg - Objective Vital Signs: Vital Signs Temperature 97.4 F L 02/07/18 06:00 Pulse Rate 113 H 02/07/18 06:00 Respiratory Rate 18 02/07/18 06:00 Blood Pressure 103/69 02/07/18 06:00 O2 Sat by Pulse Oximetry (%) 98 02/06/18 21:00 Constitutional: Yes: No Distress, Thin Cardiovascular: Yes: Pulse Irregular Respiratory: Yes: Regular, Diminished (poor effort), On Nasal O2. No: Accessory Muscle Use, Tachypnea, Wheezes Gastrointestinal: Yes: WNL, Normal Bowel Sounds, Soft. No: Distention, Tenderness Genitourinary: Yes: Incontinence Edema: No Neurological: Yes: Alert, Confusion Psychiatric: Yes: Alert Labs: CBC, BMP 02/07/18 05:30 02/07/18 05:30 INR, PTT INR 2.53 (0.83-1.09) H 01/27/18 20:10 Assessment/Plan (1) NSTEMI (non-ST elevated myocardial infarction) Assessment/Plan: conservative management per cardiology Code(s): I21.4 - NON-ST ELEVATION (NSTEMI) MYOCARDIAL INFARCTION (2) Pneumonia Assessment/Plan: completed antibx by ID Code(s): J18.9 - PNEUMONIA, UNSPECIFIED ORGANISM Qualifiers: Pneumonia type: due to Pneumococcus Laterality: right Lung location: middle lobe of lung Qualified Code(s): J13 - Pneumonia due to Streptococcus pneumoniae (3) Acute metabolic encephalopathy Assessment/Plan: improving Code(s): G93.41 - METABOLIC ENCEPHALOPATHY (4) CHF exacerbation Assessment/Plan: diuretics on hold cardiology following Code(s): I50.9 - HEART FAILURE, UNSPECIFIED Qualifiers: Heart failure type: combined systolic and diastolic Qualified Code(s): I50.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 (5) Pleural effusion Assessment/Plan: chest tube removed chest xray- slightly increasing effusion, no pneumothorax pulm following Code(s): J90 - PLEURAL EFFUSION, NOT ELSEWHERE CLASSIFIED (6) Sepsis Assessment/Plan: improved Code(s): A41.9 - SEPSIS, UNSPECIFIED ORGANISM (7) Acute renal failure Assessment/Plan: improved at baseline Code(s): N17.9 - ACUTE KIDNEY FAILURE, UNSPECIFIED Qualifiers: Acute renal failure type: unspecified Qualified Code(s): N17.9 - Acute kidney failure, unspecified (8) Atrial fibrillation Assessment/Plan: rate uncontrolled continue metoprolol brianne/amiodarone continue eliquis Code(s): I48.91 - UNSPECIFIED ATRIAL FIBRILLATION Qualifiers: Atrial fibrillation type: chronic Qualified Code(s): I48.2 - Chronic atrial fibrillation (9) CKD (chronic kidney disease) stage 3, GFR 30-59 ml/min Assessment/Plan: at baseline Code(s): N18.3 - CHRONIC KIDNEY DISEASE, STAGE 3 (MODERATE) (10) Dementia Assessment/Plan: chronic Code(s): F03.90 - UNSPECIFIED DEMENTIA WITHOUT BEHAVIORAL DISTURBANCE Qualifiers: Dementia type: unspecified type Dementia behavioral disturbance: without behavioral disturbance Qualified Code(s): F03.90 - Unspecified dementia without behavioral disturbance (11) Hypernatremia Assessment/Plan: suspect 2/2 poor po intake encourage po intake D5 IVF started monitor bmp Code(s): E87.0 - HYPEROSMOLALITY AND HYPERNATREMIA (12) Poor fluid intake Assessment/Plan: noted pt to be coughing w/ liquids on dysphagia diet- speech following MBS pending Code(s): R63.8 - OTHER SYMPTOMS AND SIGNS CONCERNING FOOD AND FLUID INTAKE
[2018-02-07] MEDS: PANTOPRAZOLE SODIUM 40 MG VIAL IVPUSH SCH (10:18)
[2018-02-07] MEDS: APIXABAN 5 MG TABLET PO SCH ×2 (10:18→21:39)
[2018-02-07] MEDS: AMIODARONE HCL 200 MG TABLET (FP) PO SCH (10:18)
[2018-02-07] MEDS: DEXTROSE 5%-WATER - 1,000 ML IV SCH (10:18)
--- NOTE | 2018-02-07 10:28 | PN ---
Progress Note (short form) - Note Progress Note: cc: alt ms s: no cp sob palps dizzy Current Medications Generic Name Dose Route Start Last Admin Trade Name Freq PRN Reason Stop Dose Admin Amiodarone HCl 200 mg 02/05/18 10:00 02/07/18 10:18 Cordarone - PO 200 mg DAILY ROSALIND Administration Apixaban 5 mg 02/06/18 22:00 02/07/18 10:18 Eliquis - PO 5 mg BID ROSALIND Administration Atorvastatin Calcium 10 mg 01/28/18 22:00 02/06/18 22:32 Lipitor - PO 10 mg HS ROSALIND Administration Dextrose 1,000 mls @ 42 mls/hr 02/07/18 09:00 02/07/18 10:18 D5w - IV 42 mls/hr ASDIR ROSALIND Administration Metoprolol Tartrate 5 mg 01/28/18 17:17 02/02/18 15:15 Lopressor Injection - IVPUSH 5 mg Q8H PRN Administration TACHYCARDIA Metoprolol Tartrate 50 mg 02/04/18 11:39 02/07/18 06:16 Lopressor - PO 50 mg TID ROSALIND Administration Pantoprazole Sodium 40 mg 01/28/18 10:00 02/07/18 10:18 Protonix Iv IVPUSH 40 mg DAILY ROSALIND Administration Vital Signs: Vital Signs Period Temp Pulse Resp BP Sys/Melchor Pulse Ox Last 24 Hr 97.3 F-98.3 F 71-123 -18 90-116/50-73 98 Constitutional: Yes: Well Nourished, No Distress Eyes: No: Sclera Icterus Respiratory: Yes: CTA Bilaterally, poor effort. No: Accessory Muscle Use, Rales , Wheezes Gastrointestinal: Yes: Normal Bowel Sounds. No: Distention, Hepatomegaly, Palpable Mass, Tenderness Cardiovascular: Yes: Pulse Irregular JVD: No Heart Sounds: Yes: S1, S2. No: Gallop Murmur: No: Systolic Murmur, Diastolic Murmur Extremities: No: Cool, Cyanosis Edema: casey pedal edema Integumentary: No: Jaundice Neurological: No: awake, confused Psychiatric: No: Agitated CBC, BMP 02/07/18 05:30 02/07/18 05:30 Assessment/Plan ECG 01/27 (ER): rapid afib (135 bpm); nl axis. no path q's. nonsp TWAs (much improved ST-Ts vs prior 04/2017) CT chest: moderate to large bilat effusion with adjacent consolidation/atx. thickened interstitial septa c/w venous congestion. atx and infiltrates RML. ascending aorta 4.[address] head: no acute pathology or blood Echo 03/18: 1. Atrial fibrillation, with HRs ranging from 83-123 bpm (mostly in 90s-110s). 2. The left ventricular size is normal. 3. LA pressure is elevated. 4. Assessment of LVEF is confounded by atrial fibrillation rhythm with very variable R-R intervals. When analyzing beats occurring during average R-R intervals, EF appears to be zwpfxd-ry-zoekqhfzzs reduced, in the range of 45%. Global hypokinesis present. 5. The right ventricle is normal in size and function. 6. Left atrium is severely dilated by volume. 7. The right atrium is mildly enlarged. 8. Trace amount of aortic regurgitation. 9. Moderate mitral regurgitation is present (central jet). Estimated regurgitant volume = 22 cc, ERO 0.15 cm2. 10. Moderate tricuspid regurgitation present. (No systolic flow reversal present in hepatic vein.) 11. Unable to estimate RVSP due to inadequate TR jet spectral doppler profile ( it is at least 35 mmHg). 12. Normal inferior vena cava with normal inspiratory collapse consistent with estimated right atrial pressure of 3 mmHg. 13. There is a trivial pericardial effusion present, consistent with physiologic fluid level. Holter 02/16: Afib, not controlled: average 107, max 145, 12 hours with mean > 100 bpm. no mila's MPI 2014 (persantine): no ischemia; (diaphragmatic attenuation artifact); nl EF , no RWMA tele: afib, mostly rate controlled echo 12/2017 EF 30-35%, RV nl size and function, LA/RA mildly dilated, mild to mod MR, mild TR, mild AR, small pericardal effusion altered MS, lactic acidosis, hypothermia, pneumococcal PNA: -abx per ID YOGI: -baseline creat 1.3-1.4 -YOGI here ? vol depletion based on family's provided hx -creat 2.0-->trended down wth IVF, 1.5 -IVF stopped persistent afib, rapid HR with tachy-CMP: - chronic uncontrolled rates with new-onset mild tachymyopathy on echo 03/18. - rate control c/b low sbp's (sbp's typically 80s-90s) and symptomatic orthostatic hypotension. 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 - lopressor incr'd to tid as outpt early 2017 with better HR control, but had to cut back dose recently due to BPs in 80s-90 with slight orthostatic drop in office. - HRs have remained reasonable in office, may increase here as pt has h/o agitated sundowning in hospital - will continue regular outpt f/u of rate control as doing, and if further LVEF decline despite max tolerated AVN gale regimen, will add amio and then consider AVN ablation/PM - fludrocortisone for BP support - balance is poor, and appears to be the major source of prior h/o multiple falls. however he has been very cautious and had avoided falls for many months now, until recent episode at home several weeks ago. - CHADS VASC 3. per Dr. Fay: previous outpt discussions with pt//dtr in past regarding risks/benefits of AC (with falls/ICH risk), aspirin alone (with incr'd embolic CVA risk) and Watchman device: they have declined Watchman and opted for continued AC with falls precautions for now. - not anemic here, no signs bleeding. -01/31: cont metoprolol to 37.5 mg TID, monitor tele -02/01: rvr, often refusing meds. increased lopressor to 50 tid, - 02/02: RVR, taking lopressor. increased to 75 mg TID, PRN IV lopressor. cont tele. cont ac. was on eliquis but changed to lovenox for ACS as below. -02/03: BP stable on lopressor, occasionally RVR, generally controlled. cont metoprolol 75 mg TID -02/04: low home BP and orthostatic hypotension, started on amiodarone with plan to wean metoprolol - 02/05: HR remains elevated with episodes of RVR 150s-160s. -02/07: continue amiodarone and metoprolol at current doses. If HR improves would decrease metoprolol to 25 mg TID. cont lovenox cardiomyopathy, ? acute mixed syst/diast CHF: - 03/2017 with newly depressed LVEF on echo, moderate MR--presumed related tachymyopathy. - no prior clinical chf. - currently with nonspecific sx's (alt MS), but CT chest showing signif bilat effusions and suggestion of interstitial edema suspected - BNP 14K, difficult to interpret in setting of signif reduced GFR (no priors available) - EF 30-35% on echo here, lower than prior - had been receiving IVF for YOGI, dc'ed - low dose BB as tolerates. low bp will not tolerate MAJOR/ARB - 02/04: appears well-compensated, despite bilateral effusions persisting on CXR. continue holding diuretics (baseline renal insufficiency, orthostatic hypotension), monitor - holding IVF - s/p right pleural decompression catheter, now removed, pulm following CAD s/p [place] and prior PCI's, + NSTEMI: - initially trop in indeterminate range with flat trend x 3 - repeat trop sent 02/01 (done for unclear reasons) showed elevated trop, peaked at 11. ECG unchanged and pt not complaining of sxs but given sharp rise in trop treated as nstemi (with asa, bb, statin lovenox)-->will cont with med management of cad - prior patent mlad and Lcx stent with ? residual rca disease (but no ischemia on subsequent stress testing). last stent 2005. positional light-headedness/orthostatic hypotension/chronic dysequilibrium/ repeated falls: - no recent falls - midodrine and fludrocortisone previously tried, then held due to pt/ preferences (concerned about s.e. potential of all new meds) and lack of clear efficacy - fludrocort resumed recently for bp's in 80s persistently--now on hold for effusions/chf
--- NOTE | 2018-02-07 12:22 | PN ---
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 Confused. On puree/nectar. Aspiration suspected. MBS 02/08?
--- NOTE | 2018-02-07 13:21 | PN ---
Progress Note (short form) - Note Progress Note: PULMONARY Confused but denies shortness of breath or chest pain. Vital Signs Period Temp Pulse Resp BP Sys/Melchor Pulse Ox Last 24 Hr 97.3 F-98.3 F 71-123 18-18 96-116/50-73 98 Gen: NAD, confused Heart: RRR Lung: decreased breath sounds at the bases Abd: soft, nontender Ext: no edema CBC, BMP 02/07/18 05:30 02/07/18 05:30 Active Medications Amiodarone HCl (Cordarone -) 200 mg PO DAILY [facility] Last Admin: 02/07/18 10:18 Dose: 200 mg Apixaban (Eliquis -) 5 mg PO BID [facility] Last Admin: 02/07/18 10:18 Dose: 5 mg Atorvastatin Calcium (Lipitor -) 10 mg PO HS [facility] Last Admin: 02/06/18 22:32 Dose: 10 mg Dextrose (D5w -) 1,000 mls @ 42 mls/hr IV ASDIR [facility] Last Admin: 02/07/18 10:18 Dose: 42 mls/hr Metoprolol Tartrate (Lopressor Injection -) 5 mg IVPUSH Q8H PRN PRN Reason: TACHYCARDIA Last Admin: 02/02/18 15:15 Dose: 5 mg Metoprolol Tartrate (Lopressor -) 50 mg PO TID [facility] Last Admin: 02/07/18 06:16 Dose: 50 mg Pantoprazole Sodium (Protonix Iv) 40 mg IVPUSH DAILY [facility] Last Admin: 02/07/18 10:18 Dose: 40 mg A/P Acute on Chronic Systolic Heart Failure Pleural Effusion s/p right pigtail catheter - Transudte +Troponins likely Demand Ischemia Atrial Fibrillation with RVR HTN Dementia - lasix as needed - monitor urine output, creatinine - rate control - continue anticoagulation - O2 to keep SpO2 >90%
[2018-02-07] MEDS: ATORVASTATIN CA 10 MG TABLET (FP) PO SCH (21:39)
[2018-02-08] MEDS: METOPROLOL TARTRATE 50 MG TABLET (FP) PO SCH ×3 (05:47→21:58)
[2018-02-08 08:07] LABS: ANION GAP 6 MMOL/L (8-16); BLOOD UREA NITROGEN 31 mg/dL (7-18); CALCIUM 8.2 mg/dL (8.5-10.1); CHLORIDE 110 mmol/L (98-107); CO2 31 mmol/L (21-32); CREATININE 1.3 mg/dL (0.55-1.3); GLUCOSE,RANDOM 97 mg/dL (74-106); MAGNESIUM 2.2 mg/dL (1.8-2.4); POTASSIUM 4.3 mmol/L (3.5-5.1); SODIUM 147 mmol/L (136-145)
[2018-02-08 08:19] LABS: BASO % 1.2 % (0-2.0); EOS % 2.2 % (0-4.5); HEMOGLOBIN 14.2 GM/dL (11.7-16.9); LYMPH % 12.7 % (8-40); MCH 30.4 pg (25.7-33.7); MCHC 32.3 g/dl (32.0-35.9); MEAN CELL VOLUME 94.1 fl (80-96); MEAN PLT VOLUME 10.2 fl (7.5-11.1); NEUT % 74.9 % (42.8-82.8); PLATELET COUNT 131 K/MM3 (134-434); RBC 4.67 M/mm3 (4.00-5.60); RDW 15.5 % (11.9-15.9); WHITE BLOOD COUNT 6.9 K/mm3 (4.0-10.0)
--- NOTE | 2018-02-08 10:33 | PN ---
Progress Note (short form) - Note Progress Note: cc: alt ms s: no cp sob palps dizzy Current Medications Generic Name Dose Route Start Last Admin Trade Name Freq PRN Reason Stop Dose Admin Amiodarone HCl 200 mg 02/05/18 10:00 02/07/18 10:18 Cordarone - PO 200 mg DAILY ROSALIND Administration Apixaban 5 mg 02/06/18 22:00 02/07/18 21:39 Eliquis - PO 5 mg BID ROSALIND Administration Atorvastatin Calcium 10 mg 01/28/18 22:00 02/07/18 21:39 Lipitor - PO 10 mg HS ROSALIND Administration Dextrose 1,000 mls @ 42 mls/hr 02/07/18 09:00 02/07/18 10:18 D5w - IV 42 mls/hr ASDIR ROSALIND Administration Metoprolol Tartrate 5 mg 01/28/18 17:17 02/02/18 15:15 Lopressor Injection - IVPUSH 5 mg Q8H PRN Administration TACHYCARDIA Metoprolol Tartrate 50 mg 02/04/18 11:39 02/08/18 05:47 Lopressor - PO 50 mg TID ROSALIND Administration Pantoprazole Sodium 40 mg 01/28/18 10:00 02/07/18 10:18 Protonix Iv IVPUSH 40 mg DAILY ROSALIND Administration Vital Signs: Vital Signs Period Temp Pulse Resp BP Sys/Melchor Pulse Ox Last 24 Hr 96.4 F-98.8 F 69-106 18-20 99-107/40-69 95-96 Constitutional: Yes: Well Nourished, No Distress Eyes: No: Sclera Icterus Respiratory: Yes: CTA Bilaterally, poor effort. No: Accessory Muscle Use, Rales , Wheezes Gastrointestinal: Yes: Normal Bowel Sounds. No: Distention, Hepatomegaly, Palpable Mass, Tenderness Cardiovascular: Yes: Pulse Irregular JVD: No Heart Sounds: Yes: S1, S2. No: Gallop Murmur: No: Systolic Murmur, Diastolic Murmur Extremities: No: Cool, Cyanosis Edema: casey pedal edema Integumentary: No: Jaundice Neurological: No: awake, confused Psychiatric: No: Agitated CBC, BMP 02/08/18 05:30 02/08/18 05:30 Assessment/Plan ECG 01/27 (ER): rapid afib (135 bpm); nl axis. no path q's. nonsp TWAs (much improved ST-Ts vs prior 04/2017) CT chest: moderate to large bilat effusion with adjacent consolidation/atx. thickened interstitial septa c/w venous congestion. atx and infiltrates RML. ascending aorta 4.[address] head: no acute pathology or blood Echo 03/18: 1. Atrial fibrillation, with HRs ranging from 83-123 bpm (mostly in 90s-110s). 2. The left ventricular size is normal. 3. LA pressure is elevated. 4. Assessment of LVEF is confounded by atrial fibrillation rhythm with very variable R-R intervals. When analyzing beats occurring during average R-R intervals, EF appears to be cwjmwv-jh-sfqxkwcian reduced, in the range of 45%. Global hypokinesis present. 5. The right ventricle is normal in size and function. 6. Left atrium is severely dilated by volume. 7. The right atrium is mildly enlarged. 8. Trace amount of aortic regurgitation. 9. Moderate mitral regurgitation is present (central jet). Estimated regurgitant volume = 22 cc, ERO 0.15 cm2. 10. Moderate tricuspid regurgitation present. (No systolic flow reversal present in hepatic vein.) 11. Unable to estimate RVSP due to inadequate TR jet spectral doppler profile ( it is at least 35 mmHg). 12. Normal inferior vena cava with normal inspiratory collapse consistent with estimated right atrial pressure of 3 mmHg. 13. There is a trivial pericardial effusion present, consistent with physiologic fluid level. Holter 02/16: Afib, not controlled: average 107, max 145, 12 hours with mean > 100 bpm. no mila's MPI 2014 (persantine): no ischemia; (diaphragmatic attenuation artifact); nl EF , no RWMA tele: afib, rate ok echo 12/2017 EF 30-35%, RV nl size and function, LA/RA mildly dilated, mild to mod MR, mild TR, mild AR, small pericardal effusion altered MS, lactic acidosis, hypothermia, pneumococcal PNA: -abx per ID YOGI: -baseline creat 1.3-1.4 -YOGI here ? vol depletion based on family's provided hx -creat 2.0-->trended down wth IVF, 1.5 -IVF stopped persistent afib, rapid HR with tachy-CMP: - chronic uncontrolled rates with new-onset mild tachymyopathy on echo 03/18. - rate control c/b low sbp's (sbp's typically 80s-90s) and symptomatic orthostatic hypotension. 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 - lopressor incr'd to tid as outpt early 2017 with better HR control, but had to cut back dose recently due to BPs in 80s-90 with slight orthostatic drop in office. - HRs have remained reasonable in office, may increase here as pt has h/o agitated sundowning in hospital - will continue regular outpt f/u of rate control as doing, and if further LVEF decline despite max tolerated AVN gale regimen, will add amio and then consider AVN ablation/PM - fludrocortisone for BP support - balance is poor, and appears to be the major source of prior h/o multiple falls. however he has been very cautious and had avoided falls for many months now, until recent episode at home several weeks ago. - CHADS VASC 3. per Dr. Fay: previous outpt discussions with pt//dtr in past regarding risks/benefits of AC (with falls/ICH risk), aspirin alone (with incr'd embolic CVA risk) and Watchman device: they have declined Watchman and opted for continued AC with falls precautions for now. - not anemic here, no signs bleeding. -01/31: cont metoprolol to 37.5 mg TID, monitor tele -02/01: rvr, often refusing meds. increased lopressor to 50 tid, - 02/02: RVR, taking lopressor. increased to 75 mg TID, PRN IV lopressor. cont tele. cont ac. was on eliquis but changed to lovenox for ACS as below. -02/03: BP stable on lopressor, occasionally RVR, generally controlled. cont metoprolol 75 mg TID -02/04: low home BP and orthostatic hypotension, started on amiodarone with plan to wean metoprolol - 02/05: HR remains elevated with episodes of RVR 150s-160s. -02/07-: continue amiodarone and metoprolol at current doses. If HR improves would decrease metoprolol to 25 mg TID. cont lovenox cardiomyopathy, ? acute mixed syst/diast CHF: - 03/2017 with newly depressed LVEF on echo, moderate MR--presumed related tachymyopathy. - no prior clinical chf. - currently with nonspecific sx's (alt MS), but CT chest showing signif bilat effusions and suggestion of interstitial edema suspected - BNP 14K, difficult to interpret in setting of signif reduced GFR (no priors available) - EF 30-35% on echo here, lower than prior - had been receiving IVF for YOGI, dc'ed - low dose BB as tolerates. low bp will not tolerate MAJOR/ARB - 02/04-9: appears well-compensated, despite bilateral effusions persisting on CXR. continue holding diuretics (baseline renal insufficiency, orthostatic hypotension), monitor - holding IVF - s/p right pleural decompression catheter, now removed, pulm following CAD s/p [place] and prior PCI's, + NSTEMI: - initially trop in indeterminate range with flat trend x 3 - repeat trop sent 02/01 (done for unclear reasons) showed elevated trop, peaked at 11. ECG unchanged and pt not complaining of sxs but given sharp rise in trop treated as nstemi (with asa, bb, statin lovenox)-->will cont with med management of cad - prior patent mlad and Lcx stent with ? residual rca disease (but no ischemia on subsequent stress testing). last stent 2005. positional light-headedness/orthostatic hypotension/chronic dysequilibrium/ repeated falls: - no recent falls - midodrine and fludrocortisone previously tried, then held due to pt/ preferences (concerned about s.e. potential of all new meds) and lack of clear efficacy - fludrocort resumed recently for bp's in 80s persistently--now on hold for effusions/chf
[2018-02-08] MEDS: DEXTROSE 5%-WATER - 1,000 ML IV SCH (11:21)
[2018-02-08] MEDS: AMIODARONE HCL 200 MG TABLET (FP) PO SCH (11:22)
[2018-02-08] MEDS: APIXABAN 5 MG TABLET PO SCH ×2 (11:22→21:58)
[2018-02-08] MEDS: PANTOPRAZOLE SODIUM 40 MG VIAL IVPUSH SCH (11:22)
--- NOTE | 2018-02-08 11:50 | PN ---
Progress Note, Physician History of Present Illness: PULMONARY AWAKE,COMFORTABLE,-RESP DISTRESS - Current Medication List Current Medications: Active Medications Amiodarone HCl (Cordarone -) 200 mg PO DAILY [facility] Last Admin: 02/08/18 11:22 Dose: 200 mg Apixaban (Eliquis -) 5 mg PO BID [facility] Last Admin: 02/08/18 11:22 Dose: 5 mg Atorvastatin Calcium (Lipitor -) 10 mg PO HS [facility] Last Admin: 02/07/18 21:39 Dose: 10 mg Dextrose (D5w -) 1,000 mls @ 42 mls/hr IV ASDIR [facility] Last Admin: 02/08/18 11:21 Dose: 42 mls/hr Metoprolol Tartrate (Lopressor Injection -) 5 mg IVPUSH Q8H PRN PRN Reason: TACHYCARDIA Last Admin: 02/02/18 15:15 Dose: 5 mg Metoprolol Tartrate (Lopressor -) 50 mg PO TID [facility] Last Admin: 02/08/18 05:47 Dose: 50 mg Pantoprazole Sodium (Protonix Iv) 40 mg IVPUSH DAILY [facility] Last Admin: 02/08/18 11:22 Dose: 40 mg - Objective Vital Signs: Vital Signs Temperature 97.6 F 02/08/18 05:38 Pulse Rate 69 02/08/18 08:33 Respiratory Rate 18 02/08/18 08:33 Blood Pressure 99/40 L 02/08/18 08:33 O2 Sat by Pulse Oximetry (%) 95 02/08/18 08:33 Constitutional: Yes: Calm, Thin Eyes: Yes: WNL HENT: Yes: WNL Neck: Yes: WNL Cardiovascular: Yes: Pulse Irregular, S1, S2 Respiratory: Yes: Diminished Gastrointestinal: Yes: Normal Bowel Sounds, Soft Extremities: Yes: WNL Edema: No Labs: CBC, BMP 02/08/18 05:30 02/08/18 05:30 INR, PTT INR 2.53 (0.83-1.09) H 01/27/18 20:10 Problem List - Problems (1) Altered mental status Code(s): R41.82 - ALTERED MENTAL STATUS, UNSPECIFIED (2) Elevated troponin I level Code(s): R74.8 - ABNORMAL LEVELS OF OTHER SERUM ENZYMES (3) Pneumonia Code(s): J18.9 - PNEUMONIA, UNSPECIFIED ORGANISM Qualifiers: Pneumonia type: due to Pneumococcus Laterality: right Lung location: middle lobe of lung Qualified Code(s): J13 - Pneumonia due to Streptococcus pneumoniae (4) Atrial fibrillation Code(s): I48.91 - UNSPECIFIED ATRIAL FIBRILLATION Qualifiers: Atrial fibrillation type: chronic Qualified Code(s): I48.2 - Chronic atrial fibrillation (5) Dementia Code(s): F03.90 - UNSPECIFIED DEMENTIA WITHOUT BEHAVIORAL DISTURBANCE Qualifiers: Dementia type: unspecified type Dementia behavioral disturbance: without behavioral disturbance Qualified Code(s): F03.90 - Unspecified dementia without behavioral disturbance (6) ASHD (arteriosclerotic heart disease) Code(s): I25.10 - ATHSCL HEART DISEASE OF [place] CORONARY ARTERY W/O ANG PCTRS (7) Pleural effusion Code(s): J90 - PLEURAL EFFUSION, NOT ELSEWHERE CLASSIFIED Assessment/Plan IMP: CHF Bilateral Pleural effusion: S/P placement of a right sided pleural decompression catheter. Transudate AMS Elevated troponin likely due to demand ischemia Dementia AFib with RVR HTN PLAN: O2 as needed Aspiration precautions monitor lytes,renal function rate control DR SPENCER
--- NOTE | 2018-02-08 12:15 | PN ---
Progress Note, [employer] - Note Progress Note: Selected Entries 02/08/18 02/08/18 02:00 05:38 Temperature 96.4 F L 97.6 F Laboratory Tests 02/08/18 05:30 WBC 6.9 MBS completed. One instance of silent aspiration on nectar thick liquid. Hang up in pharynx. My concern is honey thick would cause greater hang up and aspiration risk. Continue puree and nectar thick liquid with compensatory strategy recommendations on MBS Reviewed with staff. Monitor for sufficient PO acceptance and tolerance.
--- NOTE | 2018-02-08 14:50 | PN ---
Progress Note, Physician Chief Complaint: Mr Garibay is awake and without complaint. No cp, sob, n/v. - Current Medication List Current Medications: Active Medications Amiodarone HCl (Cordarone -) 200 mg PO DAILY [facility] Last Admin: 02/08/18 11:22 Dose: 200 mg Apixaban (Eliquis -) 5 mg PO BID [facility] Last Admin: 02/08/18 11:22 Dose: 5 mg Atorvastatin Calcium (Lipitor -) 10 mg PO HS [facility] Last Admin: 02/07/18 21:39 Dose: 10 mg Dextrose (D5w -) 1,000 mls @ 42 mls/hr IV ASDIR [facility] Last Admin: 02/08/18 11:21 Dose: 42 mls/hr Metoprolol Tartrate (Lopressor Injection -) 5 mg IVPUSH Q8H PRN PRN Reason: TACHYCARDIA Last Admin: 02/02/18 15:15 Dose: 5 mg Metoprolol Tartrate (Lopressor -) 50 mg PO TID [facility] Last Admin: 02/08/18 05:47 Dose: 50 mg Pantoprazole Sodium (Protonix Iv) 40 mg IVPUSH DAILY [facility] Last Admin: 02/08/18 11:22 Dose: 40 mg - Objective Vital Signs: Vital Signs Temperature 36.4 C 02/08/18 05:38 Pulse Rate 69 02/08/18 08:33 Respiratory Rate 18 02/08/18 08:33 Blood Pressure 99/40 L 02/08/18 08:33 O2 Sat by Pulse Oximetry (%) 95 02/08/18 08:33 Constitutional: Yes: Well Nourished, No Distress, Calm Cardiovascular: Yes: Tachycardia, Pulse Irregular. No: Gallop, Murmur, Rub Respiratory: Yes: Regular, CTA Bilaterally. No: Rales, Rhonchi, Wheezes Gastrointestinal: Yes: Normal Bowel Sounds, Soft. No: Distention, Tenderness Extremities: Yes: WNL Edema: No Labs: CBC, BMP 02/08/18 05:30 02/08/18 05:30 INR, PTT INR 2.53 (0.83-1.09) H 01/27/18 20:10 Problem List - Problems (1) Pneumonia Code(s): J18.9 - PNEUMONIA, UNSPECIFIED ORGANISM Qualifiers: Pneumonia type: due to Pneumococcus Laterality: right Lung location: middle lobe of lung Qualified Code(s): J13 - Pneumonia due to Streptococcus pneumoniae (2) Acute metabolic encephalopathy Code(s): G93.41 - METABOLIC ENCEPHALOPATHY (3) CHF exacerbation Code(s): I50.9 - HEART FAILURE, UNSPECIFIED Qualifiers: Heart failure type: combined systolic and diastolic Qualified Code(s): I50.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 (4) Pleural effusion Code(s): J90 - PLEURAL EFFUSION, NOT ELSEWHERE CLASSIFIED (5) Sepsis Code(s): A41.9 - SEPSIS, UNSPECIFIED ORGANISM (6) Acute renal failure Code(s): N17.9 - ACUTE KIDNEY FAILURE, UNSPECIFIED Qualifiers: Acute renal failure type: unspecified Qualified Code(s): N17.9 - Acute kidney failure, unspecified (7) Atrial fibrillation Code(s): I48.91 - UNSPECIFIED ATRIAL FIBRILLATION Qualifiers: Atrial fibrillation type: chronic Qualified Code(s): I48.2 - Chronic atrial fibrillation (8) CKD (chronic kidney disease) stage 3, GFR 30-59 ml/min Code(s): N18.3 - CHRONIC KIDNEY DISEASE, STAGE 3 (MODERATE) (9) Dementia Code(s): F03.90 - UNSPECIFIED DEMENTIA WITHOUT BEHAVIORAL DISTURBANCE Qualifiers: Dementia type: unspecified type Dementia behavioral disturbance: without behavioral disturbance Qualified Code(s): F03.90 - Unspecified dementia without behavioral disturbance (10) NSTEMI (non-ST elevated myocardial infarction) Code(s): I21.4 - NON-ST ELEVATION (NSTEMI) MYOCARDIAL INFARCTION Assessment/Plan (1) Pneumonia Assessment/Plan: -s/p full treatment Code(s): J18.9 - PNEUMONIA, UNSPECIFIED ORGANISM Qualifiers: Pneumonia type: due to Pneumococcus Laterality: right Lung location: middle lobe of lung Qualified Code(s): J13 - Pneumonia due to Streptococcus pneumoniae (2) Acute metabolic encephalopathy Assessment/Plan: -patient at baseline Code(s): G93.41 - METABOLIC ENCEPHALOPATHY (3) CHF exacerbation Assessment/Plan: -resolved -not on diuretics per cardiology Code(s): I50.9 - HEART FAILURE, UNSPECIFIED Qualifiers: Heart failure type: combined systolic and diastolic Qualified Code(s): I50.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 (4) Pleural effusion Assessment/Plan: -chest tube removed Code(s): J90 - PLEURAL EFFUSION, NOT ELSEWHERE CLASSIFIED (5) Sepsis Assessment/Plan: -resolved -s/p full course of rocephin Code(s): A41.9 - SEPSIS, UNSPECIFIED ORGANISM (6) Acute renal failure Assessment/Plan: -now at baseline -monitor Code(s): N17.9 - ACUTE KIDNEY FAILURE, UNSPECIFIED Qualifiers: Acute renal failure type: unspecified Qualified Code(s): N17.9 - Acute kidney failure, unspecified (7) Atrial fibrillation Assessment/Plan: -cardiology following -on amiodarone, lopressor, and eliquis Code(s): I48.91 - UNSPECIFIED ATRIAL FIBRILLATION Qualifiers: Atrial fibrillation type: chronic Qualified Code(s): I48.2 - Chronic atrial fibrillation (8) CKD (chronic kidney disease) stage 3, GFR 30-59 ml/min Assessment/Plan: -at baseline Code(s): N18.3 - CHRONIC KIDNEY DISEASE, STAGE 3 (MODERATE) (9) Dementia Assessment/Plan: -mental status much improved Code(s): F03.90 - UNSPECIFIED DEMENTIA WITHOUT BEHAVIORAL DISTURBANCE Qualifiers: Dementia type: unspecified type Dementia behavioral disturbance: without behavioral disturbance Qualified Code(s): F03.90 - Unspecified dementia without behavioral disturbance (10) NSTEMI -cardiology following -medical management (11) Hypernatremia -continue D5 -monitor -encourage po intake
[2018-02-08] MEDS ORDERED: ACETAMINOPHEN 325 MG TABLET (FP) ONE (17:53)
[2018-02-08] MEDS: ATORVASTATIN CA 10 MG TABLET (FP) PO SCH (21:58)
[2018-02-09 06:24] VITALS: TEMP 97.2
[2018-02-09] MEDS: METOPROLOL TARTRATE 50 MG TABLET (FP) PO SCH (06:26)
[2018-02-09 07:48] LABS: BASO % 0.9 % (0-2.0); HEMATOCRIT 48.2 % (35.4-49); HEMOGLOBIN 15.3 GM/dL (11.7-16.9); LYMPH % 10.9 % (8-40); MCH 30.3 pg (25.7-33.7); MCHC 31.8 g/dl (32.0-35.9); MEAN CELL VOLUME 95.2 fl (80-96); MEAN PLT VOLUME 10.5 fl (7.5-11.1); MONO % 9.3 % (3.8-10.2); NEUT % 76.9 % (42.8-82.8); PLATELET COUNT 136 K/MM3 (134-434); RBC 5.06 M/mm3 (4.00-5.60); RDW 15.9 % (11.9-15.9)
[2018-02-09 08:26] LABS: ANION GAP 7 MMOL/L (8-16); BLOOD UREA NITROGEN 28 mg/dL (7-18); CALCIUM 8.7 mg/dL (8.5-10.1); CHLORIDE 108 mmol/L (98-107); CO2 29 mmol/L (21-32); CREATININE 1.3 mg/dL (0.55-1.3); GLUCOSE,RANDOM 71 mg/dL (74-106); MAGNESIUM 2.2 mg/dL (1.8-2.4); PHOSPHOROUS 3.2 mg/dL (2.5-4.9); POTASSIUM 4.4 mmol/L (3.5-5.1); SODIUM 145 mmol/L (136-145)
--- NOTE | 2018-02-09 09:06 | DS ---
Physical Examination Vital Signs: Vital Signs Temperature 36.2 C L 02/09/18 06:00 Pulse Rate 93 H 02/09/18 06:00 Respiratory Rate 20 02/09/18 06:00 Blood Pressure 125/68 02/09/18 06:00 O2 Sat by Pulse Oximetry (%) 94 L 02/08/18 21:00 Constitutional: Yes: Well Nourished, No Distress, Calm Cardiovascular: Yes: Regular Rate and Rhythm. No: Gallop, Murmur, Rub Respiratory: Yes: Regular, CTA Bilaterally. No: Rales, Rhonchi, Wheezes Gastrointestinal: Yes: Normal Bowel Sounds, Soft. No: Distention, Tenderness Extremities: Yes: WNL Edema: No Labs: CBC, BMP 02/09/18 06:15 02/09/18 06:15 Discharge Summary Reason For Visit: URINARY TRACT INFECTION,ATRIAL FRIBRILLATION, Current Active Problems Acute metabolic encephalopathy (Acute) Acute respiratory failure with hypoxia (Acute) Altered mental status (Acute) CHF exacerbation (Acute) Dysphagia (Acute) Elevated troponin I level (Acute) Goals of care, counseling/discussion (Acute) Hyperkalemia (Acute) Hypernatremia (Acute) NSTEMI (non-ST elevated myocardial infarction) (Acute) Pleural effusion (Acute) Pleural effusion (Acute) Pneumonia (Acute) Poor fluid intake (Acute) Sepsis (Acute) UTI (urinary tract infection) (Acute) Hospital Course: (1) Pneumonia Code(s): J18.9 - PNEUMONIA, UNSPECIFIED ORGANISM Qualifiers: Pneumonia type: due to Pneumococcus Laterality: right Lung location: middle lobe of lung Qualified Code(s): J13 - Pneumonia due to Streptococcus pneumoniae (2) Acute metabolic encephalopathy Code(s): G93.41 - METABOLIC ENCEPHALOPATHY (3) CHF exacerbation Code(s): I50.9 - HEART FAILURE, UNSPECIFIED Qualifiers: Heart failure type: combined systolic and diastolic Qualified Code(s): I50.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 (4) Pleural effusion Code(s): J90 - PLEURAL EFFUSION, NOT ELSEWHERE CLASSIFIED (5) Sepsis Code(s): A41.9 - SEPSIS, UNSPECIFIED ORGANISM (6) Acute renal failure Code(s): N17.9 - ACUTE KIDNEY FAILURE, UNSPECIFIED Qualifiers: Acute renal failure type: unspecified Qualified Code(s): N17.9 - Acute kidney failure, unspecified (7) Atrial fibrillation Code(s): I48.91 - UNSPECIFIED ATRIAL FIBRILLATION Qualifiers: Atrial fibrillation type: chronic Qualified Code(s): I48.2 - Chronic atrial fibrillation (8) CKD (chronic kidney disease) stage 3, GFR 30-59 ml/min Code(s): N18.3 - CHRONIC KIDNEY DISEASE, STAGE 3 (MODERATE) (9) Dementia Code(s): F03.90 - UNSPECIFIED DEMENTIA WITHOUT BEHAVIORAL DISTURBANCE Qualifiers: Dementia type: unspecified type Dementia behavioral disturbance: without behavioral disturbance Qualified Code(s): F03.90 - Unspecified dementia without behavioral disturbance (10) NSTEMI (11) Hypernatremia Mr Garibay is a very pleasant 87 year old male who came in with sepsis secondary to pneumonia. He was admitted to the hospital and seen by ID. He finished a full course of antibiotics and is stable. He had afib with rvr and his course was complicated by an NSTEMI. He was followed by cardiology since admission. His NSTEMI was medically managed and his medications were adjusted to control his afib. He had YOGI on CKD that was responsive to IVF and is now at baseline. He was also noted to have hypernatremia and this was managed with IVF. He is encouraged to drink, this will need to be done at the SNF as well. He has history of CHF and was found to have a pleural effusion on admission, this was treated with a chest tube. That has been removed and he is cleared by pulmonary for discharge. He is not on diuretics. Currently he is stable for discharge to SNF today, he may need palliative care as an outpatient but will defer this to his PCP if he does not improve. 36 minutes spent in preparation of this discharge Condition: Stable - Instructions Diet, Activity, Other Instructions: dysphagia puree with magic cup and ensure pudding, nectar thick liquids. Up with assistance, further activity per PT at SNF Referrals: Chan Slaughter MD [Staff Physician] - Kartik Harris MD [Staff Physician] - Nba Lopes MD [Staff Physician] - Disposition: ASSISTED FACILITY - Home Medications Comprehensive Discharge Medication List: Ambulatory Orders Apixaban [Eliquis] 5 mg PO BID 01/28/18 Pitavastatin Calcium [Livalo] 2 mg PO HS 01/28/18 Amiodarone HCl [Cordarone -] 200 mg PO DAILY tablet 02/09/18 Metoprolol Tartrate [Lopressor -] 50 mg PO TID tablet 02/09/18 Pantoprazole Sodium [Protonix -] 40 mg PO DAILY #30 tablet.ec 02/09/18
[2018-02-09 09:27] VITALS: BP 116/72; PULSE 82
[2018-02-09] MEDS: APIXABAN 5 MG TABLET PO SCH (11:39)
[2018-02-09] MEDS: AMIODARONE HCL 200 MG TABLET (FP) PO SCH (11:39)
[2018-02-09] MEDS: PANTOPRAZOLE SODIUM 40 MG VIAL IVPUSH SCH (11:39)
--- NOTE | 2018-02-09 11:45 | PN ---
Progress Note (short form) - Note Progress Note: cc: alt ms s: no cp sob palps dizzy Current Medications Generic Name Dose Route Start Last Admin Trade Name Freq PRN Reason Stop Dose Admin Amiodarone HCl 200 mg 02/05/18 10:00 02/09/18 11:39 Cordarone - PO 200 mg DAILY ROSALIND Administration Apixaban 5 mg 02/06/18 22:00 02/09/18 11:39 Eliquis - PO 5 mg BID ROSALIND Administration Atorvastatin Calcium 10 mg 01/28/18 22:00 02/08/18 21:58 Lipitor - PO 10 mg HS ROSALIND Administration Metoprolol Tartrate 5 mg 01/28/18 17:17 02/02/18 15:15 Lopressor Injection - IVPUSH 5 mg Q8H PRN Administration TACHYCARDIA Metoprolol Tartrate 50 mg 02/04/18 11:39 02/09/18 06:26 Lopressor - PO 50 mg TID ROSALIND Administration Pantoprazole Sodium 40 mg 01/28/18 10:00 02/09/18 11:39 Protonix Iv IVPUSH Not Given DAILY ROSALIND Vital Signs: Vital Signs Period Temp Pulse Resp BP Sys/Melchor Pulse Ox Last 24 Hr 97.2 F-98 F 82-145 18-20 97-125/51-72 94-98 Constitutional: Yes: Well Nourished, No Distress Eyes: No: Sclera Icterus Respiratory: Yes: CTA Bilaterally, poor effort. No: Accessory Muscle Use, Rales , Wheezes Gastrointestinal: Yes: Normal Bowel Sounds. No: Distention, Hepatomegaly, Palpable Mass, Tenderness Cardiovascular: Yes: Pulse Irregular JVD: No Heart Sounds: Yes: S1, S2. No: Gallop Murmur: No: Systolic Murmur, Diastolic Murmur Extremities: No: Cool, Cyanosis Edema: casey pedal edema Integumentary: No: Jaundice Neurological: No: awake, confused Psychiatric: No: Agitated CBC, BMP 02/09/18 06:15 02/09/18 06:15 ECG 01/27 (ER): rapid afib (135 bpm); nl axis. no path q's. nonsp TWAs (much improved ST-Ts vs prior 04/2017) CT chest: moderate to large bilat effusion with adjacent consolidation/atx. thickened interstitial septa c/w venous congestion. atx and infiltrates RML. ascending aorta 4.[address] head: no acute pathology or blood Echo 03/18: 1. Atrial fibrillation, with HRs ranging from 83-123 bpm (mostly in 90s-110s). 2. The left ventricular size is normal. 3. LA pressure is elevated. 4. Assessment of LVEF is confounded by atrial fibrillation rhythm with very variable R-R intervals. When analyzing beats occurring during average R-R intervals, EF appears to be [id number] reduced, in the range of 45%. Global hypokinesis present. 5. The right ventricle is normal in size and function. 6. Left atrium is severely dilated by volume. 7. The right atrium is mildly enlarged. 8. Trace amount of aortic regurgitation. 9. Moderate mitral regurgitation is present (central jet). Estimated regurgitant volume = 22 cc, ERO 0.15 cm2. 10. Moderate tricuspid regurgitation present. (No systolic flow reversal present in hepatic vein.) 11. Unable to estimate RVSP due to inadequate TR jet spectral doppler profile ( it is at least 35 mmHg). 12. Normal inferior vena cava with normal inspiratory collapse consistent with estimated right atrial pressure of 3 mmHg. 13. There is a trivial pericardial effusion present, consistent with physiologic fluid level. Holter 02/16: Afib, not controlled: average 107, max 145, 12 hours with mean > 100 bpm. no mila's MPI 2014 (persantine): no ischemia; (diaphragmatic attenuation artifact); nl EF , no RWMA tele: afib, rate ok echo 12/2017 EF 30-35%, RV nl size and function, LA/RA mildly dilated, mild to mod MR, mild TR, mild AR, small pericardal effusion Assessment/Plan altered MS, lactic acidosis, hypothermia, pneumococcal PNA: -abx per ID YOGI: -baseline creat 1.3-1.4 -YOGI here ? vol depletion based on family's provided hx -creat 2.0-->trended down wt IVF, 1.5 -IVF stopped persistent afib, rapid HR with tachy-CMP: - chronic uncontrolled rates with new-onset mild tachymyopathy on echo 03/18. - rate control c/b low sbp's (sbp's typically 80s-90s) and symptomatic orthostatic hypotension. 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 - lopressor incr'd to tid as outpt early 2017 with better HR control, but had to cut back dose recently due to BPs in 80s-90 with slight orthostatic drop in office. - HRs have remained reasonable in office, may increase here as pt has h/o agitated sundowning in hospital - will continue regular outpt f/u of rate control as doing, and if further LVEF decline despite max tolerated AVN gale regimen, will add amio and then consider AVN ablation/PM - fludrocortisone for BP support - balance is poor, and appears to be the major source of prior h/o multiple falls. however he has been very cautious and had avoided falls for many months now, until recent episode at home several weeks ago. - CHADS VASC 3. per Dr. Fay: previous outpt discussions with pt//dtr in past regarding risks/benefits of AC (with falls/ICH risk), aspirin alone (with incr'd embolic CVA risk) and Watchman device: they have declined Watchman and opted for continued AC with falls precautions for now. - not anemic here, no signs bleeding. -01/31: cont metoprolol to 37.5 mg TID, monitor tele -02/01: rvr, often refusing meds. increased lopressor to 50 tid, - 02/02: RVR, taking lopressor. increased to 75 mg TID, PRN IV lopressor. cont tele. cont ac. was on eliquis but changed to lovenox for ACS as below. -02/03: BP stable on lopressor, occasionally RVR, generally controlled. cont metoprolol 75 mg TID -02/04: low home BP and orthostatic hypotension, started on amiodarone with plan to wean metoprolol - 02/05: HR remains elevated with episodes of RVR 150s-160s. -02/07-10: continue amiodarone and metoprolol at current doses. cont eliquis cardiomyopathy, ? acute mixed syst/diast CHF: - 03/2017 with newly depressed LVEF on echo, moderate MR--presumed related tachymyopathy. - no prior clinical chf. - currently with nonspecific sx's (alt MS), but CT chest showing signif bilat effusions and suggestion of interstitial edema suspected - BNP 14K, difficult to interpret in setting of signif reduced GFR (no priors available) - EF 30-35% on echo here, lower than prior - had been receiving IVF for YOGI, dc'ed - low dose BB as tolerates. low bp will not tolerate MAJOR/ARB - 02/04-10: appears well-compensated, despite bilateral effusions persisting on CXR. continue holding diuretics (baseline renal insufficiency, orthostatic hypotension), monitor - s/p right pleural decompression catheter, now removed, pulm following CAD s/p MS and prior PCI's, + NSTEMI: - initially trop in indeterminate range with flat trend x 3 - repeat trop sent 02/01 (done for unclear reasons) showed elevated trop, peaked at 11. ECG unchanged and pt not complaining of sxs but given sharp rise in trop treated as nstemi (with asa, bb, statin lovenox)-->will cont with med management of cad - prior patent mlad and Lcx stent with ? residual rca disease (but no ischemia on subsequent stress testing). last stent 2005. positional light-headedness/orthostatic hypotension/chronic dysequilibrium/ repeated falls: - no recent falls - midodrine and fludrocortisone previously tried, then held due to pt/ preferences (concerned about s.e. potential of all new meds) and lack of clear efficacy - fludrocort resumed recently for bp's in 80s persistently--now on hold for effusions/chf cardiac granados stable for snf
== END 2018-02-09 12:15 | DRG 871 ==
LOC: JER 18:48 → JERBED 23:38 → J4S 01-28 16:56 → J4W 01-31 21:15
PROVIDERS: ADMIT Internal Medicine; ATTEND Internal Medicine
PROC: 0WPBX0Z Removal of Drainage Device from Left Pleural Cavity, External Approach (ICD-10-PCS; principal; 2018-01-27)
DX: A41.9 Sepsis, unspecified organism (principal); J96.01 Acute respiratory failure with hypoxia; G93.41 Metabolic encephalopathy; J13 Pneumonia due to Streptococcus pneumoniae; I21.4 Non-ST elevation (NSTEMI) myocardial infarction; I50.43 Acute on chronic combined systolic (congestive) and diastolic (congestive) heart failure; N39.0 Urinary tract infection, site not specified; J90 Pleural effusion, not elsewhere classified; N17.9 Acute kidney failure, unspecified; I13.0 Hypertensive heart and chronic kidney disease with heart failure and stage 1 through stage 4 chronic kidney disease, or unspecified chronic kidney disease; I24.8 Other forms of acute ischemic heart disease; E87.2 Acidosis; E87.0 Hyperosmolality and hypernatremia; J98.11 Atelectasis; F03.90 Unspecified dementia, unspecified severity, without behavioral disturbance, psychotic disturbance, mood disturbance, and anxiety; I25.10 Atherosclerotic heart disease of native coronary artery without angina pectoris; E78.5 Hyperlipidemia, unspecified; I25.2 Old myocardial infarction; C61 Malignant neoplasm of prostate; E53.8 Deficiency of other specified B group vitamins; D69.6 Thrombocytopenia, unspecified; Z79.01 Long term (current) use of anticoagulants; N18.3 Chronic kidney disease, stage 3 (moderate); I48.2 Chronic atrial fibrillation; E86.0 Dehydration; I34.0 Nonrheumatic mitral (valve) insufficiency; I36.1 Nonrheumatic tricuspid (valve) insufficiency; I95.1 Orthostatic hypotension; E87.5 Hyperkalemia
CPT/HCPCS: 36415; 70450-TC; 71045-TC-FY; 71250-TC; 74230-TC-FY; 76775-TC; 80048; 80053; 81003; 81015; 82150; 82550; 82553; 82803; 82945; 82962; 83605; 83615; 83735; 83880; 84100; 84157; 84311; 84443; 84484; 85025; 85610; 85730; 87040; 87070; 87075; 87086; 87205; 87899; 89051; 92611-GN; 93005; 93010; 93306-TC; 97116-GP; 97162-GP; 99285-25; J0131; J7030